=== PATIENT | male | born 1935 | race African-American/Black ===

== ENCOUNTER 2017-06-07 12:25 | Inpatient (IN) | payer MEDICARE ==
[2017-06-07] MEDS: IV NORMAL SALINE 1000ML BAG 1,000 ML IV ×4 (12:35→16:25)
[2017-06-07 13:03] LABS: ADD MAN DIFF? NO
[2017-06-07 13:05] LABS: BASO % 0 % (0-3); EOS % 0 % (0-3); HEMATOCRIT 47.7 % (39.0-53.0); HEMOGLOBIN 15.9 g/dL (13.0-17.5); LYMPH # 1.5 x10^3/uL (1.0-4.8); LYMPH % 15 % (24-48); MEAN CORPUSCULAR HEMOGLOBIN 27 pg (25-35); MEAN CORPUSCULAR HGB CONC 33 g/dL (31-37); MEAN CORPUSCULAR VOLUME 80 fL (79-100); MONO % 10 % (0-9); NEUT # 7.4 x10^3uL (1.8-7.7); NEUT % 74 % (31-73); PLATELET COUNT 152 x10^3/uL (140-400); RED BLOOD COUNT 5.99 x10^6/uL (4.30-5.70); RED CELL DISTRIBUTION WIDTH 17.8 % (11.5-14.5); WHITE BLOOD COUNT 9.9 x10^3/uL (4.0-11.0)
[2017-06-07 13:29] LABS: ANION GAP 15 (6-14); BLOOD UREA NITROGEN 38 mg/dL (8-26); BUN/CREATININE RATIO 11 (6-20); CALCIUM 9.5 mg/dL (8.5-10.1); CARBON DIOXIDE 25 mmol/L (21-32); CHLORIDE 104 mmol/L (98-107); CREATININE 3.6 mg/dL (0.7-1.3); GFR 19.7; GLUCOSE 148 mg/dL (70-99); POTASSIUM 4.7 mmol/L (3.5-5.1); SODIUM 144 mmol/L (136-145)
[2017-06-07 13:35] LABS: ALBUMIN 3.9 g/dL (3.4-5.0); ALBUMIN/GLOBULIN RATIO 0.8 (1.0-1.7); ALK PHOS 82 U/L (46-116); ALT (SGPT) 30 U/L (16-63); AST (SGOT) 17 U/L (15-37); CREATINE KINASE 66 U/L (39-308); TOTAL BILIRUBIN 0.4 mg/dL (0.2-1.0); TOTAL PROTEIN 8.8 g/dL (6.4-8.2)
[2017-06-07 13:45] LABS: LACTIC ACID 3.3 mmol/L (0.4-2.0)
[2017-06-07] MEDS ORDERED: ONDANSETRON PF 4 MG/2 ML VIAL. IV (14:30)
[2017-06-07] MEDS: VANCOMYCIN 2 GM in IV DEXTROSE 5% 500 ML IV (14:49)
[2017-06-07 15:47] LABS: BILIRUBIN,URINE SMALL (NEG); CLARITY,URINE TURBID; COLOR,URINE AMBER; GLUCOSE,URINE NEGATIVE (NEG); NITRITE,URINE NEGATIVE (NEG); PROTEIN,URINE 100 mg/dL (NEG-TRACE)
[2017-06-07 16:08] LABS: AMORPHOUS SEDIMENT,UR PRESENT /HPF; BACTERIA,URINE FEW /HPF (0-FEW); HYALINE CASTS, URINE MODERATE /HPF
[2017-06-07] MEDS: VANCOMYCIN PER PHARMACY MC (19:32)
[2017-06-07 20:29] LABS: LACTIC ACID 1.9 mmol/L (0.4-2.0)
[2017-06-07 21:57] LABS: INFLUENZA A PATIENT NEGATIVE (NEGATIVE); INFLUENZA B PATIENT NEGATIVE (NEGATIVE); OBC FLU VALID
[2017-06-08 05:47] LABS: ANION GAP 11 (6-14); BLOOD UREA NITROGEN 35 mg/dL (8-26); CALCIUM 8.7 mg/dL (8.5-10.1); CARBON DIOXIDE 24 mmol/L (21-32); CHLORIDE 109 mmol/L (98-107); CREATININE 1.7 mg/dL (0.7-1.3); GFR 46.9; GLUCOSE 87 mg/dL (70-99); POTASSIUM 4.6 mmol/L (3.5-5.1); SODIUM 144 mmol/L (136-145)
[2017-06-08] MEDS: IV NORMAL SALINE 1000ML BAG 1,000 ML IV ×2 (12:00→12:30)
[2017-06-08] MEDS: POLYETHYLENE GLYCOL 3350 17 GM PACKET. PO (12:31)
[2017-06-08] MEDS: FAMOTIDINE 20 MG TABLET. PO ×2 (12:38→22:46)
[2017-06-08] MEDS: levETIRAcetam 500 MG TABLET PO ×2 (12:38→22:47)
[2017-06-08] MEDS: ACETAMINOPHEN 325 MG TABLET. PO ×3 (12:38→22:47)
[2017-06-08] MEDS: VANCOMYCIN PER PHARMACY MC (20:05)
[2017-06-08 22:20] LABS: MRSA BY PCR Negative (Negative)
[2017-06-08] MEDS: VANCOMYCIN 1.25 GM in IV 1/2 NORMAL SALINE 250 ML IV (22:46)
[2017-06-08] MEDS: LACTOBACILLUS RHAMNOSUS GG 1 CAPSULE. PO (22:47)
[2017-06-09] MEDS: IV NORMAL SALINE 1000ML BAG 1,000 ML IV ×3 (01:20→16:33)
[2017-06-09 04:28] LABS: ADD MAN DIFF? NO
[2017-06-09 04:32] LABS: BASO % 1 % (0-3); EOS # 0.4 x10^3/uL (0.0-0.7); EOS % 6 % (0-3); HEMOGLOBIN 12.7 g/dL (13.0-17.5); LYMPH # 1.5 x10^3/uL (1.0-4.8); LYMPH % 24 % (24-48); MEAN CORPUSCULAR HEMOGLOBIN 26 pg (25-35); MEAN CORPUSCULAR HGB CONC 34 g/dL (31-37); MEAN CORPUSCULAR VOLUME 79 fL (79-100); MONO # 0.6 x10^3/uL (0.0-1.1); MONO % 10 % (0-9); NEUT # 3.7 x10^3uL (1.8-7.7); NEUT % 59 % (31-73); PLATELET COUNT 96 x10^3/uL (140-400); RED BLOOD COUNT 4.81 x10^6/uL (4.30-5.70); RED CELL DISTRIBUTION WIDTH 17.9 % (11.5-14.5); WHITE BLOOD COUNT 6.3 x10^3/uL (4.0-11.0)
[2017-06-09 04:50] LABS: ANION GAP 9 (6-14); BLOOD UREA NITROGEN 26 mg/dL (8-26); CARBON DIOXIDE 25 mmol/L (21-32); CHLORIDE 107 mmol/L (98-107); CREATININE 1.1 mg/dL (0.7-1.3); GFR 77.5; GLUCOSE 102 mg/dL (70-99); POTASSIUM 4.4 mmol/L (3.5-5.1); SODIUM 141 mmol/L (136-145)
[2017-06-09] MEDS: ACETAMINOPHEN 325 MG TABLET. PO ×3 (06:00→19:30)
[2017-06-09] MEDS: POLYETHYLENE GLYCOL 3350 17 GM PACKET. PO (09:00)
[2017-06-09] MEDS: VANCOMYCIN PER PHARMACY MC (10:15)
[2017-06-09] MEDS: FAMOTIDINE 20 MG TABLET. PO ×2 (11:04→20:38)
[2017-06-09] MEDS: levETIRAcetam 500 MG TABLET PO ×2 (11:04→20:38)
[2017-06-09] MEDS: LACTOBACILLUS RHAMNOSUS GG 1 CAPSULE. PO ×2 (11:04→20:38)
[2017-06-09] MEDS: VANCOMYCIN 1.25 GM in IV 1/2 NORMAL SALINE 250 ML IV (20:39)
[2017-06-10] MEDS: ACETAMINOPHEN 325 MG TABLET. PO ×3 (00:08→14:17)
[2017-06-10 05:14] LABS: ANION GAP 11 (6-14); BLOOD UREA NITROGEN 20 mg/dL (8-26); CALCIUM 8.8 mg/dL (8.5-10.1); CARBON DIOXIDE 23 mmol/L (21-32); CHLORIDE 107 mmol/L (98-107); CREATININE 0.9 mg/dL (0.7-1.3); GFR 97.8; GLUCOSE 95 mg/dL (70-99); POTASSIUM 4.5 mmol/L (3.5-5.1); SODIUM 141 mmol/L (136-145)
[2017-06-10 06:57] LABS: ADD MAN DIFF? NO
[2017-06-10 07:19] LABS: BASO % 1 % (0-3); EOS # 0.2 x10^3/uL (0.0-0.7); EOS % 4 % (0-3); HEMATOCRIT 37.7 % (39.0-53.0); HEMOGLOBIN 12.6 g/dL (13.0-17.5); LYMPH # 1.3 x10^3/uL (1.0-4.8); LYMPH % 22 % (24-48); MEAN CORPUSCULAR HEMOGLOBIN 27 pg (25-35); MEAN CORPUSCULAR HGB CONC 34 g/dL (31-37); MEAN CORPUSCULAR VOLUME 79 fL (79-100); MONO # 0.7 x10^3/uL (0.0-1.1); MONO % 12 % (0-9); NEUT # 3.7 x10^3uL (1.8-7.7); NEUT % 62 % (31-73); PLATELET COUNT 84 x10^3/uL (140-400); RED BLOOD COUNT 4.74 x10^6/uL (4.30-5.70)
[2017-06-10] MEDS: LACTOBACILLUS RHAMNOSUS GG 1 CAPSULE. PO (08:51)
[2017-06-10] MEDS: FAMOTIDINE 20 MG TABLET. PO (08:51)
[2017-06-10] MEDS: levETIRAcetam 500 MG TABLET PO (08:52)
[2017-06-10] MEDS: POLYETHYLENE GLYCOL 3350 17 GM PACKET. PO (08:52)
[2017-06-10] MEDS ORDERED: INFLUENZA VAX SCREEN BY RX. MC (12:35)
[2017-06-10] MEDS: FLU VACC QS2017-18 (36MOS+)/PF 0.5 ML SYRINGE. VAX IM (14:21)
[2017-06-11] MEDS ORDERED: ERGOCALCIFEROL (VITAMIN D2) 50,000 UNIT CAPSULE. PO (09:00)
[2017-07-08] MEDS ORDERED: CYANOCOBALAMIN (VITAMIN B-12) 1,000 MCG/ML VIAL IM (09:00)
== END 2017-06-10 15:13 | DRG 871 ==
LOC: ER 12:25 → 6 SOUTH 14:22
DX: A41.9 Sepsis, unspecified organism (principal); N17.0 Acute kidney failure with tubular necrosis; N39.0 Urinary tract infection, site not specified; G40.909 Epilepsy, unspecified, not intractable, without status epilepticus; K21.9 Gastro-esophageal reflux disease without esophagitis; N18.9 Chronic kidney disease, unspecified; R65.20 Severe sepsis without septic shock; Z82.49 Family history of ischemic heart disease and other diseases of the circulatory system; Z86.73 Personal history of transient ischemic attack (TIA), and cerebral infarction without residual deficits; Z96.641 Presence of right artificial hip joint
CPT/HCPCS: 36415; 51701; 70551; 71045; 80048; 80053; 81001; 82550; 83605; 85025; 87040; 87086; 87641; 87804; 87804-59; 90686; 92507-GN; 92523-GN; 93005; 95816; 96361; 96365; 97161-GP; 97165-GO; 99285; 99285-25; J0690; J3370; J7030

== ENCOUNTER → 2018-03-22 | Outpatient (CLI) | payer MEDICARE ==
[2017-06-10 11:50] VITALS: BP 112/61
[~2018-03-22] MED LIST: ACET325T9 PO; CYAN10002 IM; ERGO500027 PO; FAMO20TA5 PO; LEVE750T41 PO; POLY17PO29 PO
[2018-03-22 16:42] LABS: BASO % 1 % (0-3); EOS # 0.2 x10^3/uL (0.0-0.7); EOS % 3 % (0-3); HEMATOCRIT 41.7 % (39.0-53.0); HEMOGLOBIN 14.2 g/dL (13.0-17.5); LYMPH # 1.8 x10^3/uL (1.0-4.8); LYMPH % 35 % (24-48); MEAN CORPUSCULAR HEMOGLOBIN 28 pg (25-35); MEAN CORPUSCULAR HGB CONC 34 g/dL (31-37); MEAN CORPUSCULAR VOLUME 83 fL (79-100); MONO # 0.7 x10^3/uL (0.0-1.1); MONO % 13 % (0-9); NEUT # 2.6 x10^3uL (1.8-7.7); NEUT % 49 % (31-73); PLATELET COUNT 215 x10^3/uL (140-400); RED BLOOD COUNT 5.04 x10^6/uL (4.30-5.70); RED CELL DISTRIBUTION WIDTH 16.4 % (11.5-14.5); WHITE BLOOD COUNT 5.2 x10^3/uL (4.0-11.0)
[2018-03-22 16:51] LABS: BARBITURATES NEG (NEG); BENZODIAZEPINES NEG (NEG); CANNABINOIDS NEG (NEG); COCAINE NEG (NEG); METHADONE NEG (NEG); OPIATES NEG (NEG); PHENCYCLIDINE NEG (NEG)
[2018-03-22 16:53] LABS: AMPHETAMINE/METHAMPHETAMINE NEG (NEG)
[2018-03-22 17:04] LABS: ALBUMIN 3.5 g/dL (3.4-5.0); ALBUMIN/GLOBULIN RATIO 0.8 (1.0-1.7); CREATININE 1.3 mg/dL (0.7-1.3); GFR 63.8; POTASSIUM 4.2 mmol/L (3.5-5.1); TOTAL BILIRUBIN 0.2 mg/dL (0.2-1.0)
== END | disposition home or self-care (01) ==
LOC: LAB 15:57
PROVIDERS: ATTEND Psychiatry & Neurology Neurology
DX: R56.9 Unspecified convulsions (principal)
CPT/HCPCS: 36415; 80053; 80307; 82607; 84443; 85025

== ENCOUNTER → 2018-08-17 | Outpatient (CLI) | payer MEDICARE ==
[2017-06-10 11:50] VITALS: BP 112/61
[2018-08-17 13:53] LABS: CREATININE 1.2 mg/dL (0.7-1.3)
[2018-08-17 14:10] LABS: FREE T4 0.73 ng/dL (0.76-1.46); THYROID STIM HORMONE (TSH) 5.542 uIU/mL (0.358-3.74)
== END | disposition home or self-care (01) ==
LOC: LAB 13:13
PROVIDERS: ATTEND Psychiatry & Neurology Neurology
DX: R94.6 Abnormal results of thyroid function studies (principal)
CPT/HCPCS: 36415; 82565; 84439; 84443; 84481; 84520

== ENCOUNTER → 2018-09-14 | Outpatient (CLI) | payer MEDICARE ==
[2017-06-10 11:50] VITALS: BP 112/61
--- NOTE | 2018-09-21 13:22 | SLEEP ---
DATE OF STUDY: 09/14/2018 OBJECTIVE: The patient is an 83-year-old female with hypersomnia, rule out sleep apnea. Height 5 feet 10 inches, weight 217 pounds, body mass index 31. [place] sleep score 10. INTERPRETATION: Sleep architecture is characterized by a sleep efficiency of 75% across the 7 hours of recording time. There is absence of slow-wave sleep, but other staged volumes are normal. The sleep onset latency is 11.5 minutes. Respiratory monitoring shows a total of 77 events for an apnea-hypopnea index of 14.6 events per hour of sleep. The minimum oxygen saturation is 73%. The patient is placed on CPAP treatment during the recording. At a setting of 15 cm, apnea-hypopnea index falls to 2.5 events per hour of sleep. The cardiac monitoring that shows no evidence of arrhythmia. Periodic limb movements of sleep occur at the rate of 25 per hour, 2 per hour associated with arousal. Note that the patient still had snoring on 9 cm, which was the reason for higher CPAP titration. IMPRESSION: Abnormal polysomnogram showing obstructive sleep apnea and hypopnea, treatable on 15 cm of CPAP using a Resp[employer]ics DreamWear medium wide full face mask. RECOMMENDATION: 1. The patient should be established on the CPAP setting. 2. The patient should avoid sedatives and alcohol, avoid the supine position, and pursue weight loss. Thank you for allowing us to help with the patient's care. CHRISTIAN BALL MD DR: CHESTER/hawa JOB#: [id number] / [id number] DANIEL Prieto MD, FERILYN MD
== END | disposition home or self-care (01) ==
LOC: SLPLAB 19:12
PROVIDERS: ATTEND Psychiatry & Neurology Neurology
DX: G47.33 Obstructive sleep apnea (adult) (pediatric) (principal)
CPT/HCPCS: 95810

== ENCOUNTER 2019-12-18 14:08 | Inpatient (IN) | payer MEDICARE ==
[~2019-12-18] VITALS: Ht 177.8 cm; Wt 92.5 kg
[2019-12-18] MEDS ORDERED: IV NORMAL SALINE 1000ML BAG 1,000 ML IV ONE ×3 (14:15→17:30)
--- NOTE | 2019-12-18 14:50 | RAD ---
CT HEAD WO CONTRAST Date: 12/18/2019 2:10 PM Clinical Indication: trauma, mechanical fall, pain Comparison: 10/10/2019. Technique: 5 mm axial tomographic images were obtained of the head without contrast. These were viewed on brain and bone windows. One or more of the following dose reduction techniques were utilized: Automated exposure control (AEC), Adjustment of mA and/or kV according to patient size, Use of iterative reconstruction technique such as ASiR, CT scan done according to ALARA and image gently/image wisely Findings: Moderate generalized cerebral and cerebellar volume loss. Extensive nonspecific periventricular hypoattenuation, most commonly seen with chronic small vessel ischemic disease. Calcified atherosclerosis of the bilateral cavernous and paraclinoid internal carotid arteries and intracranial vertebral arteries. Chronic thalamic, pontine, and cerebellar lacunar infarcts. No intra- or extra-axial mass or fluid collection. No acute hemorrhage. The ventricles are normal in size, shape, and morphology. The dominguez-white matter junction is normal. The subarachnoid cisterns are patent. The visualized paranasal sinuses are normal. The visualized portions of the orbits and globes are normal. The mastoid air cells are clear. The cycle counter topogram shows no lytic lesion or fracture. Impression: No acute intracranial process. Moderate cerebral volume loss. Extensive chronic small vessel ischemic disease. Electronically signed by: Tyron Myers MD (12/18/2019 2:47 PM) [id number]
[2019-12-18 16:22] LABS: BILIRUBIN,URINE LARGE (NEG); CLARITY,URINE CLEAR; COLOR,URINE AMBER; NITRITE,URINE NEGATIVE (NEG); PH,URINE 5.5 (<5.0-8.0); PROTEIN,URINE 30 mg/dL (NEG-TRACE)
[2019-12-18 16:33] LABS: AMORPHOUS SEDIMENT,UR PRESENT /HPF; BACTERIA,URINE 0 /HPF (0-FEW); GRANULAR CASTS,URINE FEW /HPF; HYALINE CASTS, URINE OCCASIONAL /HPF; RBC,URINE 0 /HPF (0-2); SQUAMOUS EPITHELIAL CELL,UR OCC /LPF; WBC,URINE RARE /HPF (0-4)
--- NOTE | 2019-12-18 16:40 | PHYS DOC ---
Past Medical History Past Medical History: Anemia, CVA, GERD, Seizure, Other Additional Past Medical Histor: EPILEPSY,DYSPHAGIA,RHABDOMYOLYSIS,NECK FX (FREDDIE ROME DO) Past Surgical History: Other Additional Past Surgical Histo: HIP, KNEE,R HEEL (FREDDIE ROME DO) Smoking Status: Former Smoker Alcohol Use: None Drug Use: None (FREDDIE ROME DO) General Adult EDM: Chief Complaint: MECHANICAL FALL HPI: HPI: Patient is an 84-year-old male who presents from home via EMS after falling at home. He states his feet got tangled up and he fell down. He does not recall hitting his head and he does not think he lost consciousness. He states he is laid on his back now for 2 days until he was found by family and EMS was called. He denies any nausea or vomiting. He states he has not had much to drink or eat in the last 2 days. He denies any fever chills or sweats. He states he has some pain in his back but nowhere else. (FREDDIE ROME DO) Review of Systems: Review of Systems: Constitutional: Denies fever or chills. [] Eyes: Denies change in visual acuity. [] HENT: Denies nasal congestion or sore throat. [] Respiratory: Denies cough or shortness of breath. [] Cardiovascular: Denies chest pain or edema. [] GI: Denies abdominal pain, nausea, vomiting, bloody stools or diarrhea. [] : Denies dysuria. [] Musculoskeletal: Reports back pain [] Integument: Denies rash. [] Neurologic: Denies headache, focal weakness or sensory changes. [] Endocrine: Denies polyuria or polydipsia. [] Lymphatic: Denies swollen glands. [] Psychiatric: Denies depression or anxiety. [] (FREDDIE ROME DO) Heart Score: Risk Factors: Risk Factors: DM, Current or recent (<one month) smoker, HTN, HLP, family history of CAD, obesity. Risk Scores: Score 0 - 3: 2.5% MACE over next 6 weeks - Discharge Home Score 4 - 6: 20.3% MACE over next 6 weeks - Admit for Clinical Observation Score 7 - 10: 72.7% MACE over next 6 weeks - Early Invasive Strategies (FREDDIE ROME DO) Current Medications: Current Medications Medications (Trade) Dose Ordered Sig/Sriram Start Time Stop Time Status Last Admin Dose Admin Sodium Chloride 1,000 ml @ 1,000 mls/hr 1X ONCE 12/18/19 14:15 12/18/19 15:14 DC 12/18/19 15:37 1,000 MLS/HR (FREDDIE ROME DO) Allergies: Allergies: Allergies Coded Allergies Type Severity Reaction Last Updated Verified No Known Drug Allergies 07/30/14 No (FREDDIE ORME DO) Physical Exam: PE: Constitutional: Frail, elderly appears weak but not acutely ill. [] HENT: Normocephalic, atraumatic, bilateral external ears normal, oropharynx moist, no oral exudates, nose normal. [] Eyes: PERRLA, EOMI, conjunctiva normal, no discharge. [] Neck: Normal range of motion, no tenderness, supple, no stridor. [] Cardiovascular:Heart rate regular rhythm, no murmur [] Lungs & Thorax: Bilateral breath sounds clear to auscultation [] Abdomen: Bowel sounds normal, soft, no tenderness, no masses, no pulsatile masses. [] Skin: Warm, dry, no erythema, no rash. [] Back: No tenderness, no CVA tenderness. [] Extremities: No tenderness, no cyanosis, no clubbing, ROM intact, no edema. [] Neurologic: Awake alert oriented x3 [] Psychologic: Depressed affect. [] (FREDDIE ROME DO) Current Patient Data: Labs: Laboratory Tests Test 12/18/19 15:55 Urine Collection Type U cath Urine Color [place]in Urine Clarity Clear Urine pH 5.5 (<5.0-8.0) Urine Specific [place] >=1.030 (1.000-1.030) Urine Protein 30 mg/dL (NEG-TRACE) Urine Glucose (UA) Negative mg/dL (NEG) Urine Ketones (Stick) >=80 mg/dL (NEG) Urine Blood Negative (NEG) Urine Nitrite Negative (NEG) Urine Bilirubin Large (NEG) Urine Urobilinogen Dipstick 1.0 mg/dL (0.2 mg/dL) Urine Leukocyte Esterase Negative (NEG) Urine RBC 0 /HPF (0-2) Urine WBC Rare /HPF (0-4) Urine Squamous Epithelial Cells Occ /LPF Urine Amorphous Sediment Present /HPF Urine Bacteria 0 /HPF (0-FEW) Urine Hyaline Casts Occasional /HPF Urine Granular Casts Few /HPF Urine Mucus Mod /LPF (FREDDIE ROME DO) EKG: EKG: EKG: Sinus tachycardia rate of [address] T changes [] (FREDDIE ROME DO) Radiology/Procedures: Radiology/Procedures: [REASON: trauma, mechanical fall PROCEDURE: CT HEAD WO CONTRAST CT HEAD WO CONTRAST Date: 12/18/2019 2:10 PM Clinical Indication: trauma, mechanical fall, pain Comparison: 10/10/2019. Technique: 5 mm axial tomographic images were obtained of the head without contrast. These were viewed on brain and bone windows. One or more of the following dose reduction techniques were utilized: Automated exposure control (AEC), Adjustment of mA and/or kV according to patient size, Use of iterative reconstruction technique such as ASiR, CT scan done according to ALARA and image gently/image wisely Findings: Moderate generalized cerebral and cerebellar volume loss. Extensive nonspecific periventricular hypoattenuation, most commonly seen with chronic small vessel ischemic disease. Calcified atherosclerosis of the bilateral cavernous and paraclinoid internal carotid arteries and intracranial vertebral arteries. Chronic thalamic, pontine, and cerebellar lacunar infarcts. No intra- or extra-axial mass or fluid collection. No acute hemorrhage. The ventricles are normal in size, shape, and morphology. The dominguez-white matter junction is normal. The subarachnoid cisterns are patent. The visualized paranasal sinuses are normal. The visualized portions of the orbits and globes are normal. The mastoid air cells are clear. The substance abuse services director topogram shows no lytic lesion or fracture. Impression: No acute intracranial process. Moderate cerebral volume loss. Extensive chronic small vessel ischemic disease.] (FREDDIE ROME DO) Course & Med Decision Making: Course & Med Decision Making Pertinent Labs and Imaging studies reviewed. (See chart for details) [Procedure: Right subclavian central venous line attempt The right subclavian area was prepped and draped in a sterile fashion then using that the typical central venous line needle landmarks were identified the needle was inserted underneath the lateral third of the right clavicle however I was unable to cannulate the right subclavian vessel. There was never a point when I withdrew air. Patient tolerated the attempt well.] (FREDDIE ROME DO) Course & Med Decision Making 2110-patient was seen and examined. The patient is good to be admitted for rhabdomyolysis with an elevated CPK and a prolonged time down. I discussed the case with Dr. Dubose who agreed to admit the patient. (TAMMY SANTOS MD) Dragon Disclaimer: Dragon Disclaimer: This electronic medical record was generated, in whole or in part, using a voice recognition dictation system. (FREDDIE ROME DO) Departure Departure Impression: Primary Impression: Rhabdomyolysis Qualified Codes: M62.82 - Rhabdomyolysis Additional Impression: Fall Qualified Codes: W19.XXXA - Unspecified fall, initial encounter Disposition: ADMITTED INPATIENT Condition: STABLE Referrals: DANIEL BRYSON MD (PCP) Justicifation of Admission Dx: Justifications for Admission: Justification of Admission Dx: Yes Acute Renal Failure: 75% Reduction in GFR Altered Mental Status: Altered Mental Status (FREDDIE ROME DO) Justification of Admission Dx: Yes Comments: Rhabdomyolysis (TAMMY SANTOS MD) FREDDIE ROME DO Dec 18, 2019 16:40 TAMMY SANTOS MD Dec 18, 2019 21:13
--- NOTE | 2019-12-18 19:19 | RAD ---
EXAM: CHEST AP ONLY INDICATION: Reason: Central Venous Line placement / Spl. Instructions: / History: . TECHNIQUE: Single view COMPARISON: Chest x-ray of 07/03/2019 and 06/07/2017 FINDINGS: The heart size is normal. Great vessels show mediastinal widening, similar to prior. No hilar adenopathy is apparent. The lungs are clear. There is no pleural effusion or pneumothorax. There are no significant osseous abnormalities. IMPRESSION: 1. No central venous catheter is identified in the included field of view. Correlate clinically. 2. 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 Chest CT is recommended if clinically appropriate for further evaluation and follow-up, which can be done on an elective basis. Electronically signed by: Christina Burnett MD (12/18/2019 7:17 PM) [facility] [place]
[2019-12-18 20:01] LABS: BASE EXCESS COOX -4 mmol/L (-3-3); HCO3 COOX 19 mmol/L (21-28); METHEMOGLOBIN 0.6 % (0.0-1.9); OXYHEMOGLOBIN 95.4 %; PCO2 COOX 31 mmHg (35-46); PO2 COOX 89 mmHg (65-108); SAT O2 COOX 97 % (92-99)
[2019-12-18 20:04] LABS: BASO % 0 % (0-3); EOS % 0 % (0-3); HEMOGLOBIN 15.3 g/dL (13.0-17.5); LYMPH # 0.6 x10^3/uL (1.0-4.8); LYMPH % 7 % (24-48); MEAN CORPUSCULAR HEMOGLOBIN 29 pg (25-35); MEAN CORPUSCULAR HGB CONC 35 g/dL (31-37); MEAN CORPUSCULAR VOLUME 84 fL (79-100); MONO # 1.8 x10^3/uL (0.0-1.1); MONO % 20 % (0-9); NEUT # 6.5 x10^3/uL (1.8-7.7); NEUT % 73 % (31-73); PLATELET COUNT 186 x10^3/uL (140-400); RED BLOOD COUNT 5.25 x10^6/uL (4.30-5.70); RED CELL DISTRIBUTION WIDTH 16.2 % (11.5-14.5); WHITE BLOOD COUNT 8.9 x10^3/uL (4.0-11.0)
[2019-12-18 20:21] LABS: CALCIUM 8.1 mg/dL (8.5-10.1); CREATININE 0.9 mg/dL (0.7-1.3)
[2019-12-18 20:39] LABS: % EOS 1 % (0-5); % LYMPHS 10 % (24-48); % MONOS 20 % (0-10); % SEGS 69 % (35-66); ALBUMIN 2.6 g/dL (3.4-5.0); ALBUMIN/GLOBULIN RATIO 0.7 (1.0-1.7); MAGNESIUM 1.9 mg/dL (1.8-2.4); PLT ESTIMATE ADEQUATE (ADEQUATE); TOTAL BILIRUBIN 0.6 mg/dL (0.2-1.0); TOTAL PROTEIN 6.6 g/dL (6.4-8.2)
[2019-12-18 20:40] LABS: SCHISTOCYTES OCC; TARGET CELLS FEW
[2019-12-18 23:00] VITALS: BP 154/88
[2019-12-18] MEDS ORDERED: ONDANSETRON PF 4 MG/2 ML VIAL. IV PRN (23:45)
[2019-12-18] MEDS ORDERED: ACETAMINOPHEN 325 MG TABLET. PO PRN (23:45)
[2019-12-19] MEDS ORDERED: ASPIRIN 325 MG TABLET PO PRN
[2019-12-19] MEDS: levETIRAcetam 250 MG TABLET PO SCH ×3 (00:04→20:41)
[2019-12-19] MEDS: ENOXAPARIN 40 MG/0.4 ML SYRINGE. SQ SCH ×2 (00:04→20:43)
[2019-12-19] MEDS ORDERED: IV NORMAL SALINE 1000ML BAG 1,000 ML IV ONE (00:30)
[2019-12-19 03:00] VITALS: BP 123/71
[2019-12-19 07:00] VITALS: BP 124/55
--- NOTE | 2019-12-19 07:55 | EKG ---
[facility] [address] [place] [address] Test Date: 2019-12-18 Test Time: 15:22:37 Pat Name: YONATHAN RIVERA Department: Room: Gender: M Body Recall Instructor: : 1935 Requested By: FREDDIE ROME Order Number: [id number] Reading MD: Measurements Intervals [place] Rate: 99 P: 66 OK: 164 QRS: -46 QRSD: 68 T: 51 QT: 334 QTc: 434 Interpretive Statements SINUS RHYTHM ABNORMAL LEFT AXIS DEVIATION LOW LIMB LEAD VOLTAGE QRS(T) CONTOUR ABNORMALITY CONSISTENT WITH INFERIOR INFARCT PROBABLY OLD ABNORMAL ECG RI6.02 No previous ECG available for comparison
[2019-12-19 08:07] LABS: CALCIUM 8.4 mg/dL (8.5-10.1); GFR 85.9; POTASSIUM 3.9 mmol/L (3.5-5.1)
--- NOTE | 2019-12-19 09:28 | NUR ---
SW following. Discussed with RN, pt from home alone, found on floor by neighbor. Last admission, pt discharged with [facility]. ARMANI spoke with Carol at [facility] to determine if pt still on services, pt was discharged from home health in October because per Carol, he wanted to go to the [facility], and was refusing to let home health in the home. PT/OT ordered. ARMANI will continue to follow. Addendum: 12/19/19 at 1417 by NILDA LOMELI ARMANI attempted to meet with pt to discuss discharge planning, however pt was asleep and would not wake. Pt had COVID-19 swab today. ARMANI will attempt again later. RN notified. Pt has been to [facility] in the past.
[2019-12-19] MEDS: IV NORMAL SALINE 1000ML BAG 1,000 ML IV SCH ×3 (09:34→22:20)
--- NOTE | 2019-12-19 09:40 | PDOC1 ---
History and Physical Date of Admission Date of Admission DATE: 12/19/19 TIME: 09:11 Identification/Chief Complaint Chief Complaint Seizure, mechanical fall Problems: (1) Person under investigation for COVID-19 (2) Seizure (3) Rhabdomyolysis (4) Fall Source Source: Chart review, Patient History of Present Illness History of Present Illness Patient is an 84-year-old male with past medical history of seizure disorder, who presents by EMS to the emergency department for a suspected seizure at home and mechanical fall. Patient is somewhat of a poor historian but is able to admit that he woke up a day or two ago on the floor and had soiled himself. He denies any head injury at home. He is unsure if he had a mechanical fall, but feels he may have had a seizure, as he does admit to poor medication compliance. Patient states he lives home alone but was found by his neighbors and taken to the emergency department by EMS for evaluation. Reason for Visit: Seizure, mechanical fall Past Medical History Past Medical History CENTRAL NERVOUS SYSTEM: Seizure, Other GI: GERD Heme/Onc: Anemia NOS Psych: Addictions Cardiovascular: Other Pulmonary: Other CENTRAL NERVOUS SYSTEM: Seizure, Other GI: GERD Heme/Onc: Anemia NOS Psych: Addictions Renal/: Urinary Incontinence Past Surgical History Past Surgical History Total hip replacement, Other Past Surgical History: Pacemaker, Total hip replacement, Other Family History Family History Family History Reviewed Family History: Family History Unknown Family History: Family History Unknown Social History Smoke: No ALCOHOL: none Drugs: None Current Problem List Problem List Problems Medical Problems: (1) Fall Status: Acute (2) Rhabdomyolysis Status: Acute Problems: (1) Rhabdomyolysis (2) Fall (3) Seizure (4) Person under investigation for COVID-19 Current Medications Current Medications Current Medications Sodium Chloride 1,000 ml @ 1,000 mls/hr 1X ONCE IV Last administered on 12/18/19at 15:37; Start 12/18/19 at 14:15; Stop 12/18/19 at 15:14; Status DC Sodium Chloride 1,000 ml @ 1,000 mls/hr 1X ONCE IV Last administered on 12/18/19at 20:06; Start 12/18/19 at 17:30; Stop 12/18/19 at 18:29; Status DC Sodium Chloride 1,000 ml @ 1,000 mls/hr 1X ONCE IV Last administered on 12/18/19at 17:55; Start 12/18/19 at 17:30; Stop 12/18/19 at 18:29; Status DC Ondansetron HCl (Zofran) 4 mg PRN Q4HRS PRN IV NAUSEA/VOMITING 1ST CHOICE; Start 12/18/19 at 23:45 Acetaminophen (Tylenol) 650 mg PRN Q4HRS PRN PO TEMP OVER 100.4F OR MILD PAIN; Start 12/18/19 at 23:45 Enoxaparin Sodium (Lovenox 40mg Syringe) 40 mg QHS SQ Last administered on 12/19/19at 00:04; Start 12/18/19 at 23:45 Levetiracetam (Keppra) 750 mg BID PO Last administered on 12/19/19at 08:30; Start 12/19/19 at 00:00 Aspirin (Vicente Aspirin) 325 mg PRN BID PRN PO MILD PAIN 1-3; Start 12/19/19 at 00:00 Sodium Chloride 1,000 ml @ 75 mls/hr 1X ONCE IV Last administered on 12/19/19at 00:05; Start 12/19/19 at 00:30; Stop 12/19/19 at 13:49 Sodium Chloride 1,000 ml @ 150 mls/hr Q6H40M IV ; Start 12/19/19 at 08:42; Status UNV Active Scripts Active Reported Tylenol (Acetaminophen) 325 Mg Tablet 650 Mg PO Q6HRS Keppra (Levetiracetam) 750 Mg Tablet 750 Mg PO BID Allergies Allergies: Coded Allergies: No Known Drug Allergies (Unverified , 07/30/14) ROS Musculoskeletal: Yes Pain In: (Left hip with ambulation) Neurological: Yes Seizures Physical Exam General: Alert, Oriented X3 HEENT: Atraumatic, PERRLA, Other (No tongue lacerations) Lungs: Clear to auscultation, Normal air movement Heart: S1S2, RRR, no jug vein distention Cardiovascular: S1, S2 Abdomen: Normal bowel sounds, Soft, No tenderness Extremities: No clubbing, No cyanosis, Other (2+ bilateral edema) Skin: No rashes, No breakdown Neuro: Sensation intact Psych/Mental Status: Mood NL Vitals Vitals Vital Signs Date Time Temp Pulse Resp B/P (MAP) Pulse Ox O2 Delivery O2 Flow Rate FiO2 12/19/19 07:29 Room Air 12/19/19 07:00 98.4 64 16 124/55 (78) 97 98.4 Labs Labs Laboratory Tests Test 12/18/19 15:55 12/18/19 19:50 12/18/19 19:59 12/19/19 07:35 Urine Collection Type U cath Urine Color Carolin Urine Clarity Clear Urine pH 5.5 (<5.0-8.0) Urine Specific [place] >=1.030 (1.000-1.030) Urine Protein 30 mg/dL (NEG-TRACE) Urine Glucose (UA) Negative mg/dL (NEG) Urine Ketones (Stick) >=80 mg/dL (NEG) Urine Blood Negative (NEG) Urine Nitrite Negative (NEG) Urine Bilirubin Large (NEG) Urine Urobilinogen Dipstick 1.0 mg/dL (0.2 mg/dL) Urine Leukocyte Esterase Negative (NEG) Urine RBC 0 /HPF (0-2) Urine WBC Rare /HPF (0-4) Urine Squamous Epithelial Cells Occ /LPF Urine Amorphous Sediment Present /HPF Urine Bacteria 0 /HPF (0-FEW) Urine Hyaline Casts Occasional /HPF Urine Granular Casts Few /HPF Urine Mucus Mod /LPF White Blood Count 8.9 x10^3/uL (4.0-11.0) Red Blood Count 5.25 x10^6/uL (4.30-5.70) Hemoglobin 15.3 g/dL (13.0-17.5) Hematocrit 44.0 % (39.0-53.0) Mean Corpuscular Volume 84 fL (79-100) Mean Corpuscular Hemoglobin 29 pg (25-35) Mean Corpuscular Hemoglobin Concent 35 g/dL (31-37) Red Cell Distribution Width 16.2 % (11.5-14.5) Platelet Count 186 x10^3/uL (140-400) Neutrophils (%) (Auto) 73 % (31-73) Lymphocytes (%) (Auto) 7 % (24-48) Monocytes (%) (Auto) 20 % (0-9) Eosinophils (%) (Auto) 0 % (0-3) Basophils (%) (Auto) 0 % (0-3) Neutrophils # (Auto) 6.5 x10^3/uL (1.8-7.7) Lymphocytes # (Auto) 0.6 x10^3/uL (1.0-4.8) Monocytes # (Auto) 1.8 x10^3/uL (0.0-1.1) Eosinophils # (Auto) 0.0 x10^3/uL (0.0-0.7) Basophils # (Auto) 0.0 x10^3/uL (0.0-0.2) Segmented Neutrophils % 69 % (35-66) Lymphocytes % 10 % (24-48) Monocytes % 20 % (0-10) Eosinophils % 1 % (0-5) Platelet Estimate Adequate (ADEQUATE) Large Platelets Occ Target Cells Few Schistocytes Occ Sodium Level 142 mmol/L (136-145) 143 mmol/L (136-145) Potassium Level 4.0 mmol/L (3.5-5.1) 3.9 mmol/L (3.5-5.1) Chloride Level 105 mmol/L (98-107) 107 mmol/L (98-107) Carbon Dioxide Level 22 mmol/L (21-32) 28 mmol/L (21-32) Anion Gap 15 (6-14) 8 (6-14) Blood Urea Nitrogen 23 mg/dL (8-26) 19 mg/dL (8-26) Creatinine 0.9 mg/dL (0.7-1.3) 1.0 mg/dL (0.7-1.3) Estimated GFR (Cockcroft-Gault) 97.0 85.9 BUN/Creatinine Ratio 26 (6-20) Glucose Level 87 mg/dL (70-99) 122 mg/dL (70-99) Lactic Acid Level 1.1 mmol/L (0.4-2.0) Calcium Level 8.1 mg/dL (8.5-10.1) 8.4 mg/dL (8.5-10.1) Magnesium Level 1.9 mg/dL (1.8-2.4) Total Bilirubin 0.6 mg/dL (0.2-1.0) Aspartate Amino Transf (AST/SGOT) 80 U/L (15-37) Alanine Aminotransferase (ALT/SGPT) 28 U/L (16-63) Alkaline Phosphatase 56 U/L (46-116) Creatine Kinase 2486 U/L (39-308) 2425 U/L (39-308) Troponin I Quantitative < 0.017 ng/mL (0.000-0.055) Total Protein 6.6 g/dL (6.4-8.2) Albumin 2.6 g/dL (3.4-5.0) Albumin/Globulin Ratio 0.7 (1.0-1.7) O2 Saturation 97 % (92-99) Arterial Blood pH 7.41 (7.35-7.45) Arterial Blood pCO2 at Patient Temp 31 mmHg (35-46) Arterial Blood pO2 at Patient Temp 89 mmHg (65-108) Arterial Blood HCO3 19 mmol/L (21-28) Arterial Blood Base Excess -4 mmol/L (-3-3) Oxyhemoglobin 95.4 % Methemoglobin 0.6 % (0.0-1.9) Carbon Monoxide, Quantitative 0.5 % (0.0-1.9) FiO2 21 Laboratory Tests Test 12/18/19 15:55 12/18/19 19:50 12/18/19 19:59 12/19/19 07:35 Urine Collection Type U cath Urine Color Carolin Urine Clarity Clear Urine pH 5.5 (<5.0-8.0) Urine Specific [place] >=1.030 (1.000-1.030) Urine Protein 30 mg/dL (NEG-TRACE) Urine Glucose (UA) Negative mg/dL (NEG) Urine Ketones (Stick) >=80 mg/dL (NEG) Urine Blood Negative (NEG) Urine Nitrite Negative (NEG) Urine Bilirubin Large (NEG) Urine Urobilinogen Dipstick 1.0 mg/dL (0.2 mg/dL) Urine Leukocyte Esterase Negative (NEG) Urine RBC 0 /HPF (0-2) Urine WBC Rare /HPF (0-4) Urine Squamous Epithelial Cells Occ /LPF Urine Amorphous Sediment Present /HPF Urine Bacteria 0 /HPF (0-FEW) Urine Hyaline Casts Occasional /HPF Urine Granular Casts Few /HPF Urine Mucus Mod /LPF White Blood Count 8.9 x10^3/uL (4.0-11.0) Red Blood Count 5.25 x10^6/uL (4.30-5.70) Hemoglobin 15.3 g/dL (13.0-17.5) Hematocrit 44.0 % (39.0-53.0) Mean Corpuscular Volume 84 fL (79-100) Mean Corpuscular Hemoglobin 29 pg (25-35) Mean Corpuscular Hemoglobin Concent 35 g/dL (31-37) Red Cell Distribution Width 16.2 % (11.5-14.5) Platelet Count 186 x10^3/uL (140-400) Neutrophils (%) (Auto) 73 % (31-73) Lymphocytes (%) (Auto) 7 % (24-48) Monocytes (%) (Auto) 20 % (0-9) Eosinophils (%) (Auto) 0 % (0-3) Basophils (%) (Auto) 0 % (0-3) Neutrophils # (Auto) 6.5 x10^3/uL (1.8-7.7) Lymphocytes # (Auto) 0.6 x10^3/uL (1.0-4.8) Monocytes # (Auto) 1.8 x10^3/uL (0.0-1.1) Eosinophils # (Auto) 0.0 x10^3/uL (0.0-0.7) Basophils # (Auto) 0.0 x10^3/uL (0.0-0.2) Segmented Neutrophils % 69 % (35-66) Lymphocytes % 10 % (24-48) Monocytes % 20 % (0-10) Eosinophils % 1 % (0-5) Platelet Estimate Adequate (ADEQUATE) Large Platelets Occ Target Cells Few Schistocytes Occ Sodium Level 142 mmol/L (136-145) 143 mmol/L (136-145) Potassium Level 4.0 mmol/L (3.5-5.1) 3.9 mmol/L (3.5-5.1) Chloride Level 105 mmol/L (98-107) 107 mmol/L (98-107) Carbon Dioxide Level 22 mmol/L (21-32) 28 mmol/L (21-32) Anion Gap 15 (6-14) 8 (6-14) Blood Urea Nitrogen 23 mg/dL (8-26) 19 mg/dL (8-26) Creatinine 0.9 mg/dL (0.7-1.3) 1.0 mg/dL (0.7-1.3) Estimated GFR (Cockcroft-Gault) 97.0 85.9 BUN/Creatinine Ratio 26 (6-20) Glucose Level 87 mg/dL (70-99) 122 mg/dL (70-99) Lactic Acid Level 1.1 mmol/L (0.4-2.0) Calcium Level 8.1 mg/dL (8.5-10.1) 8.4 mg/dL (8.5-10.1) Magnesium Level 1.9 mg/dL (1.8-2.4) Total Bilirubin 0.6 mg/dL (0.2-1.0) Aspartate Amino Transf (AST/SGOT) 80 U/L (15-37) Alanine Aminotransferase (ALT/SGPT) 28 U/L (16-63) Alkaline Phosphatase 56 U/L (46-116) Creatine Kinase 2486 U/L (39-308) 2425 U/L (39-308) Troponin I Quantitative < 0.017 ng/mL (0.000-0.055) Total Protein 6.6 g/dL (6.4-8.2) Albumin 2.6 g/dL (3.4-5.0) Albumin/Globulin Ratio 0.7 (1.0-1.7) O2 Saturation 97 % (92-99) Arterial Blood pH 7.41 (7.35-7.45) Arterial Blood pCO2 at Patient Temp 31 mmHg (35-46) Arterial Blood pO2 at Patient Temp 89 mmHg (65-108) Arterial Blood HCO3 19 mmol/L (21-28) Arterial Blood Base Excess -4 mmol/L (-3-3) Oxyhemoglobin 95.4 % Methemoglobin 0.6 % (0.0-1.9) Carbon Monoxide, Quantitative 0.5 % (0.0-1.9) FiO2 [address] HEAD WO CONTRAST Date: 12/18/2019 2:10 PM Clinical Indication: trauma, mechanical fall, pain Comparison: 10/10/2019. Technique: 5 mm axial tomographic images were obtained of the head without contrast. These were viewed on brain and bone windows. One or more of the following dose reduction techniques were utilized: Automated exposure control (AEC), Adjustment of mA and/or kV according to patient size, Use of iterative reconstruction technique such as ASiR, CT scan done according to ALARA and image gently/image wisely Findings: Moderate generalized cerebral and cerebellar volume loss. Extensive nonspecific periventricular hypoattenuation, most commonly seen with chronic small vessel ischemic disease. Calcified atherosclerosis of the bilateral cavernous and paraclinoid internal carotid arteries and intracranial vertebral arteries. Chronic thalamic, pontine, and cerebellar lacunar infarcts. No intra- or extra-axial mass or fluid collection. No acute hemorrhage. The ventricles are normal in size, shape, and morphology. The dominguez-white matter junction is normal. The subarachnoid cisterns are patent. The visualized paranasal sinuses are normal. The visualized portions of the orbits and globes are normal. The mastoid air cells are clear. The covered buckle assembler topogram shows no lytic lesion or fracture. Impression: No acute intracranial process. Moderate cerebral volume loss. Extensive chronic small vessel ischemic disease. VTE Prophylaxis Ordered VTE Prophylaxis Devices: Yes VTE Pharmacological Prophylaxi: Yes Assessment/Plan Assessment/Plan Rhabdomyolysis, possible seizure, possible mechanical fall at home: I will trend patient's CK and give IV fluids; no signs of renal failure at this time. Will perform syncope work-up with orthostatic vitals and echo. I have consulted neurology to evaluate patient's history of seizure disorder. PT/OT for possible inpatient rehab. Nutrition consult. Full code. Justicifation of Admission Dx: Justifications for Admission: Justification of Admission Dx: Yes Acute Renal Failure: 75% Reduction in GFR Altered Mental Status: Altered Mental Status Problem Qualifiers (1) Rhabdomyolysis: Rhabdomyolysis type: non-traumatic Qualified Codes: M62.82 - Rhabdomyolysis (2) Fall: Encounter type: initial encounter Qualified Codes: W19.XXXA - Unspecified fall, initial encounter CURTIS KAT MD Dec 19, 2019 09:40
[2019-12-19 11:00] VITALS: BP 120/58
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
[2019-12-19 15:00] VITALS: BP 110/60
--- NOTE | 2019-12-19 16:43 | NUR ---
Wound care Wound care consult for pressure ulcer to sacrum. Pt has stage II with DTI to sacrum, dressed with Xeroform and foam, change every 2 days. Pt also has DTI to left heel, an intact blister to left lateral knee, and an abrasion to right back, dressed with skin prep and foam, change every 2 days. Pt placed on WC cushion, RN to order P500 bed, pt educated on PU prevention and healing, will need reinforcement of teaching. WC will continue to follow for possible changes.
[2019-12-19 19:00] VITALS: BP 120/60
[2019-12-19 23:00] VITALS: BP 124/72
[2019-12-20 03:00] VITALS: BP 114/68
[2019-12-20] MEDS: IV NORMAL SALINE 1000ML BAG 1,000 ML IV SCH ×4 (04:42→22:40)
[2019-12-20 07:00] VITALS: BP 119/66
[2019-12-20] MEDS: levETIRAcetam 250 MG TABLET PO SCH ×2 (08:52→21:26)
[2019-12-20] MEDS: MULTIVITAMIN with MINERAL TABLET. PO SCH (08:52)
[2019-12-20] MEDS: ASCORBIC ACID 500 MG TABLET PO SCH (08:52)
--- NOTE | 2019-12-20 09:39 | NUR ---
SW following. Discussed with RN, PT/OT recommending SNU. ARMANI met with pt (no isolation precautions at the time), pt agreeable would like referral to [facility], to try going there instead of [place]. Pt having an echo today, COVID-19 pending for placement. ARMANI phoned and faxed referral to [facility], awaiting acceptance decision. Addendum: 12/20/19 at 1506 by NILDA LOMELI Pt accepted at [facility] for SNU, pending insurance auth. RN notified.
--- NOTE | 2019-12-20 09:52 | PDOC ---
PROGRESS NOTES Assessment Problems Medical Problems: (1) Fall Status: Acute (2) Rhabdomyolysis Status: Acute Epilepsy Rhabdomyolysis, he has had this before. No CPK level back today Suspect dementia Alcoholism Positive sleep study for sleep apnea on 09/21/18, doubt he would be a good candidate for CPAP Plan No need to repeat MRI of the brain or electroencephalogram Levetiracetam Abstinence from alcohol Subjective No complaints Objective Vital Signs Date Time Temp Pulse Resp B/P (MAP) Pulse Ox O2 Delivery O2 Flow Rate FiO2 12/20/19 07:26 Room Air 12/20/19 07:00 98.7 83 16 119/66 (83) 98 98.7 Intake and Output 12/20/19 07:00 Intake Total 4230 ml Output Total 400 ml Balance 3830 ml Intake Oral 630 ml IV Total 1800 ml Other 1800 ml Output Urine Total 400 ml # Voids 1 PHYSICAL EXAM Alert. Oriented to place and person, does not know date. PERRL. EOMI. CN: no focal findings. Muscle tone: normal. Muscle strength: 4/5 DTR: 2+ Plantar reflex: flexor Gait: not examined in bed. Sensory exam: no abnormal findings. No cerebellar signs elicited. Review of Relevant I have reviewed the following items adwoa (where applicable) has been applied. Labs Laboratory Tests Test 12/18/19 15:55 12/18/19 19:50 12/18/19 19:59 12/19/19 07:35 Urine Collection Type U cath Urine Color Carolin Urine Clarity Clear Urine pH 5.5 (<5.0-8.0) Urine Specific Barnard >=1.030 (1.000-1.030) Urine Protein 30 mg/dL (NEG-TRACE) Urine Glucose (UA) Negative mg/dL (NEG) Urine Ketones (Stick) >=80 mg/dL (NEG) Urine Blood Negative (NEG) Urine Nitrite Negative (NEG) Urine Bilirubin Large (NEG) Urine Urobilinogen Dipstick 1.0 mg/dL (0.2 mg/dL) Urine Leukocyte Esterase Negative (NEG) Urine RBC 0 /HPF (0-2) Urine WBC Rare /HPF (0-4) Urine Squamous Epithelial Cells Occ /LPF Urine Amorphous Sediment Present /HPF Urine Bacteria 0 /HPF (0-FEW) Urine Hyaline Casts Occasional /HPF Urine Granular Casts Few /HPF Urine Mucus Mod /LPF White Blood Count 8.9 x10^3/uL (4.0-11.0) Red Blood Count 5.25 x10^6/uL (4.30-5.70) Hemoglobin 15.3 g/dL (13.0-17.5) Hematocrit 44.0 % (39.0-53.0) Mean Corpuscular Volume 84 fL (79-100) Mean Corpuscular Hemoglobin 29 pg (25-35) Mean Corpuscular Hemoglobin Concent 35 g/dL (31-37) Red Cell Distribution Width 16.2 % (11.5-14.5) Platelet Count 186 x10^3/uL (140-400) Neutrophils (%) (Auto) 73 % (31-73) Lymphocytes (%) (Auto) 7 % (24-48) Monocytes (%) (Auto) 20 % (0-9) Eosinophils (%) (Auto) 0 % (0-3) Basophils (%) (Auto) 0 % (0-3) Neutrophils # (Auto) 6.5 x10^3/uL (1.8-7.7) Lymphocytes # (Auto) 0.6 x10^3/uL (1.0-4.8) Monocytes # (Auto) 1.8 x10^3/uL (0.0-1.1) Eosinophils # (Auto) 0.0 x10^3/uL (0.0-0.7) Basophils # (Auto) 0.0 x10^3/uL (0.0-0.2) Segmented Neutrophils % 69 % (35-66) Lymphocytes % 10 % (24-48) Monocytes % 20 % (0-10) Eosinophils % 1 % (0-5) Platelet Estimate Adequate (ADEQUATE) Large Platelets Occ Target Cells Few Schistocytes Occ Sodium Level 142 mmol/L (136-145) 143 mmol/L (136-145) Potassium Level 4.0 mmol/L (3.5-5.1) 3.9 mmol/L (3.5-5.1) Chloride Level 105 mmol/L (98-107) 107 mmol/L (98-107) Carbon Dioxide Level 22 mmol/L (21-32) 28 mmol/L (21-32) Anion Gap 15 (6-14) 8 (6-14) Blood Urea Nitrogen 23 mg/dL (8-26) 19 mg/dL (8-26) Creatinine 0.9 mg/dL (0.7-1.3) 1.0 mg/dL (0.7-1.3) Estimated GFR (Cockcroft-Gault) 97.0 85.9 BUN/Creatinine Ratio 26 (6-20) Glucose Level 87 mg/dL (70-99) 122 mg/dL (70-99) Lactic Acid Level 1.1 mmol/L (0.4-2.0) Calcium Level 8.1 mg/dL (8.5-10.1) 8.4 mg/dL (8.5-10.1) Magnesium Level 1.9 mg/dL (1.8-2.4) Total Bilirubin 0.6 mg/dL (0.2-1.0) Aspartate Amino Transf (AST/SGOT) 80 U/L (15-37) Alanine Aminotransferase (ALT/SGPT) 28 U/L (16-63) Alkaline Phosphatase 56 U/L (46-116) Creatine Kinase 2486 U/L (39-308) 2425 U/L (39-308) Troponin I Quantitative < 0.017 ng/mL (0.000-0.055) Total Protein 6.6 g/dL (6.4-8.2) Albumin 2.6 g/dL (3.4-5.0) Albumin/Globulin Ratio 0.7 (1.0-1.7) O2 Saturation 97 % (92-99) Arterial Blood pH 7.41 (7.35-7.45) Arterial Blood pCO2 at Patient Temp 31 mmHg (35-46) Arterial Blood pO2 at Patient Temp 89 mmHg (65-108) Arterial Blood HCO3 19 mmol/L (21-28) Arterial Blood Base Excess -4 mmol/L (-3-3) Oxyhemoglobin 95.4 % Methemoglobin 0.6 % (0.0-1.9) Carbon Monoxide, Quantitative 0.5 % (0.0-1.9) FiO2 21 Microbiology 12/18/19 Blood Culture - Preliminary, Resulted NO GROWTH AFTER 1 DAY Medications Current Medications Sodium Chloride 1,000 ml @ 1,000 mls/hr 1X ONCE IV Last administered on 12/18/19at 15:37; Start 12/18/19 at 14:15; Stop 12/18/19 at 15:14; Status DC Sodium Chloride 1,000 ml @ 1,000 mls/hr 1X ONCE IV Last administered on 12/18/19at 20:06; Start 12/18/19 at 17:30; Stop 12/18/19 at 18:29; Status DC Sodium Chloride 1,000 ml @ 1,000 mls/hr 1X ONCE IV Last administered on 12/18/19at 17:55; Start 12/18/19 at 17:30; Stop 12/18/19 at 18:29; Status DC Ondansetron HCl (Zofran) 4 mg PRN Q4HRS PRN IV NAUSEA/VOMITING 1ST CHOICE; Start 12/18/19 at 23:45 Acetaminophen (Tylenol) 650 mg PRN Q4HRS PRN PO TEMP OVER 100.4F; Start 12/18/19 at 23:45 Enoxaparin Sodium (Lovenox 40mg Syringe) 40 mg QHS SQ Last administered on 12/19/19at 20:43; Start 12/18/19 at 23:45 Levetiracetam (Keppra) 750 mg BID PO Last administered on 12/20/19at 08:52; Start 12/19/19 at 00:00 Aspirin (Vicente Aspirin) 325 mg PRN BID PRN PO MILD PAIN 1-3; Start 12/19/19 at 00:00 Sodium Chloride 1,000 ml @ 75 mls/hr 1X ONCE IV Last administered on 12/19/19at 00:05; Start 12/19/19 at 00:30; Stop 12/19/19 at 13:51; Status DC Sodium Chloride 1,000 ml @ 150 mls/hr Q6H40M IV Last administered on 12/19/19at 22:20; Start 12/19/19 at 08:42 Multivitamins (Thera M Plus) 1 tab DAILY PO Last administered on 12/20/19at 08:52; Start 12/20/19 at 09:00 Ascorbic Acid (Vitamin C) 500 mg DAILY PO Last administered on 12/20/19at 08:52; Start 12/20/19 at 09:00 Active Scripts Active Reported Tylenol (Acetaminophen) 325 Mg Tablet 650 Mg PO Q6HRS Keppra (Levetiracetam) 750 Mg Tablet 750 Mg PO BID Vitals/I & O Vital Sign - Last 24 Hours 12/19/19 12/19/19 12/19/19 12/19/19 11:00 15:00 19:00 19:45 Temp 98.0 98.9 97.6 98.0 98.9 97.6 Pulse 66 78 86 Resp 16 18 20 B/P (MAP) 120/58 (78) 110/60 (77) 120/60 (80) Pulse Ox 98 98 97 O2 Delivery Room Air Room Air Room Air Room Air 12/19/19 12/20/19 12/20/19 12/20/19 23:00 03:00 07:00 07:26 Temp 98.3 98.4 98.7 98.3 98.4 98.7 Pulse 84 84 83 Resp 20 16 B/P (MAP) 124/72 (89) 114/68 (83) 119/66 (83) Pulse Ox 96 97 98 O2 Delivery Room Air Room Air Room Air Room Air Intake and Output 12/19/19 12/19/19 12/20/19 15:00 23:00 07:00 Intake Total 390 ml 3840 ml Output Total 400 ml Balance 390 ml 3440 ml Justicifation of Admission Dx: Justifications for Admission: Justification of Admission Dx: Yes Acute Renal Failure: 75% Reduction in GFR Altered Mental Status: Altered Mental Status CHRISTIAN BALL MD Dec 20, 2019 09:52
--- NOTE | 2019-12-20 10:42 | PDOC ---
Infectious Disease Note Vital Sign Vital Signs Vital Signs Date Time Temp Pulse Resp B/P (MAP) Pulse Ox O2 Delivery O2 Flow Rate FiO2 12/20/19 07:26 Room Air 12/20/19 07:00 98.7 83 16 119/66 (83) 98 98.7 Labs Micro Microbiology 12/18/19 Blood Culture - Final, Complete Objective Assessment GNR bacteremia 12/17 - POA Epilepsy Multiple wounds Rhabdo Dementia Plan Plan of Care Dose Cefepime F/u labs and cults D/w nursing Thank you # [id number] NANDO VILLARREAL MD Dec 20, 2019 10:42
[2019-12-20 11:00] VITALS: BP 121/68
[2019-12-20] MEDS: CEFEPIME HCL IV Push 1 GM VIAL. IVP SCH ×2 (11:18→21:26)
--- NOTE | 2019-12-20 12:41 | CONS ---
DATE OF CONSULTATION: PATIENT'S ROOM: 404. REQUESTING PHYSICIAN: Dr. Jordan. REASON FOR CONSULTATION: Positive blood cultures, Gram-negative rods, 05/06. HISTORY OF PRESENT ILLNESS: The patient is an 84-year-old gentleman who presented to [facility] by EMS after falling at home. According to the ER note, he got tangled up and fell down and did not recall hitting his head, but states that he was lying there for approximately 2 days and he was brought in on 12/18/2019. He has been afebrile since arrival, white blood cell count was 8.9. He did have a creatine kinase of 2486, although his creatinine has remained normal. Urinalysis was not consistent with a urinary tract infection. Chest x-ray had persistent widened mediastinum appears to be chronic. CT scan of the head showed no acute intracranial process. Blood cultures were obtained. He has not received any antimicrobials. A Amrk was placed. Blood culture turned positive today for 05/06 for Gram-negative rods, hence I have been consulted. Currently, the patient is sitting in the chair, states he feels well. He denies any fevers or sweats. He says he has been a little cold at times, but attributes that to the temperature in the room. He has no headaches, sore throat, cough. No chest pain. Denies any constipation, diarrhea and again he has a Mark in place, but he is somewhat of a questionable historian, although very pleasant. PAST MEDICAL HISTORY: Positive for TIAs, history of head injuries, history of obstructive sleep apnea, seizures, rhabdomyolysis, gastroesophageal reflux disease, anemia, alcohol addiction, urinary incontinence; Proteus urinary tract infection, resistant to Cipro, nitrofurantoin, tetracycline and intermediate to levofloxacin. PAST SURGICAL HISTORY: Positive for left total hip replacement and cervical fracture. REVIEW OF SYSTEMS: Otherwise negative. ALLERGIES: No known drug allergies. SOCIAL HISTORY: He has a history of alcohol abuse. No street drugs or tobacco. He is retired. FAMILY HISTORY: Noncontributory. CURRENT MEDICATIONS: Include vitamin C, aspirin, Lovenox, Keppra, Zofran. PHYSICAL EXAMINATION: VITAL SIGNS: He is afebrile, temperature 97, pulse 83, respirations 16, blood pressure 119/66, satting 98% on room air. CONSTITUTIONAL: He is sitting upright in the chair. He is in no acute distress. He is pleasant. HEENT: He has got normal conjunctivae. Oral cavity, pharynx is clear. He has poor dentition. NECK: Supple, no JVD. He has got well-healed scar in the back. LUNGS: Decreased in bases. HEART: S1, S2. ABDOMEN: Soft. No guarding, no rebound. GENITOURINARY: Mark is in place. EXTREMITIES: Without clubbing, cyanosis. He has some trace edema. He has got some superficial wounds on the sacral area, also has a blister of his left knee and deep tissue injury to his left heel, but no gross signs of any infection. NEUROLOGIC: He answers questions, but is confused, moves all extremities. PSYCHIATRIC: Affect is very pleasant. LABORATORY DATA: White count 8.9, hemoglobin 15.3, platelets of 186, neutrophils 73, segs were 69, lymphs were 10 , monos were 20. Creatinine of 1, glucose of 122. Creatinine kinase repeat yesterday was 2425. Urinalysis is not consistent with urinary tract infection. Blood cultures are positive for Gram-negative rods as mentioned above. IMPRESSION: 1. Gram-negative bacteremia 12/12/2019, present on admission. 2. Epilepsy. 3. Multiple wounds. 4. Rhabdomyolysis 5. Dementia. RECOMMENDATIONS: We will dose cefepime 1 g q.12h, given history of previous Proteus and more potential resistance with exposure to health care system. Follow up labs in the morning as well as cultures. This was discussed with nursing. Thank you for allowing me to participate in the patient's care. If you have any questions, please do not hesitate to contact me. NANDO VILLARREAL MD DR: ALLEN/hawa JOB#: [id number] / [id number]
--- NOTE | 2019-12-20 13:50 | CARD ---
MR#: [id number] Date of Study: 12/20/2019 Ordering Physician: CURTIS KAT, Referring Physician: CURTIS KAT, Tech: Mary Atkinson RDCS APPROVED REPORT EXAM: Two-dimensional and M-mode echocardiogram with Doppler and color Doppler. Other Information Quality : Good INDICATION Peripheral Edema 2D DIMENSIONS RVDd2.4 (2.9-3.5cm)Left Atrium(2D)2.3 (1.6-4.0cm) IVSd0.9 (0.7-1.1cm)Aortic Root(2D)3.6 (2.0-3.7cm) LVDd4.3 (3.9-5.9cm)LVOT Diameter2.1 (1.8-2.4cm) PWd1.0 (0.7-1.1cm)LVDs2.9 (2.5-4.0cm) FS (%) 33.3 %SV52.6 ml Aortic Valve AoV Peak Octavio.123.6cm/sAoV VTI19.9cm AO Peak GR.6.1mmHgLVOT VTI 19.91cm AO Mean GR.3mmHgAVA (VTI)3.30cm2 Mitral Valve MV E Vbwdhgpv52.0cm/sMV DECEL [id number] MV A Scobwllc632.1cm/sE/A Ratio0.9 TDI Lateral E' P. V6.95cm/sMedial E' P. V5.66cm/s E/Lateral E'13.1E/Medial E'16.1 Tricuspid Valve TR P. Hsgxbpgj578mt/sRAP BIWUKEPK5lfRm TR Peak Gr.61uiVnZWCP97pnVc Pulmonary Vein S1 Ptyxmplc23.7cm/sS2 Kvowiokq34.25cm/s D2 Cysjqdvd02.2cm/s LEFT VENTRICLE The left ventricle is normal size. There is normal left ventricular wall thickness. The left ventricu lar systolic function is normal and the ejection fraction is within normal range. The Ejection Fracti on is 55-60%. There is normal LV segmental wall motion. Transmitral Doppler flow pattern is Grade I-a bnormal relaxation pattern. RIGHT VENTRICLE The right ventricle is normal size. The right ventricular systolic function is normal. ATRIA The left atrium size is normal. The right atrium size is normal. The interatrial septum is intact wit h no evidence for an atrial septal defect or patent foramen ovale as noted on 2-D or Doppler imaging. AORTIC VALVE The aortic valve is calcified but opens well. Doppler and Color Flow revealed no significant aortic r egurgitation. There is no significant aortic valvular stenosis. MITRAL VALVE The mitral valve is calcified but opens well. There is no evidence of mitral valve prolapse. There is no mitral valve stenosis. Doppler and Color Flow revealed no mitral valve regurgitation noted. TRICUSPID VALVE The tricuspid valve is normal in structure and function. Doppler and Color Flow revealed trace tricus pid regurgitation. The PA pressure was estimated at 20 mmHg. There is no tricuspid valve stenosis. PULMONIC VALVE The pulmonic valve is not well visualized. Doppler and Color Flow revealed no pulmonic valvular regur gitation. There is no pulmonic valvular stenosis. GREAT VESSELS The aortic root is normal in size. The ascending aorta is not well seen. The IVC is normal in size an d collapses >50% with inspiration. PERICARDIAL EFFUSION There is no evidence of significant pericardial effusion. Critical Notification Critical Value: No <Conclusion> The left ventricle is normal size. The left ventricular systolic function is normal and the ejection fraction is within normal range. The Ejection Fraction is 55-60%. Doppler and Color Flow revealed no significant aortic regurgitation. There is no significant aortic valvular stenosis. Doppler and Color Flow revealed no mitral valve regurgitation noted. Doppler and Color Flow revealed trace tricuspid regurgitation. The PA pressure was estimated at 20 mmHg. Signed by : Jefferson Garcia MD Electronically Approved : 12/20/2019 13:49:38
[2019-12-20 15:00] VITALS: BP 109/58
--- NOTE | 2019-12-20 18:55 | PDOC ---
PROGRESS NOTES Date of Service: DATE: 12/20/19 TIME: 18:54 History of Present Illness History of Present Illness Patient seen and evaluated. He has no concerns today he is still interested in inpatient rehab. Vitals Vitals Vital Signs Date Time Temp Pulse Resp B/P (MAP) Pulse Ox O2 Delivery O2 Flow Rate FiO2 12/20/19 15:00 98.8 89 16 109/58 (75) 98 Room Air 98.8 Physical Exam General: Alert, Oriented X3 Lungs: Clear Abdomen: Normal bowel sounds, Soft, No tenderness Extremities: No clubbing, No cyanosis, Other (2+ bilateral edema) Skin: No rashes, No breakdown Review of Systems Review of Systems Weakness. All other review of systems negative. Assessment and Plan Assessmemt and Plan Problems Medical Problems: (1) Fall Status: Acute (2) Rhabdomyolysis Status: Acute Comment Review of Relevant I have reviewed the following items adwoa (where applicable) has been applied. Labs Laboratory Tests Test 12/18/19 19:50 12/18/19 19:59 12/19/19 07:35 12/19/19 09:40 White Blood Count 8.9 x10^3/uL (4.0-11.0) Red Blood Count 5.25 x10^6/uL (4.30-5.70) Hemoglobin 15.3 g/dL (13.0-17.5) Hematocrit 44.0 % (39.0-53.0) Mean Corpuscular Volume 84 fL (79-100) Mean Corpuscular Hemoglobin 29 pg (25-35) Mean Corpuscular Hemoglobin Concent 35 g/dL (31-37) Red Cell Distribution Width 16.2 % (11.5-14.5) Platelet Count 186 x10^3/uL (140-400) Neutrophils (%) (Auto) 73 % (31-73) Lymphocytes (%) (Auto) 7 % (24-48) Monocytes (%) (Auto) 20 % (0-9) Eosinophils (%) (Auto) 0 % (0-3) Basophils (%) (Auto) 0 % (0-3) Neutrophils # (Auto) 6.5 x10^3/uL (1.8-7.7) Lymphocytes # (Auto) 0.6 x10^3/uL (1.0-4.8) Monocytes # (Auto) 1.8 x10^3/uL (0.0-1.1) Eosinophils # (Auto) 0.0 x10^3/uL (0.0-0.7) Basophils # (Auto) 0.0 x10^3/uL (0.0-0.2) Segmented Neutrophils % 69 % (35-66) Lymphocytes % 10 % (24-48) Monocytes % 20 % (0-10) Eosinophils % 1 % (0-5) Platelet Estimate Adequate (ADEQUATE) Large Platelets Occ Target Cells Few Schistocytes Occ Sodium Level 142 mmol/L (136-145) 143 mmol/L (136-145) Potassium Level 4.0 mmol/L (3.5-5.1) 3.9 mmol/L (3.5-5.1) Chloride Level 105 mmol/L (98-107) 107 mmol/L (98-107) Carbon Dioxide Level 22 mmol/L (21-32) 28 mmol/L (21-32) Anion Gap 15 (6-14) 8 (6-14) Blood Urea Nitrogen 23 mg/dL (8-26) 19 mg/dL (8-26) Creatinine 0.9 mg/dL (0.7-1.3) 1.0 mg/dL (0.7-1.3) Estimated GFR (Cockcroft-Gault) 97.0 85.9 BUN/Creatinine Ratio 26 (6-20) Glucose Level 87 mg/dL (70-99) 122 mg/dL (70-99) Lactic Acid Level 1.1 mmol/L (0.4-2.0) Calcium Level 8.1 mg/dL (8.5-10.1) 8.4 mg/dL (8.5-10.1) Magnesium Level 1.9 mg/dL (1.8-2.4) Total Bilirubin 0.6 mg/dL (0.2-1.0) Aspartate Amino Transf (AST/SGOT) 80 U/L (15-37) Alanine Aminotransferase (ALT/SGPT) 28 U/L (16-63) Alkaline Phosphatase 56 U/L (46-116) Creatine Kinase 2486 U/L (39-308) 2425 U/L (39-308) Troponin I Quantitative < 0.017 ng/mL (0.000-0.055) Total Protein 6.6 g/dL (6.4-8.2) Albumin 2.6 g/dL (3.4-5.0) Albumin/Globulin Ratio 0.7 (1.0-1.7) O2 Saturation 97 % (92-99) Arterial Blood pH 7.41 (7.35-7.45) Arterial Blood pCO2 at Patient Temp 31 mmHg (35-46) Arterial Blood pO2 at Patient Temp 89 mmHg (65-108) Arterial Blood HCO3 19 mmol/L (21-28) Arterial Blood Base Excess -4 mmol/L (-3-3) Oxyhemoglobin 95.4 % Methemoglobin 0.6 % (0.0-1.9) Carbon Monoxide, Quantitative 0.5 % (0.0-1.9) FiO2 21 Coronavirus (PCR) Not detected (Not Detected) Microbiology 12/18/19 Blood Culture - Final, Complete Medications Current Medications Sodium Chloride 1,000 ml @ 1,000 mls/hr 1X ONCE IV Last administered on 12/18/19at 15:37; Start 12/18/19 at 14:15; Stop 12/18/19 at 15:14; Status DC Sodium Chloride 1,000 ml @ 1,000 mls/hr 1X ONCE IV Last administered on 12/18/19at 20:06; Start 12/18/19 at 17:30; Stop 12/18/19 at 18:29; Status DC Sodium Chloride 1,000 ml @ 1,000 mls/hr 1X ONCE IV Last administered on 12/18/19at 17:55; Start 12/18/19 at 17:30; Stop 12/18/19 at 18:29; Status DC Ondansetron HCl (Zofran) 4 mg PRN Q4HRS PRN IV NAUSEA/VOMITING 1ST CHOICE; Start 12/18/19 at 23:45 Acetaminophen (Tylenol) 650 mg PRN Q4HRS PRN PO TEMP OVER 100.4F; Start 12/18/19 at 23:45 Enoxaparin Sodium (Lovenox 40mg Syringe) 40 mg QHS SQ Last administered on 12/19/19at 20:43; Start 12/18/19 at 23:45 Levetiracetam (Keppra) 750 mg BID PO Last administered on 12/20/19at 08:52; Start 12/19/19 at 00:00 Aspirin (Vicente Aspirin) 325 mg PRN BID PRN PO MILD PAIN 1-3; Start 12/19/19 at 00:00 Sodium Chloride 1,000 ml @ 75 mls/hr 1X ONCE IV Last administered on 12/19/19at 00:05; Start 12/19/19 at 00:30; Stop 12/19/19 at 13:51; Status DC Sodium Chloride 1,000 ml @ 150 mls/hr Q6H40M IV Last administered on 12/20/19at 16:13; Start 12/19/19 at 08:42 Multivitamins (Thera M Plus) 1 tab DAILY PO Last administered on 12/20/19at 08:52; Start 12/20/19 at 09:00 Ascorbic Acid (Vitamin C) 500 mg DAILY PO Last administered on 12/20/19at 08:52; Start 12/20/19 at 09:00 Cefepime HCl (Maxipime) 1 gm Q12HR IVP Last administered on 12/20/19at 11:18; Start 12/20/19 at 10:30 Active Scripts Active Reported Tylenol (Acetaminophen) 325 Mg Tablet 650 Mg PO Q6HRS Keppra (Levetiracetam) 750 Mg Tablet 750 Mg PO BID Vitals/I & O Vital Sign - Last 24 Hours 12/19/19 12/19/19 12/19/19 12/20/19 19:00 19:45 23:00 03:00 Temp 97.6 98.3 98.4 97.6 98.3 98.4 Pulse 86 84 84 Resp B/P (MAP) 120/60 (80) 124/72 (89) 114/68 (83) Pulse Ox 97 96 97 O2 Delivery Room Air Room Air Room Air Room Air 12/20/19 12/20/19 12/20/19 12/20/19 07:00 07:26 11:00 15:00 Temp 98.7 98.8 98.8 98.7 98.8 98.8 Pulse 83 84 89 Resp 16 B/P (MAP) 119/66 (83) 121/68 (85) 109/58 (75) Pulse Ox 98 96 98 O2 Delivery Room Air Room Air Room Air Room Air Intake and Output 12/19/19 12/19/19 12/20/19 15:00 23:00 07:00 Intake Total 390 ml 3840 ml Output Total 400 ml Balance 390 ml 3440 ml Justicifation of Admission Dx: Justifications for Admission: Justification of Admission Dx: Yes Acute Renal Failure: 75% Reduction in GFR Altered Mental Status: Altered Mental Status CURTIS KAT MD Dec 20, 2019 18:54
[2019-12-20 19:00] VITALS: BP 124/63
[2019-12-20] MEDS: ENOXAPARIN 40 MG/0.4 ML SYRINGE. SQ SCH (21:33)
[2019-12-20 23:00] VITALS: BP 124/63
[2019-12-21 03:00] VITALS: BP 121/62
[2019-12-21 05:59] LABS: BASO % 0 % (0-3); EOS # 0.2 x10^3/uL (0.0-0.7); EOS % 3 % (0-3); HEMATOCRIT 37.7 % (39.0-53.0); LYMPH # 1.1 x10^3/uL (1.0-4.8); LYMPH % 16 % (24-48); MEAN CORPUSCULAR HEMOGLOBIN 30 pg (25-35); MEAN CORPUSCULAR HGB CONC 34 g/dL (31-37); MEAN CORPUSCULAR VOLUME 86 fL (79-100); MONO # 0.8 x10^3/uL (0.0-1.1); MONO % 11 % (0-9); NEUT # 4.8 x10^3/uL (1.8-7.7); NEUT % 70 % (31-73); PLATELET COUNT 172 x10^3/uL (140-400); RED BLOOD COUNT 4.41 x10^6/uL (4.30-5.70); RED CELL DISTRIBUTION WIDTH 16.1 % (11.5-14.5); WHITE BLOOD COUNT 6.9 x10^3/uL (4.0-11.0)
[2019-12-21 06:11] LABS: ALBUMIN/GLOBULIN RATIO 0.5 (1.0-1.7); CALCIUM 7.5 mg/dL (8.5-10.1); CREATININE 0.8 mg/dL (0.7-1.3); GFR 111.2; POTASSIUM 3.8 mmol/L (3.5-5.1); TOTAL BILIRUBIN 0.4 mg/dL (0.2-1.0); TOTAL PROTEIN 5.8 g/dL (6.4-8.2)
[2019-12-21] MEDS: IV NORMAL SALINE 1000ML BAG 1,000 ML IV SCH ×2 (06:27→15:42)
[2019-12-21 07:00] VITALS: BP 128/65
--- NOTE | 2019-12-21 09:37 | NUR ---
SW following. Plan for pt to discharge to [facility] today (COVID result negative). SW awaiting discharge paperwork. Pt notified, choice of vendor form completed. RN notified.
[2019-12-21] MEDS: CEFEPIME HCL IV Push 1 GM VIAL. IVP SCH ×2 (10:07→21:26)
[2019-12-21] MEDS: ASCORBIC ACID 500 MG TABLET PO SCH (10:07)
[2019-12-21] MEDS: MULTIVITAMIN with MINERAL TABLET. PO SCH (10:08)
[2019-12-21] MEDS: levETIRAcetam 250 MG TABLET PO SCH ×2 (10:08→21:25)
--- NOTE | 2019-12-21 10:41 | PDOC ---
PROGRESS NOTES Date of Service: DATE: 12/21/19 TIME: 10:37 History of Present Illness History of Present Illness Patient seen and evaluated. States he is feeling okay. Ready to pursue in patient rehab. Vitals Vitals Vital Signs Date Time Temp Pulse Resp B/P (MAP) Pulse Ox O2 Delivery O2 Flow Rate FiO2 12/21/19 07:00 98.0 86 18 128/65 (86) 97 Room Air 98.0 Physical Exam General: Alert, Oriented X3 Lungs: Clear Abdomen: Normal bowel sounds, Soft, No tenderness Extremities: No clubbing, No cyanosis, Other (2+ bilateral edema) Skin: No rashes, No breakdown Labs LABS Laboratory Tests Test 12/21/19 04:20 White Blood Count 6.9 x10^3/uL (4.0-11.0) Red Blood Count 4.41 x10^6/uL (4.30-5.70) Hemoglobin 13.0 g/dL (13.0-17.5) Hematocrit 37.7 % (39.0-53.0) Mean Corpuscular Volume 86 fL (79-100) Mean Corpuscular Hemoglobin 30 pg (25-35) Mean Corpuscular Hemoglobin Concent 34 g/dL (31-37) Red Cell Distribution Width 16.1 % (11.5-14.5) Platelet Count 172 x10^3/uL (140-400) Neutrophils (%) (Auto) 70 % (31-73) Lymphocytes (%) (Auto) 16 % (24-48) Monocytes (%) (Auto) 11 % (0-9) Eosinophils (%) (Auto) 3 % (0-3) Basophils (%) (Auto) 0 % (0-3) Neutrophils # (Auto) 4.8 x10^3/uL (1.8-7.7) Lymphocytes # (Auto) 1.1 x10^3/uL (1.0-4.8) Monocytes # (Auto) 0.8 x10^3/uL (0.0-1.1) Eosinophils # (Auto) 0.2 x10^3/uL (0.0-0.7) Basophils # (Auto) 0.0 x10^3/uL (0.0-0.2) Sodium Level 142 mmol/L (136-145) Potassium Level 3.8 mmol/L (3.5-5.1) Chloride Level 108 mmol/L (98-107) Carbon Dioxide Level 25 mmol/L (21-32) Anion Gap 9 (6-14) Blood Urea Nitrogen 16 mg/dL (8-26) Creatinine 0.8 mg/dL (0.7-1.3) Estimated GFR (Cockcroft-Gault) 111.2 BUN/Creatinine Ratio 20 (6-20) Glucose Level 91 mg/dL (70-99) Calcium Level 7.5 mg/dL (8.5-10.1) Total Bilirubin 0.4 mg/dL (0.2-1.0) Aspartate Amino Transf (AST/SGOT) 35 U/L (15-37) Alanine Aminotransferase (ALT/SGPT) 30 U/L (16-63) Alkaline Phosphatase 59 U/L (46-116) Creatine Kinase 430 U/L (39-308) Total Protein 5.8 g/dL (6.4-8.2) Albumin 2.0 g/dL (3.4-5.0) Albumin/Globulin Ratio 0.5 (1.0-1.7) Review of Systems Review of Systems Weakness. Denies fevers, denies chills, denies chest pain, denies shortness of breath. Assessment and Plan Assessmemt and Plan Problems Medical Problems: (1) Fall Status: Acute (2) Rhabdomyolysis Status: Acute, improving (3) Bacteremia Status: Acute (4) Severe Malnutrition Status: Acute on chronic Comment Review of Relevant I have reviewed the following items adwoa (where applicable) has been applied. Labs Laboratory Tests Test 12/21/19 04:20 White Blood Count 6.9 x10^3/uL (4.0-11.0) Red Blood Count 4.41 x10^6/uL (4.30-5.70) Hemoglobin 13.0 g/dL (13.0-17.5) Hematocrit 37.7 % (39.0-53.0) Mean Corpuscular Volume 86 fL (79-100) Mean Corpuscular Hemoglobin 30 pg (25-35) Mean Corpuscular Hemoglobin Concent 34 g/dL (31-37) Red Cell Distribution Width 16.1 % (11.5-14.5) Platelet Count 172 x10^3/uL (140-400) Neutrophils (%) (Auto) 70 % (31-73) Lymphocytes (%) (Auto) 16 % (24-48) Monocytes (%) (Auto) 11 % (0-9) Eosinophils (%) (Auto) 3 % (0-3) Basophils (%) (Auto) 0 % (0-3) Neutrophils # (Auto) 4.8 x10^3/uL (1.8-7.7) Lymphocytes # (Auto) 1.1 x10^3/uL (1.0-4.8) Monocytes # (Auto) 0.8 x10^3/uL (0.0-1.1) Eosinophils # (Auto) 0.2 x10^3/uL (0.0-0.7) Basophils # (Auto) 0.0 x10^3/uL (0.0-0.2) Sodium Level 142 mmol/L (136-145) Potassium Level 3.8 mmol/L (3.5-5.1) Chloride Level 108 mmol/L (98-107) Carbon Dioxide Level 25 mmol/L (21-32) Anion Gap 9 (6-14) Blood Urea Nitrogen 16 mg/dL (8-26) Creatinine 0.8 mg/dL (0.7-1.3) Estimated GFR (Cockcroft-Gault) 111.2 BUN/Creatinine Ratio 20 (6-20) Glucose Level 91 mg/dL (70-99) Calcium Level 7.5 mg/dL (8.5-10.1) Total Bilirubin 0.4 mg/dL (0.2-1.0) Aspartate Amino Transf (AST/SGOT) 35 U/L (15-37) Alanine Aminotransferase (ALT/SGPT) 30 U/L (16-63) Alkaline Phosphatase 59 U/L (46-116) Creatine Kinase 430 U/L (39-308) Total Protein 5.8 g/dL (6.4-8.2) Albumin 2.0 g/dL (3.4-5.0) Albumin/Globulin Ratio 0.5 (1.0-1.7) Laboratory Tests Test 12/21/19 04:20 White Blood Count 6.9 x10^3/uL (4.0-11.0) Red Blood Count 4.41 x10^6/uL (4.30-5.70) Hemoglobin 13.0 g/dL (13.0-17.5) Hematocrit 37.7 % (39.0-53.0) Mean Corpuscular Volume 86 fL (79-100) Mean Corpuscular Hemoglobin 30 pg (25-35) Mean Corpuscular Hemoglobin Concent 34 g/dL (31-37) Red Cell Distribution Width 16.1 % (11.5-14.5) Platelet Count 172 x10^3/uL (140-400) Neutrophils (%) (Auto) 70 % (31-73) Lymphocytes (%) (Auto) 16 % (24-48) Monocytes (%) (Auto) 11 % (0-9) Eosinophils (%) (Auto) 3 % (0-3) Basophils (%) (Auto) 0 % (0-3) Neutrophils # (Auto) 4.8 x10^3/uL (1.8-7.7) Lymphocytes # (Auto) 1.1 x10^3/uL (1.0-4.8) Monocytes # (Auto) 0.8 x10^3/uL (0.0-1.1) Eosinophils # (Auto) 0.2 x10^3/uL (0.0-0.7) Basophils # (Auto) 0.0 x10^3/uL (0.0-0.2) Sodium Level 142 mmol/L (136-145) Potassium Level 3.8 mmol/L (3.5-5.1) Chloride Level 108 mmol/L (98-107) Carbon Dioxide Level 25 mmol/L (21-32) Anion Gap 9 (6-14) Blood Urea Nitrogen 16 mg/dL (8-26) Creatinine 0.8 mg/dL (0.7-1.3) Estimated GFR (Cockcroft-Gault) 111.2 BUN/Creatinine Ratio 20 (6-20) Glucose Level 91 mg/dL (70-99) Calcium Level 7.5 mg/dL (8.5-10.1) Total Bilirubin 0.4 mg/dL (0.2-1.0) Aspartate Amino Transf (AST/SGOT) 35 U/L (15-37) Alanine Aminotransferase (ALT/SGPT) 30 U/L (16-63) Alkaline Phosphatase 59 U/L (46-116) Creatine Kinase 430 U/L (39-308) Total Protein 5.8 g/dL (6.4-8.2) Albumin 2.0 g/dL (3.4-5.0) Albumin/Globulin Ratio 0.5 (1.0-1.7) Microbiology 12/18/19 Blood Culture - Final, Complete Medications Current Medications Sodium Chloride 1,000 ml @ 1,000 mls/hr 1X ONCE IV Last administered on 12/18/19at 15:37; Start 12/18/19 at 14:15; Stop 12/18/19 at 15:14; Status DC Sodium Chloride 1,000 ml @ 1,000 mls/hr 1X ONCE IV Last administered on 12/18/19at 20:06; Start 12/18/19 at 17:30; Stop 12/18/19 at 18:29; Status DC Sodium Chloride 1,000 ml @ 1,000 mls/hr 1X ONCE IV Last administered on 12/18/19at 17:55; Start 12/18/19 at 17:30; Stop 12/18/19 at 18:29; Status DC Ondansetron HCl (Zofran) 4 mg PRN Q4HRS PRN IV NAUSEA/VOMITING 1ST CHOICE; Start 12/18/19 at 23:45 Acetaminophen (Tylenol) 650 mg PRN Q4HRS PRN PO TEMP OVER 100.4F; Start 12/18/19 at 23:45 Enoxaparin Sodium (Lovenox 40mg Syringe) 40 mg QHS SQ Last administered on 12/20/19at 21:33; Start 12/18/19 at 23:45 Levetiracetam (Keppra) 750 mg BID PO Last administered on 12/21/19at 10:08; Start 12/19/19 at 00:00 Aspirin (Vicente Aspirin) 325 mg PRN BID PRN PO MILD PAIN 1-3; Start 12/19/19 at 00:00 Sodium Chloride 1,000 ml @ 75 mls/hr 1X ONCE IV Last administered on 12/19/19at 00:05; Start 12/19/19 at 00:30; Stop 12/19/19 at 13:51; Status DC Sodium Chloride 1,000 ml @ 150 mls/hr Q6H40M IV Last administered on 12/21/19at 06:27; Start 12/19/19 at 08:42 Multivitamins (Thera M Plus) 1 tab DAILY PO Last administered on 12/21/19at 10:08; Start 12/20/19 at 09:00 Ascorbic Acid (Vitamin C) 500 mg DAILY PO Last administered on 12/21/19at 10:07; Start 12/20/19 at 09:00 Cefepime HCl (Maxipime) 1 gm Q12HR IVP Last administered on 12/21/19at 10:07; Start 12/20/19 at 10:30 Lactobacillus Rhamnosus (Culturelle) 1 cap BID PO ; Start 12/21/19 at 21:00 Active Scripts Active Reported Tylenol (Acetaminophen) 325 Mg Tablet 650 Mg PO Q6HRS Keppra (Levetiracetam) 750 Mg Tablet 750 Mg PO BID Vitals/I & O Vital Sign - Last 24 Hours 12/20/19 12/20/19 12/20/19 12/20/19 11:00 15:00 19:00 19:40 Temp 98.8 98.8 98.6 98.8 98.8 98.6 Pulse 84 89 92 Resp 18 16 16 B/P (MAP) 121/68 (85) 109/58 (75) 124/63 (83) Pulse Ox 96 98 97 O2 Delivery Room Air Room Air Room Air Room Air 12/20/19 12/21/19 12/21/19 23:00 03:00 07:00 Temp 98.6 99.3 98.0 98.6 99.3 98.0 Pulse 92 90 86 Resp 16 16 18 B/P (MAP) 124/63 (83) 121/62 (81) 128/65 (86) Pulse Ox 97 98 97 O2 Delivery Room Air Room Air Room Air Intake and Output 12/20/19 12/20/19 12/21/19 15:00 23:00 07:00 Intake Total 120 ml 3750 ml Output Total 850 ml Balance -730 ml 3750 ml Justicifation of Admission Dx: Justifications for Admission: Justification of Admission Dx: Yes Acute Renal Failure: 75% Reduction in GFR Altered Mental Status: Altered Mental Status CURTIS KAT MD Dec 21, 2019 10:40
[2019-12-21 11:00] VITALS: BP 130/66
--- NOTE | 2019-12-21 11:16 | PDOC ---
Infectious Disease Note Subjective Subjective Some back discomfort No F/C/S/N/V/D/SOA/rash Vital Sign Vital Signs Vital Signs Date Time Temp Pulse Resp B/P (MAP) Pulse Ox O2 Delivery O2 Flow Rate FiO2 12/21/19 11:00 98.9 92 18 130/66 (87) 96 Room Air 98.9 Physical Exam PHYSICAL EXAM CONSTITUTIONAL: He is sitting upright in the chair. He is in no acute distress. He is pleasant. HEENT: He has got normal conjunctivae. Oral cavity, pharynx is clear. He has poor dentition. NECK: Supple, no JVD. He has got well-healed scar in the back. LUNGS: Decreased in bases. HEART: S1, S2. ABDOMEN: Soft. No guarding, no rebound. GENITOURINARY: Mark is in place. EXTREMITIES: Without clubbing, cyanosis. He has some trace edema. He has got some superficial wounds on the sacral area, also has a blister of his left knee and deep tissue injury to his left heel, but no gross signs of any infection. NEUROLOGIC: He answers questions, but is confused, moves all extremities. PSYCHIATRIC: Affect is very pleasant. Labs Lab Laboratory Tests Test 12/21/19 04:20 White Blood Count 6.9 x10^3/uL (4.0-11.0) Red Blood Count 4.41 x10^6/uL (4.30-5.70) Hemoglobin 13.0 g/dL (13.0-17.5) Hematocrit 37.7 % (39.0-53.0) Mean Corpuscular Volume 86 fL (79-100) Mean Corpuscular Hemoglobin 30 pg (25-35) Mean Corpuscular Hemoglobin Concent 34 g/dL (31-37) Red Cell Distribution Width 16.1 % (11.5-14.5) Platelet Count 172 x10^3/uL (140-400) Neutrophils (%) (Auto) 70 % (31-73) Lymphocytes (%) (Auto) 16 % (24-48) Monocytes (%) (Auto) 11 % (0-9) Eosinophils (%) (Auto) 3 % (0-3) Basophils (%) (Auto) 0 % (0-3) Neutrophils # (Auto) 4.8 x10^3/uL (1.8-7.7) Lymphocytes # (Auto) 1.1 x10^3/uL (1.0-4.8) Monocytes # (Auto) 0.8 x10^3/uL (0.0-1.1) Eosinophils # (Auto) 0.2 x10^3/uL (0.0-0.7) Basophils # (Auto) 0.0 x10^3/uL (0.0-0.2) Sodium Level 142 mmol/L (136-145) Potassium Level 3.8 mmol/L (3.5-5.1) Chloride Level 108 mmol/L (98-107) Carbon Dioxide Level 25 mmol/L (21-32) Anion Gap 9 (6-14) Blood Urea Nitrogen 16 mg/dL (8-26) Creatinine 0.8 mg/dL (0.7-1.3) Estimated GFR (Cockcroft-Gault) 111.2 BUN/Creatinine Ratio 20 (6-20) Glucose Level 91 mg/dL (70-99) Calcium Level 7.5 mg/dL (8.5-10.1) Total Bilirubin 0.4 mg/dL (0.2-1.0) Aspartate Amino Transf (AST/SGOT) 35 U/L (15-37) Alanine Aminotransferase (ALT/SGPT) 30 U/L (16-63) Alkaline Phosphatase 59 U/L (46-116) Creatine Kinase 430 U/L (39-308) Total Protein 5.8 g/dL (6.4-8.2) Albumin 2.0 g/dL (3.4-5.0) Albumin/Globulin Ratio 0.5 (1.0-1.7) Micro Microbiology 12/18/19 Blood Culture - Final, Complete Objective Assessment Proteus bacteremia 12/17 - POA - per micro Epilepsy Multiple wounds Rhabdo - better Dementia Plan Plan of Care Cont Cefepime and f/u sensitivities F/u labs and cults D/w nursing NANDO VILLARREAL MD Dec 21, 2019 11:16
--- NOTE | 2019-12-21 13:37 | PDOC ---
PROGRESS NOTES Assessment Problems Medical Problems: (1) Fall Status: Acute (2) Rhabdomyolysis Status: Acute Epilepsy Rhabdomyolysis, he has had this before. CPK 450 today Suspect dementia Alcoholism Positive sleep study for sleep apnea on 09/21/18, doubt he would be a good candidate for CPAP Bacteremia, Proteus Plan No need to repeat MRI of the brain or electroencephalogram Levetiracetam Abstinence from alcohol Discharging to [facility] today Subjective No complaints Objective Vital Signs Date Time Temp Pulse Resp B/P (MAP) Pulse Ox O2 Delivery O2 Flow Rate FiO2 12/21/19 11:00 98.9 92 18 130/66 (87) 96 Room Air 98.9 Intake and Output 12/21/19 07:00 Intake Total 3870 ml Output Total 850 ml Balance 3020 ml Intake Oral 120 ml IV Total 1800 ml Other 1950 ml Output Urine Total 850 ml # Voids 1 PHYSICAL EXAM Alert. Oriented to place and person, does not know date. PERRL. EOMI. CN: no focal findings. Muscle tone: normal. Muscle strength: 4/5 DTR: 2+ Plantar reflex: flexor Gait: not examined in bed. Sensory exam: no abnormal findings. No cerebellar signs elicited. Review of Relevant I have reviewed the following items adwoa (where applicable) has been applied. Labs Laboratory Tests Test 12/21/19 04:20 White Blood Count 6.9 x10^3/uL (4.0-11.0) Red Blood Count 4.41 x10^6/uL (4.30-5.70) Hemoglobin 13.0 g/dL (13.0-17.5) Hematocrit 37.7 % (39.0-53.0) Mean Corpuscular Volume 86 fL (79-100) Mean Corpuscular Hemoglobin 30 pg (25-35) Mean Corpuscular Hemoglobin Concent 34 g/dL (31-37) Red Cell Distribution Width 16.1 % (11.5-14.5) Platelet Count 172 x10^3/uL (140-400) Neutrophils (%) (Auto) 70 % (31-73) Lymphocytes (%) (Auto) 16 % (24-48) Monocytes (%) (Auto) 11 % (0-9) Eosinophils (%) (Auto) 3 % (0-3) Basophils (%) (Auto) 0 % (0-3) Neutrophils # (Auto) 4.8 x10^3/uL (1.8-7.7) Lymphocytes # (Auto) 1.1 x10^3/uL (1.0-4.8) Monocytes # (Auto) 0.8 x10^3/uL (0.0-1.1) Eosinophils # (Auto) 0.2 x10^3/uL (0.0-0.7) Basophils # (Auto) 0.0 x10^3/uL (0.0-0.2) Sodium Level 142 mmol/L (136-145) Potassium Level 3.8 mmol/L (3.5-5.1) Chloride Level 108 mmol/L (98-107) Carbon Dioxide Level 25 mmol/L (21-32) Anion Gap 9 (6-14) Blood Urea Nitrogen 16 mg/dL (8-26) Creatinine 0.8 mg/dL (0.7-1.3) Estimated GFR (Cockcroft-Gault) 111.2 BUN/Creatinine Ratio 20 (6-20) Glucose Level 91 mg/dL (70-99) Calcium Level 7.5 mg/dL (8.5-10.1) Total Bilirubin 0.4 mg/dL (0.2-1.0) Aspartate Amino Transf (AST/SGOT) 35 U/L (15-37) Alanine Aminotransferase (ALT/SGPT) 30 U/L (16-63) Alkaline Phosphatase 59 U/L (46-116) Creatine Kinase 430 U/L (39-308) Total Protein 5.8 g/dL (6.4-8.2) Albumin 2.0 g/dL (3.4-5.0) Albumin/Globulin Ratio 0.5 (1.0-1.7) Laboratory Tests Test 12/21/19 04:20 White Blood Count 6.9 x10^3/uL (4.0-11.0) Red Blood Count 4.41 x10^6/uL (4.30-5.70) Hemoglobin 13.0 g/dL (13.0-17.5) Hematocrit 37.7 % (39.0-53.0) Mean Corpuscular Volume 86 fL (79-100) Mean Corpuscular Hemoglobin 30 pg (25-35) Mean Corpuscular Hemoglobin Concent 34 g/dL (31-37) Red Cell Distribution Width 16.1 % (11.5-14.5) Platelet Count 172 x10^3/uL (140-400) Neutrophils (%) (Auto) 70 % (31-73) Lymphocytes (%) (Auto) 16 % (24-48) Monocytes (%) (Auto) 11 % (0-9) Eosinophils (%) (Auto) 3 % (0-3) Basophils (%) (Auto) 0 % (0-3) Neutrophils # (Auto) 4.8 x10^3/uL (1.8-7.7) Lymphocytes # (Auto) 1.1 x10^3/uL (1.0-4.8) Monocytes # (Auto) 0.8 x10^3/uL (0.0-1.1) Eosinophils # (Auto) 0.2 x10^3/uL (0.0-0.7) Basophils # (Auto) 0.0 x10^3/uL (0.0-0.2) Sodium Level 142 mmol/L (136-145) Potassium Level 3.8 mmol/L (3.5-5.1) Chloride Level 108 mmol/L (98-107) Carbon Dioxide Level 25 mmol/L (21-32) Anion Gap 9 (6-14) Blood Urea Nitrogen 16 mg/dL (8-26) Creatinine 0.8 mg/dL (0.7-1.3) Estimated GFR (Cockcroft-Gault) 111.2 BUN/Creatinine Ratio 20 (6-20) Glucose Level 91 mg/dL (70-99) Calcium Level 7.5 mg/dL (8.5-10.1) Total Bilirubin 0.4 mg/dL (0.2-1.0) Aspartate Amino Transf (AST/SGOT) 35 U/L (15-37) Alanine Aminotransferase (ALT/SGPT) 30 U/L (16-63) Alkaline Phosphatase 59 U/L (46-116) Creatine Kinase 430 U/L (39-308) Total Protein 5.8 g/dL (6.4-8.2) Albumin 2.0 g/dL (3.4-5.0) Albumin/Globulin Ratio 0.5 (1.0-1.7) Microbiology 12/18/19 Blood Culture - Final, Complete Medications Current Medications Sodium Chloride 1,000 ml @ 1,000 mls/hr 1X ONCE IV Last administered on 12/18/19at 15:37; Start 12/18/19 at 14:15; Stop 12/18/19 at 15:14; Status DC Sodium Chloride 1,000 ml @ 1,000 mls/hr 1X ONCE IV Last administered on 12/18/19at 20:06; Start 12/18/19 at 17:30; Stop 12/18/19 at 18:29; Status DC Sodium Chloride 1,000 ml @ 1,000 mls/hr 1X ONCE IV Last administered on 12/18/19at 17:55; Start 12/18/19 at 17:30; Stop 12/18/19 at 18:29; Status DC Ondansetron HCl (Zofran) 4 mg PRN Q4HRS PRN IV NAUSEA/VOMITING 1ST CHOICE; Start 12/18/19 at 23:45 Acetaminophen (Tylenol) 650 mg PRN Q4HRS PRN PO TEMP OVER 100.4F; Start 12/18/19 at 23:45 Enoxaparin Sodium (Lovenox 40mg Syringe) 40 mg QHS SQ Last administered on 12/20/19at 21:33; Start 12/18/19 at 23:45 Levetiracetam (Keppra) 750 mg BID PO Last administered on 12/21/19at 10:08; Start 12/19/19 at 00:00 Aspirin (Vicente Aspirin) 325 mg PRN BID PRN PO MILD PAIN 1-3; Start 12/19/19 at 00:00 Sodium Chloride 1,000 ml @ 75 mls/hr 1X ONCE IV Last administered on 12/19/19at 00:05; Start 12/19/19 at 00:30; Stop 12/19/19 at 13:51; Status DC Sodium Chloride 1,000 ml @ 150 mls/hr Q6H40M IV Last administered on 12/21/19at 06:27; Start 12/19/19 at 08:42 Multivitamins (Thera M Plus) 1 tab DAILY PO Last administered on 12/21/19 10:08; Start 12/20/19 at 09:00 Ascorbic Acid (Vitamin C) 500 mg DAILY PO Last administered on 12/21/19at 10:07; Start 12/20/19 at 09:00 Cefepime HCl (Maxipime) 1 gm Q12HR IVP Last administered on 12/21/19at 10:07; Start 12/20/19 at 10:30 Lactobacillus Rhamnosus (Culturelle) 1 cap BID PO ; Start 12/21/19 at 21:00 Active Scripts Active Reported Tylenol (Acetaminophen) 325 Mg Tablet 650 Mg PO Q6HRS Keppra (Levetiracetam) 750 Mg Tablet 750 Mg PO BID Vitals/I & O Vital Sign - Last 24 Hours 12/20/19 12/20/19 12/20/19 12/20/19 15:00 19:00 19:40 23:00 Temp 98.8 98.6 98.6 98.8 98.6 98.6 Pulse 89 92 92 Resp 16 16 16 B/P (MAP) 109/58 (75) 124/63 (83) 124/63 (83) Pulse Ox 98 97 97 O2 Delivery Room Air Room Air Room Air Room Air 12/21/19 12/21/19 12/21/19 03:00 07:00 11:00 Temp 99.3 98.0 98.9 99.3 98.0 98.9 Pulse 90 86 92 Resp 16 18 18 B/P (MAP) 121/62 (81) 128/65 (86) 130/66 (87) Pulse Ox 98 97 96 O2 Delivery Room Air Room Air Room Air Intake and Output 12/20/19 12/20/19 12/21/19 15:00 23:00 07:00 Intake Total 120 ml 3750 ml Output Total 850 ml Balance -730 ml 3750 ml Justicifation of Admission Dx: Justifications for Admission: Justification of Admission Dx: Yes Acute Renal Failure: 75% Reduction in GFR Altered Mental Status: Altered Mental Status CHRISTIAN BALL MD Dec 21, 2019 13:37
[2019-12-21 15:00] VITALS: BP 121/61
[2019-12-21 19:44] VITALS: BP 128/68
[2019-12-21] MEDS: LACTOBACILLUS RHAMNOSUS GG 1 CAPSULE. PO SCH (21:25)
[2019-12-21] MEDS: ENOXAPARIN 40 MG/0.4 ML SYRINGE. SQ SCH (21:26)
[2019-12-21 23:26] VITALS: BP 134/72
[2019-12-22] MEDS: IV NORMAL SALINE 1000ML BAG 1,000 ML IV SCH ×4 (03:08→17:00)
[2019-12-22 03:18] VITALS: BP 126/67
[2019-12-22 07:00] VITALS: BP 118/67
[2019-12-22] MEDS: LACTOBACILLUS RHAMNOSUS GG 1 CAPSULE. PO SCH ×2 (07:56→20:54)
[2019-12-22] MEDS: levETIRAcetam 250 MG TABLET PO SCH ×2 (07:56→20:54)
[2019-12-22] MEDS: CEFEPIME HCL IV Push 1 GM VIAL. IVP SCH (07:56)
[2019-12-22] MEDS: ASCORBIC ACID 500 MG TABLET PO SCH (07:56)
[2019-12-22] MEDS: MULTIVITAMIN with MINERAL TABLET. PO SCH (07:56)
--- NOTE | 2019-12-22 08:58 | PDOC ---
PROGRESS NOTES Assessment Problems Medical Problems: (1) Fall Status: Acute (2) Rhabdomyolysis Status: Acute Epilepsy Rhabdomyolysis, he has had this before. Suspect dementia Alcoholism Positive sleep study for sleep apnea on 09/21/18, doubt he would be a good candidate for CPAP Bacteremia, Proteus Plan No need to repeat MRI of the brain or electroencephalogram Levetiracetam Abstinence from alcohol Discharging to [facility] Follow-up with neurology as needed Objective Vital Signs Date Time Temp Pulse Resp B/P (MAP) Pulse Ox O2 Delivery O2 Flow Rate FiO2 12/22/19 07:00 98.2 78 20 118/67 (84) Room Air 98.2 12/22/19 03:18 96 Intake and Output 12/22/19 07:00 Intake Total 500 ml Output Total 2100 ml Balance -1600 ml Intake Oral 500 ml Output Urine Total 2100 ml PHYSICAL EXAM Alert. Oriented to place and person, does not know date. PERRL. EOMI. CN: no focal findings. Muscle tone: normal. Muscle strength: 4/5 DTR: 2+ Plantar reflex: flexor Gait: not examined in bed. Sensory exam: no abnormal findings. No cerebellar signs elicited. Review of Relevant I have reviewed the following items adwoa (where applicable) has been applied. Labs Laboratory Tests Test 12/21/19 04:20 White Blood Count 6.9 x10^3/uL (4.0-11.0) Red Blood Count 4.41 x10^6/uL (4.30-5.70) Hemoglobin 13.0 g/dL (13.0-17.5) Hematocrit 37.7 % (39.0-53.0) Mean Corpuscular Volume 86 fL (79-100) Mean Corpuscular Hemoglobin 30 pg (25-35) Mean Corpuscular Hemoglobin Concent 34 g/dL (31-37) Red Cell Distribution Width 16.1 % (11.5-14.5) Platelet Count 172 x10^3/uL (140-400) Neutrophils (%) (Auto) 70 % (31-73) Lymphocytes (%) (Auto) 16 % (24-48) Monocytes (%) (Auto) 11 % (0-9) Eosinophils (%) (Auto) 3 % (0-3) Basophils (%) (Auto) 0 % (0-3) Neutrophils # (Auto) 4.8 x10^3/uL (1.8-7.7) Lymphocytes # (Auto) 1.1 x10^3/uL (1.0-4.8) Monocytes # (Auto) 0.8 x10^3/uL (0.0-1.1) Eosinophils # (Auto) 0.2 x10^3/uL (0.0-0.7) Basophils # (Auto) 0.0 x10^3/uL (0.0-0.2) Sodium Level 142 mmol/L (136-145) Potassium Level 3.8 mmol/L (3.5-5.1) Chloride Level 108 mmol/L (98-107) Carbon Dioxide Level 25 mmol/L (21-32) Anion Gap 9 (6-14) Blood Urea Nitrogen 16 mg/dL (8-26) Creatinine 0.8 mg/dL (0.7-1.3) Estimated GFR (Cockcroft-Gault) 111.2 BUN/Creatinine Ratio 20 (6-20) Glucose Level 91 mg/dL (70-99) Calcium Level 7.5 mg/dL (8.5-10.1) Total Bilirubin 0.4 mg/dL (0.2-1.0) Aspartate Amino Transf (AST/SGOT) 35 U/L (15-37) Alanine Aminotransferase (ALT/SGPT) 30 U/L (16-63) Alkaline Phosphatase 59 U/L (46-116) Creatine Kinase 430 U/L (39-308) Total Protein 5.8 g/dL (6.4-8.2) Albumin 2.0 g/dL (3.4-5.0) Albumin/Globulin Ratio 0.5 (1.0-1.7) Microbiology 12/18/19 Blood Culture - Final, Complete 12/18/19 Antimicrobic Susceptibility - Final, Complete Medications Current Medications Sodium Chloride 1,000 ml @ 1,000 mls/hr 1X ONCE IV Last administered on 12/18/19at 15:37; Start 12/18/19 at 14:15; Stop 12/18/19 at 15:14; Status DC Sodium Chloride 1,000 ml @ 1,000 mls/hr 1X ONCE IV Last administered on 12/18/19at 20:06; Start 12/18/19 at 17:30; Stop 12/18/19 at 18:29; Status DC Sodium Chloride 1,000 ml @ 1,000 mls/hr 1X ONCE IV Last administered on 12/18/19at 17:55; Start 12/18/19 at 17:30; Stop 12/18/19 at 18:29; Status DC Ondansetron HCl (Zofran) 4 mg PRN Q4HRS PRN IV NAUSEA/VOMITING 1ST CHOICE; Start 12/18/19 at 23:45 Acetaminophen (Tylenol) 650 mg PRN Q4HRS PRN PO TEMP OVER 100.4F Last administered on 12/22/19at 03:08; Start 12/18/19 at 23:45 Enoxaparin Sodium (Lovenox 40mg Syringe) 40 mg QHS SQ Last administered on 12/21/19at 21:26; Start 12/18/19 at 23:45 Levetiracetam (Keppra) 750 mg BID PO Last administered on 12/22/19at 07:56; Start 12/19/19 at 00:00 Aspirin (Vicente Aspirin) 325 mg PRN BID PRN PO MILD PAIN 1-3; Start 12/19/19 at 00:00 Sodium Chloride 1,000 ml @ 75 mls/hr 1X ONCE IV Last administered on 12/19/19at 00:05; Start 12/19/19 at 00:30; Stop 12/19/19 at 13:51; Status DC Sodium Chloride 1,000 ml @ 150 mls/hr Q6H40M IV Last administered on 12/22/19at 07:55; Start 12/19/19 at 08:42 Multivitamins (Thera M Plus) 1 tab DAILY PO Last administered on 12/22/19at 07:56; Start 12/20/19 at 09:00 Ascorbic Acid (Vitamin C) 500 mg DAILY PO Last administered on 12/22/19at 07:56; Start 12/20/19 at 09:00 Cefepime HCl (Maxipime) 1 gm Q12HR IVP Last administered on 12/22/19at 07:56; Start 12/20/19 at 10:30 Lactobacillus Rhamnosus (Culturelle) 1 cap BID PO Last administered on 12/22/19at 07:56; Start 12/21/19 at 21:00 Active Scripts Active Reported Tylenol (Acetaminophen) 325 Mg Tablet 650 Mg PO Q6HRS Keppra (Levetiracetam) 750 Mg Tablet 750 Mg PO BID Vitals/I & O Vital Sign - Last 24 Hours 12/21/19 12/21/19 12/21/19 12/21/19 11:00 15:00 19:44 20:00 Temp 98.9 98.7 99.8 98.9 98.7 99.8 Pulse 92 85 100 Resp 18 18 18 B/P (MAP) 130/66 (87) 121/61 (81) 128/68 (88) Pulse Ox 96 100 96 O2 Delivery Room Air Room Air Room Air Room Air 12/21/19 12/22/19 12/22/19 23:26 03:18 07:00 Temp 100.2 100.9 98.2 100.2 100.9 98.2 Pulse 98 109 78 Resp B/P (MAP) 134/72 (92) 126/67 (86) 118/67 (84) Pulse Ox 98 96 O2 Delivery Room Air Room Air Room Air Intake and Output 12/21/19 12/21/19 12/22/19 15:00 23:00 07:00 Intake Total 500 ml Output Total 2100 ml Balance 500 ml -2100 ml Justicifation of Admission Dx: Justifications for Admission: Justification of Admission Dx: Yes Acute Renal Failure: 75% Reduction in GFR Altered Mental Status: Altered Mental Status CHRISTIAN BALL MD Dec 22, 2019 08:58
--- NOTE | 2019-12-22 09:29 | NUR ---
SW following. Discussed with RN, pt accepted at [facility], awaiting ID to allow discharge. Sensitivities pending. SW will continue to follow.
--- NOTE | 2019-12-22 10:58 | PDOC ---
Infectious Disease Note Subjective Subjective Some back discomfort No F/C/S/N/V/D/SOA/rash ROS ROS o/w neg Vital Sign Vital Signs Vital Signs Date Time Temp Pulse Resp B/P (MAP) Pulse Ox O2 Delivery O2 Flow Rate FiO2 12/22/19 08:00 Room Air 12/22/19 07:00 98.2 78 20 118/67 (84) 98.2 12/22/19 03:18 96 Physical Exam PHYSICAL EXAM CONSTITUTIONAL: He is sitting upright in the chair. He is in no acute distress. He is pleasant. HEENT: He has got normal conjunctivae. Oral cavity, pharynx is clear. He has poor dentition. NECK: Supple, no JVD. He has got well-healed scar in the back. LUNGS: Decreased in bases. HEART: S1, S2. ABDOMEN: Soft. No guarding, no rebound. GENITOURINARY: Mark is in place. EXTREMITIES: Without clubbing, cyanosis. He has some increase discomfort and edema in RUE. He has some superficial wounds on the sacral area, also has a blister of his left knee and deep tissue injury to his left heel, but no gross signs of any infection. NEUROLOGIC: He answers questions, but is confused, moves all extremities. PSYCHIATRIC: Affect is very pleasant. Labs Micro BLOOD CULTURE LC Final Final GRAM NEGATIVE RODS FINAL ID= [PROTEUS VULGARIS GROUP] PROTEUS VULGARIS GROUP ANTIMICROBIAL SUSCEPTIBILITY Final Comment NEG INNA 56 PROTEUS VULGARIS GROUP ANTIBIOTIC RESULT INTERPRETATION AMPICILLIN/SULBACTAM <=4/2 S AMIKACIN <=16 S AMPICILLIN >16 R AMOXICILLIN/K CLAVULANATE <=8/4 S AZTREONAM <=4 S CEFTRIAXONE <=1 S CEFTAZIDIME 4 S CEFOTAXIME <=2 S CEFOXITIN <=8 S CIPROFLOXACIN <=0.25 S CEFEPIME <=2 S CEFUROXIME >16 R ERTAPENEM <=0.5 S GENTAMICIN <=2 S LEVOFLOXACIN <=0.5 S MEROPENEM <=1 S PIPERACILLIN/TAZOBACTAM <=8 S TRIMETHOPRIM/SULFAMETHOXAZOLE <=0.5/9.5 S TETRACYCLINE >8 R TOBRAMYCIN <=2 S Microbiology 12/18/19 Blood Culture - Final, Complete Objective Assessment Fever RUE swelling Proteus bacteremia 12/17 - POA - per micro Epilepsy Multiple wounds Rhabdo - better Dementia Plan Plan of Care Discont Cefepime and start Rocephin U/S RUE F/u labs in am and cults D/w nursing NANDO VILLARREAL MD Dec 22, 2019 10:58
[2019-12-22 11:00] VITALS: BP 116/55
[2019-12-22 11:04] LABS: BASO % 1 % (0-3); EOS # 0.3 x10^3/uL (0.0-0.7); EOS % 4 % (0-3); HEMATOCRIT 39.1 % (39.0-53.0); HEMOGLOBIN 13.5 g/dL (13.0-17.5); LYMPH % 17 % (24-48); MEAN CORPUSCULAR HEMOGLOBIN 29 pg (25-35); MEAN CORPUSCULAR HGB CONC 34 g/dL (31-37); MEAN CORPUSCULAR VOLUME 85 fL (79-100); MONO # 0.7 x10^3/uL (0.0-1.1); MONO % 11 % (0-9); NEUT # 4.3 x10^3/uL (1.8-7.7); NEUT % 68 % (31-73); PLATELET COUNT 212 x10^3/uL (140-400); RED BLOOD COUNT 4.61 x10^6/uL (4.30-5.70); RED CELL DISTRIBUTION WIDTH 15.8 % (11.5-14.5); WHITE BLOOD COUNT 6.3 x10^3/uL (4.0-11.0)
[2019-12-22 11:05] LABS: CREATININE 1.1 mg/dL (0.7-1.3); POTASSIUM 3.4 mmol/L (3.5-5.1)
--- NOTE | 2019-12-22 11:25 | PDOC ---
PROGRESS NOTES Date of Service: DATE: 12/22/19 TIME: 11:19 Chief Complaint Chief Complaint fall History of Present Illness History of Present Illness Patient seen and evaluated. No complaints today. Inpatient rehab remains the plan, pending blood culture sensitivities Vitals Vitals Vital Signs Date Time Temp Pulse Resp B/P (MAP) Pulse Ox O2 Delivery O2 Flow Rate FiO2 12/22/19 08:00 Room Air 12/22/19 07:00 98.2 78 20 118/67 (84) 98.2 12/22/19 03:18 96 Physical Exam Physical Exam CONSTITUTIONAL: He is sitting upright in the chair. He is in no acute distress. He is pleasant. HEENT: He has got normal conjunctivae. Oral cavity, pharynx is clear. He has poor dentition. NECK: Supple, no JVD. He has got well-healed scar in the back. LUNGS: Decreased in bases. HEART: S1, S2. ABDOMEN: Soft. No guarding, no rebound. GENITOURINARY: Mark is in place. EXTREMITIES: Without clubbing, cyanosis. He has some trace edema. He has got some superficial wounds on the sacral area, also has a blister of his left knee and deep tissue injury to his left heel, but no gross signs of any infection. NEUROLOGIC: He answers questions, but is confused, moves all extremities. PSYCHIATRIC: Affect is very pleasant. General: Alert, Oriented X3 Heart: Regular rate, Normal S1, Normal S2 Lungs: Clear Abdomen: Normal bowel sounds, Soft, No tenderness Extremities: No clubbing, No cyanosis, Other (2+ bilateral edema) Skin: No rashes, No breakdown Labs LABS Laboratory Tests Test 12/22/19 10:28 White Blood Count 6.3 x10^3/uL (4.0-11.0) Red Blood Count 4.61 x10^6/uL (4.30-5.70) Hemoglobin 13.5 g/dL (13.0-17.5) Hematocrit 39.1 % (39.0-53.0) Mean Corpuscular Volume 85 fL (79-100) Mean Corpuscular Hemoglobin 29 pg (25-35) Mean Corpuscular Hemoglobin Concent 34 g/dL (31-37) Red Cell Distribution Width 15.8 % (11.5-14.5) Platelet Count 212 x10^3/uL (140-400) Neutrophils (%) (Auto) 68 % (31-73) Lymphocytes (%) (Auto) 17 % (24-48) Monocytes (%) (Auto) 11 % (0-9) Eosinophils (%) (Auto) 4 % (0-3) Basophils (%) (Auto) 1 % (0-3) Neutrophils # (Auto) 4.3 x10^3/uL (1.8-7.7) Lymphocytes # (Auto) 1.0 x10^3/uL (1.0-4.8) Monocytes # (Auto) 0.7 x10^3/uL (0.0-1.1) Eosinophils # (Auto) 0.3 x10^3/uL (0.0-0.7) Basophils # (Auto) 0.0 x10^3/uL (0.0-0.2) Sodium Level 141 mmol/L (136-145) Potassium Level 3.4 mmol/L (3.5-5.1) Chloride Level 104 mmol/L (98-107) Carbon Dioxide Level 32 mmol/L (21-32) Anion Gap 5 (6-14) Blood Urea Nitrogen 15 mg/dL (8-26) Creatinine 1.1 mg/dL (0.7-1.3) Estimated GFR (Cockcroft-Gault) 77.0 Glucose Level 101 mg/dL (70-99) Calcium Level 8.0 mg/dL (8.5-10.1) Review of Systems Review of Systems Weakness. Denies chest pain, denies shortness of breath, denies fever. Assessment and Plan Assessmemt and Plan Problems Medical Problems: (1) Fall Status: Acute (2) Rhabdomyolysis Status: Acute (3) Seizure Status: Acute (4) Bacteremia Status: Acute (5) Severe Malnutrition Status: Acute Comment Review of Relevant I have reviewed the following items adwoa (where applicable) has been applied. Labs Laboratory Tests Test 12/21/19 04:20 12/22/19 10:28 White Blood Count 6.9 x10^3/uL (4.0-11.0) 6.3 x10^3/uL (4.0-11.0) Red Blood Count 4.41 x10^6/uL (4.30-5.70) 4.61 x10^6/uL (4.30-5.70) Hemoglobin 13.0 g/dL (13.0-17.5) 13.5 g/dL (13.0-17.5) Hematocrit 37.7 % (39.0-53.0) 39.1 % (39.0-53.0) Mean Corpuscular Volume 86 fL (79-100) 85 fL (79-100) Mean Corpuscular Hemoglobin 30 pg (25-35) 29 pg (25-35) Mean Corpuscular Hemoglobin Concent 34 g/dL (31-37) 34 g/dL (31-37) Red Cell Distribution Width 16.1 % (11.5-14.5) 15.8 % (11.5-14.5) Platelet Count 172 x10^3/uL (140-400) 212 x10^3/uL (140-400) Neutrophils (%) (Auto) 70 % (31-73) 68 % (31-73) Lymphocytes (%) (Auto) 16 % (24-48) 17 % (24-48) Monocytes (%) (Auto) 11 % (0-9) 11 % (0-9) Eosinophils (%) (Auto) 3 % (0-3) 4 % (0-3) Basophils (%) (Auto) 0 % (0-3) 1 % (0-3) Neutrophils # (Auto) 4.8 x10^3/uL (1.8-7.7) 4.3 x10^3/uL (1.8-7.7) Lymphocytes # (Auto) 1.1 x10^3/uL (1.0-4.8) 1.0 x10^3/uL (1.0-4.8) Monocytes # (Auto) 0.8 x10^3/uL (0.0-1.1) 0.7 x10^3/uL (0.0-1.1) Eosinophils # (Auto) 0.2 x10^3/uL (0.0-0.7) 0.3 x10^3/uL (0.0-0.7) Basophils # (Auto) 0.0 x10^3/uL (0.0-0.2) 0.0 x10^3/uL (0.0-0.2) Sodium Level 142 mmol/L (136-145) 141 mmol/L (136-145) Potassium Level 3.8 mmol/L (3.5-5.1) 3.4 mmol/L (3.5-5.1) Chloride Level 108 mmol/L (98-107) 104 mmol/L (98-107) Carbon Dioxide Level 25 mmol/L (21-32) 32 mmol/L (21-32) Anion Gap 9 (6-14) 5 (6-14) Blood Urea Nitrogen 16 mg/dL (8-26) 15 mg/dL (8-26) Creatinine 0.8 mg/dL (0.7-1.3) 1.1 mg/dL (0.7-1.3) Estimated GFR (Cockcroft-Gault) 111.2 77.0 BUN/Creatinine Ratio 20 (6-20) Glucose Level 91 mg/dL (70-99) 101 mg/dL (70-99) Calcium Level 7.5 mg/dL (8.5-10.1) 8.0 mg/dL (8.5-10.1) Total Bilirubin 0.4 mg/dL (0.2-1.0) Aspartate Amino Transf (AST/SGOT) 35 U/L (15-37) Alanine Aminotransferase (ALT/SGPT) 30 U/L (16-63) Alkaline Phosphatase 59 U/L (46-116) Creatine Kinase 430 U/L (39-308) Total Protein 5.8 g/dL (6.4-8.2) Albumin 2.0 g/dL (3.4-5.0) Albumin/Globulin Ratio 0.5 (1.0-1.7) Laboratory Tests Test 12/22/19 10:28 White Blood Count 6.3 x10^3/uL (4.0-11.0) Red Blood Count 4.61 x10^6/uL (4.30-5.70) Hemoglobin 13.5 g/dL (13.0-17.5) Hematocrit 39.1 % (39.0-53.0) Mean Corpuscular Volume 85 fL (79-100) Mean Corpuscular Hemoglobin 29 pg (25-35) Mean Corpuscular Hemoglobin Concent 34 g/dL (31-37) Red Cell Distribution Width 15.8 % (11.5-14.5) Platelet Count 212 x10^3/uL (140-400) Neutrophils (%) (Auto) 68 % (31-73) Lymphocytes (%) (Auto) 17 % (24-48) Monocytes (%) (Auto) 11 % (0-9) Eosinophils (%) (Auto) 4 % (0-3) Basophils (%) (Auto) 1 % (0-3) Neutrophils # (Auto) 4.3 x10^3/uL (1.8-7.7) Lymphocytes # (Auto) 1.0 x10^3/uL (1.0-4.8) Monocytes # (Auto) 0.7 x10^3/uL (0.0-1.1) Eosinophils # (Auto) 0.3 x10^3/uL (0.0-0.7) Basophils # (Auto) 0.0 x10^3/uL (0.0-0.2) Sodium Level 141 mmol/L (136-145) Potassium Level 3.4 mmol/L (3.5-5.1) Chloride Level 104 mmol/L (98-107) Carbon Dioxide Level 32 mmol/L (21-32) Anion Gap 5 (6-14) Blood Urea Nitrogen 15 mg/dL (8-26) Creatinine 1.1 mg/dL (0.7-1.3) Estimated GFR (Cockcroft-Gault) 77.0 Glucose Level 101 mg/dL (70-99) Calcium Level 8.0 mg/dL (8.5-10.1) Microbiology 12/18/19 Blood Culture - Final, Complete 12/18/19 Antimicrobic Susceptibility - Final, Complete Medications Current Medications Sodium Chloride 1,000 ml @ 1,000 mls/hr 1X ONCE IV Last administered on 12/18/19at 15:37; Start 12/18/19 at 14:15; Stop 12/18/19 at 15:14; Status DC Sodium Chloride 1,000 ml @ 1,000 mls/hr 1X ONCE IV Last administered on 12/18/19at 20:06; Start 12/18/19 at 17:30; Stop 12/18/19 at 18:29; Status DC Sodium Chloride 1,000 ml @ 1,000 mls/hr 1X ONCE IV Last administered on 12/18/19at 17:55; Start 12/18/19 at 17:30; Stop 12/18/19 at 18:29; Status DC Ondansetron HCl (Zofran) 4 mg PRN Q4HRS PRN IV NAUSEA/VOMITING 1ST CHOICE; Start 12/18/19 at 23:45 Acetaminophen (Tylenol) 650 mg PRN Q4HRS PRN PO TEMP OVER 100.4F Last administered on 12/22/19at 03:08; Start 12/18/19 at 23:45 Enoxaparin Sodium (Lovenox 40mg Syringe) 40 mg QHS SQ Last administered on 12/21/19 21:26; Start 12/18/19 at 23:45 Levetiracetam (Keppra) 750 mg BID PO Last administered on 12/22/19 07:56; Start 12/19/19 at 00:00 Aspirin (Vicente Aspirin) 325 mg PRN BID PRN PO MILD PAIN 1-3; Start 12/19/19 at 00:00 Sodium Chloride 1,000 ml @ 75 mls/hr 1X ONCE IV Last administered on 12/19/19at 00:05; Start 12/19/19 at 00:30; Stop 12/19/19 at 13:51; Status DC Sodium Chloride 1,000 ml @ 150 mls/hr Q6H40M IV Last administered on 12/22/19at 07:55; Start 12/19/19 at 08:42 Multivitamins (Thera M Plus) 1 tab DAILY PO Last administered on 12/22/19 07:56; Start 12/20/19 at 09:00 Ascorbic Acid (Vitamin C) 500 mg DAILY PO Last administered on 12/22/19at 07:56; Start 12/20/19 at 09:00 Cefepime HCl (Maxipime) 1 gm Q12HR IVP Last administered on 12/22/19 07:56; Start 12/20/19 at 10:30 Lactobacillus Rhamnosus (Culturelle) 1 cap BID PO Last administered on 12/22/19 07:56; Start 12/21/19 at 21:00 Active Scripts Active Reported Tylenol (Acetaminophen) 325 Mg Tablet 650 Mg PO Q6HRS Keppra (Levetiracetam) 750 Mg Tablet 750 Mg PO BID Vitals/I & O Vital Sign - Last 24 Hours 12/21/19 12/21/19 12/21/19 12/21/19 15:00 19:44 20:00 23:26 Temp 98.7 99.8 100.2 98.7 99.8 100.2 Pulse 85 100 98 Resp 18 18 20 B/P (MAP) 121/61 (81) 128/68 (88) 134/72 (92) Pulse Ox 100 96 98 O2 Delivery Room Air Room Air Room Air Room Air 12/22/19 12/22/19 12/22/19 03:18 07:00 08:00 Temp 100.9 98.2 100.9 98.2 Pulse 109 78 Resp 18 20 B/P (MAP) 126/67 (86) 118/67 (84) Pulse Ox 96 O2 Delivery Room Air Room Air Room Air Intake and Output 12/21/19 12/21/19 12/22/19 15:00 23:00 07:00 Intake Total 500 ml Output Total 2100 ml Balance 500 ml -2100 ml Justicifation of Admission Dx: Justifications for Admission: Justification of Admission Dx: Yes Acute Renal Failure: 75% Reduction in GFR Altered Mental Status: Altered Mental Status CURTIS KAT MD Dec 22, 2019 11:25
[2019-12-22] MEDS: cefTRIAXone IV Push 2 GM VIAL. IVP SCH (14:13)
--- NOTE | 2019-12-22 14:58 | RAD ---
Examination: Right upper extremity venous duplex HISTORY: History of right upper extremity swelling, fever COMPARISON: None available TECHNIQUE: Grayscale, color Doppler 2-D, spectral waveforms of the right upper extremity venous system were performed FINDINGS: The visualized internal jugular vein, subclavian vein, cephalic vein, axillary vein, brachial vein, radial, ulnar veins are patent. Echogenicity identified in the small segment of the basilic vein likely superficial vein thrombosis. IMPRESSION: 1. No evidence of deep venous thrombosis. 2. Superficial vein thrombosis identified in the right basilic vein at the level of the midhumerus. Electronically signed by: Tong Elizondo MD (12/22/2019 2:55 PM) [id number]
[2019-12-22 15:00] VITALS: BP 120/67
[2019-12-22 19:30] VITALS: BP 131/69
[2019-12-22] MEDS: ENOXAPARIN 40 MG/0.4 ML SYRINGE. SQ SCH (20:54)
[2019-12-22 23:00] VITALS: BP 101/41
[2019-12-23] MEDS: IV NORMAL SALINE 1000ML BAG 1,000 ML IV SCH ×4 (01:46→20:02)
[2019-12-23 03:00] VITALS: BP 99/46
[2019-12-23 04:42] LABS: BASO % 1 % (0-3); EOS # 0.3 x10^3/uL (0.0-0.7); EOS % 5 % (0-3); HEMATOCRIT 34.6 % (39.0-53.0); HEMOGLOBIN 11.9 g/dL (13.0-17.5); LYMPH # 1.1 x10^3/uL (1.0-4.8); LYMPH % 19 % (24-48); MEAN CORPUSCULAR HEMOGLOBIN 29 pg (25-35); MEAN CORPUSCULAR HGB CONC 35 g/dL (31-37); MEAN CORPUSCULAR VOLUME 85 fL (79-100); MONO # 0.8 x10^3/uL (0.0-1.1); MONO % 15 % (0-9); NEUT # 3.6 x10^3/uL (1.8-7.7); NEUT % 61 % (31-73); PLATELET COUNT 203 x10^3/uL (140-400); RED BLOOD COUNT 4.05 x10^6/uL (4.30-5.70); RED CELL DISTRIBUTION WIDTH 16.3 % (11.5-14.5); WHITE BLOOD COUNT 5.8 x10^3/uL (4.0-11.0)
[2019-12-23 04:59] LABS: CALCIUM 7.6 mg/dL (8.5-10.1); CREATININE 0.9 mg/dL (0.7-1.3); POTASSIUM 3.9 mmol/L (3.5-5.1)
[2019-12-23 07:00] VITALS: BP 119/61
[2019-12-23] MEDS: LACTOBACILLUS RHAMNOSUS GG 1 CAPSULE. PO SCH ×2 (08:32→21:07)
[2019-12-23] MEDS: MULTIVITAMIN with MINERAL TABLET. PO SCH (08:32)
[2019-12-23] MEDS: ASCORBIC ACID 500 MG TABLET PO SCH (08:32)
[2019-12-23] MEDS: levETIRAcetam 250 MG TABLET PO SCH ×2 (08:33→21:07)
--- NOTE | 2019-12-23 08:41 | PDOC ---
Infectious Disease Note Subjective Subjective Some back discomfort -better. Had a good night No F/C/S/N/V/D/SOA/rash Vital Sign Vital Signs Vital Signs Date Time Temp Pulse Resp B/P (MAP) Pulse Ox O2 Delivery O2 Flow Rate FiO2 12/23/19 03:00 99.3 86 20 99/46 (63) 95 Room Air 99.3 Physical Exam PHYSICAL EXAM CONSTITUTIONAL: He is in bed He is in no acute distress. He is pleasant. HEENT: He has got normal conjunctivae. Oral cavity, pharynx is clear. He has poor dentition. NECK: Supple, no JVD. He has got well-healed scar in the back. LUNGS: Decreased in bases. HEART: S1, S2. ABDOMEN: Soft. No guarding, no rebound. GENITOURINARY: Mark is in place. EXTREMITIES: Without clubbing, cyanosis. He has some increase discomfort and edema in RUE - slight better. He has some superficial wounds on the sacral area, also has a blister of his left knee and deep tissue injury to his left heel, but no gross signs of any infection. NEUROLOGIC: He answers questions, but is confused, moves all extremities. PSYCHIATRIC: Affect is very pleasant. Labs Lab Laboratory Tests Test 12/22/19 10:28 12/23/19 03:35 White Blood Count 6.3 x10^3/uL (4.0-11.0) 5.8 x10^3/uL (4.0-11.0) Red Blood Count 4.61 x10^6/uL (4.30-5.70) 4.05 x10^6/uL (4.30-5.70) Hemoglobin 13.5 g/dL (13.0-17.5) 11.9 g/dL (13.0-17.5) Hematocrit 39.1 % (39.0-53.0) 34.6 % (39.0-53.0) Mean Corpuscular Volume 85 fL (79-100) 85 fL (79-100) Mean Corpuscular Hemoglobin 29 pg (25-35) 29 pg (25-35) Mean Corpuscular Hemoglobin Concent 34 g/dL (31-37) 35 g/dL (31-37) Red Cell Distribution Width 15.8 % (11.5-14.5) 16.3 % (11.5-14.5) Platelet Count 212 x10^3/uL (140-400) 203 x10^3/uL (140-400) Neutrophils (%) (Auto) 68 % (31-73) 61 % (31-73) Lymphocytes (%) (Auto) 17 % (24-48) 19 % (24-48) Monocytes (%) (Auto) 11 % (0-9) 15 % (0-9) Eosinophils (%) (Auto) 4 % (0-3) 5 % (0-3) Basophils (%) (Auto) 1 % (0-3) 1 % (0-3) Neutrophils # (Auto) 4.3 x10^3/uL (1.8-7.7) 3.6 x10^3/uL (1.8-7.7) Lymphocytes # (Auto) 1.0 x10^3/uL (1.0-4.8) 1.1 x10^3/uL (1.0-4.8) Monocytes # (Auto) 0.7 x10^3/uL (0.0-1.1) 0.8 x10^3/uL (0.0-1.1) Eosinophils # (Auto) 0.3 x10^3/uL (0.0-0.7) 0.3 x10^3/uL (0.0-0.7) Basophils # (Auto) 0.0 x10^3/uL (0.0-0.2) 0.0 x10^3/uL (0.0-0.2) Sodium Level 141 mmol/L (136-145) 141 mmol/L (136-145) Potassium Level 3.4 mmol/L (3.5-5.1) 3.9 mmol/L (3.5-5.1) Chloride Level 104 mmol/L (98-107) 106 mmol/L (98-107) Carbon Dioxide Level 32 mmol/L (21-32) 28 mmol/L (21-32) Anion Gap 5 (6-14) 7 (6-14) Blood Urea Nitrogen 15 mg/dL (8-26) 15 mg/dL (8-26) Creatinine 1.1 mg/dL (0.7-1.3) 0.9 mg/dL (0.7-1.3) Estimated GFR (Cockcroft-Gault) 77.0 97.0 Glucose Level 101 mg/dL (70-99) 105 mg/dL (70-99) Calcium Level 8.0 mg/dL (8.5-10.1) 7.6 mg/dL (8.5-10.1) Micro IMPRESSION: 1. No evidence of deep venous thrombosis. 2. Superficial vein thrombosis identified in the right basilic vein at the level of the midhumerus. BLOOD CULTURE LC Final Final GRAM NEGATIVE RODS FINAL ID= [PROTEUS VULGARIS GROUP] PROTEUS VULGARIS GROUP ANTIMICROBIAL SUSCEPTIBILITY Final Comment NEG INNA 56 PROTEUS VULGARIS GROUP ANTIBIOTIC RESULT INTERPRETATION AMPICILLIN/SULBACTAM <=4/2 S AMIKACIN <=16 S AMPICILLIN >16 R AMOXICILLIN/K CLAVULANATE <=8/4 S AZTREONAM <=4 S CEFTRIAXONE <=1 S CEFTAZIDIME 4 S CEFOTAXIME <=2 S CEFOXITIN <=8 S CIPROFLOXACIN <=0.25 S CEFEPIME <=2 S CEFUROXIME >16 R ERTAPENEM <=0.5 S GENTAMICIN <=2 S LEVOFLOXACIN <=0.5 S MEROPENEM <=1 S PIPERACILLIN/TAZOBACTAM <=8 S TRIMETHOPRIM/SULFAMETHOXAZOLE <=0.5/9.5 S TETRACYCLINE >8 R TOBRAMYCIN <=2 S Microbiology 12/18/19 Blood Culture - Final, Complete Objective Assessment Fever - thrombus RUE swelling - supperficial thrombus Proteus bacteremia 12/17 - POA - per micro Epilepsy Multiple wounds Rhabdo - better Dementia Plan Plan of Care Discont Cefepime and started Rocephin 12/21 treat thru 12/26 D/w nursing NANDO VILLARREAL MD Dec 23, 2019 08:41
[2019-12-23 11:00] VITALS: BP 116/58
[2019-12-23] MEDS: cefTRIAXone IV Push 2 GM VIAL. IVP SCH (12:52)
[2019-12-23 15:00] VITALS: BP 116/54
--- NOTE | 2019-12-23 16:02 | PDOC ---
GENERAL General: Patient examined chart reviewed today is hospital day 6 for this patient with found down at home for an unknown period of time he believes he may have had a seizure. He has slowly clinically improved. We appreciate subspecialty support. Is been found to have a Proteus mirabilis bacteremia. He did have an episode of abrupt significant vomiting yesterday he is not sure what precipitated that. He is a low-grade temp today we will check a bedside chest x-ray. Patient will need a very robust discharge plan to avoid readmission. I will review the therapy notes but it sounds like he may need a rehab stay to optimize his functional status. He has several significant decubitus ulcers from clinical report that will need care and attention. Patient tells me he lives alone and has Meals on Wheels delivered. He does report that he feels safe at home. Problems: (1) Bacterial infection due to Proteus mirabilis (2) Decubitus skin ulcer (3) Rhabdomyolysis (4) Fall VITAL SIGNS Vital Signs/I&O: Vital Signs Date Time Temp Pulse Resp B/P (MAP) Pulse Ox O2 Delivery O2 Flow Rate FiO2 12/23/19 15:00 98.0 78 16 116/54 (74) 99 Room Air 98.0 I & O 12/22/19 12/22/19 12/23/19 15:00 23:00 07:00 Intake Total 50 ml Output Total 1805 ml 650 ml Balance -1755 ml -650 ml In general the patient is pleasant appropriately interactive at baseline orientation in no acute distress HEENT exam is unremarkable for acute abnormality. Poor dentition Chest bilateral equal air entry though diminished throughout Heart S1-S2 normal regular rate and rhythm no murmurs or gallops are noted Abdomen soft nontender nondistended no masses organomegaly noted Extremity exam is notable for chronic venous stasis dermatitis, lymphedema, his buttock wounds are covered. ALLERGIES Allergies: Allergies Coded Allergies Type Severity Reaction Last Updated Verified No Known Drug Allergies 07/30/14 No MEDS Medications: Current Medications Medications (Trade) Dose Ordered Sig/Sriram Start Time Stop Time Status Last Admin Dose Admin Acetaminophen (Tylenol) 650 mg PRN Q4HRS PRN 12/18/19 23:45 12/22/19 03:08 Ascorbic Acid (Vitamin C) 500 mg DAILY 12/20/19 09:00 12/23/19 08:32 Aspirin (Vicente Aspirin) 325 mg PRN BID PRN 12/19/19 00:00 Cefepime HCl (Maxipime) 1 gm Q12HR 12/20/19 10:30 12/22/19 12:03 DC 12/22/19 07:56 Ceftriaxone Sodium (Rocephin) 2 gm Q24H 12/22/19 13:00 12/23/19 12:52 Enoxaparin Sodium (Lovenox 40mg Syringe) 40 mg QHS 12/18/19 23:45 12/22/19 20:54 Lactobacillus Rhamnosus (Culturelle) 1 cap BID 12/21/19 21:00 12/23/19 08:32 Levetiracetam (Keppra) 750 mg BID 12/19/19 00:00 12/23/19 08:33 Multivitamins (Thera M Plus) 1 tab DAILY 12/20/19 09:00 12/23/19 08:32 Ondansetron HCl (Zofran) 4 mg PRN Q4HRS PRN 12/18/19 23:45 12/22/19 14:25 Sodium Chloride 1,000 ml @ 150 mls/hr Q6H40M 12/19/19 08:42 12/23/19 12:53 LAB Lab: Laboratory Tests Test 12/23/19 03:35 White Blood Count 5.8 x10^3/uL (4.0-11.0) Red Blood Count 4.05 x10^6/uL (4.30-5.70) L Hemoglobin 11.9 g/dL (13.0-17.5) L Hematocrit 34.6 % (39.0-53.0) L Mean Corpuscular Volume 85 fL (79-100) Mean Corpuscular Hemoglobin 29 pg (25-35) Mean Corpuscular Hemoglobin Concent 35 g/dL (31-37) Red Cell Distribution Width 16.3 % (11.5-14.5) H Platelet Count 203 x10^3/uL (140-400) Neutrophils (%) (Auto) 61 % (31-73) Lymphocytes (%) (Auto) 19 % (24-48) L Monocytes (%) (Auto) 15 % (0-9) H Eosinophils (%) (Auto) 5 % (0-3) H Basophils (%) (Auto) 1 % (0-3) Neutrophils # (Auto) 3.6 x10^3/uL (1.8-7.7) Lymphocytes # (Auto) 1.1 x10^3/uL (1.0-4.8) Monocytes # (Auto) 0.8 x10^3/uL (0.0-1.1) Eosinophils # (Auto) 0.3 x10^3/uL (0.0-0.7) Basophils # (Auto) 0.0 x10^3/uL (0.0-0.2) Sodium Level 141 mmol/L (136-145) Potassium Level 3.9 mmol/L (3.5-5.1) Chloride Level 106 mmol/L (98-107) Carbon Dioxide Level 28 mmol/L (21-32) Anion Gap 7 (6-14) Blood Urea Nitrogen 15 mg/dL (8-26) Creatinine 0.9 mg/dL (0.7-1.3) Estimated GFR (Cockcroft-Gault) 97.0 Glucose Level 105 mg/dL (70-99) H Calcium Level 7.6 mg/dL (8.5-10.1) L Laboratory Tests 12/23/19 03:35 Laboratory Tests 12/23/19 03:35 ASSESSMENT & PLAN A&P Plan as noted above This note was created using [employer] and may have omissions and/or errors due to the nature of real-time voice strap maker. Justicifation of Admission Dx: Justifications for Admission: Justification of Admission Dx: Yes Acute Renal Failure: 75% Reduction in GFR Altered Mental Status: Altered Mental Status Problem Qualifiers (1) Rhabdomyolysis: Rhabdomyolysis type: non-traumatic Qualified Codes: M62.82 - Rhabdomyolysis (2) Fall: Encounter type: initial encounter Qualified Codes: W19.XXXA - Unspecified fall, initial encounter ARAVIND LUCIO MD Dec 23, 2019 16:02
--- NOTE | 2019-12-23 17:14 | RAD ---
EXAM: Chest, single view. HISTORY: Aspiration. COMPARISON: 12/18/2019 FINDINGS: A frontal view of the chest is obtained. There is left lower lobe opacity likely due to atelectasis. There is no consolidation, pleural effusion or pneumothorax. There is a stable cardiac silhouette and prominent possibly ectatic or tortuous aortic arch. IMPRESSION: Suspected left lower lobe atelectasis. Electronically signed by: Martha Quintanilla MD (12/23/2019 5:11 PM) [facility]
[2019-12-23 19:00] VITALS: BP 134/69
[2019-12-23] MEDS: ENOXAPARIN 40 MG/0.4 ML SYRINGE. SQ SCH (21:10)
[2019-12-23 23:00] VITALS: BP 139/69
[2019-12-24 03:00] VITALS: BP 145/78
[2019-12-24] MEDS: IV NORMAL SALINE 1000ML BAG 1,000 ML IV SCH (06:12)
[2019-12-24 07:00] VITALS: BP 133/68
--- NOTE | 2019-12-24 08:23 | PDOC ---
Infectious Disease Note Subjective Subjective Some constipation. Arm better. Had a good night No F/C/S/N/V/D/SOA/rash Vital Sign Vital Signs Vital Signs Date Time Temp Pulse Resp B/P (MAP) Pulse Ox O2 Delivery O2 Flow Rate FiO2 12/24/19 03:00 100.0 80 18 145/78 (100) 95 Room Air 100.0 Physical Exam PHYSICAL EXAM CONSTITUTIONAL: He is in bed He is in no acute distress. He is pleasant. in bed and ate HEENT: He has got normal conjunctivae. Oral cavity, pharynx is clear. He has poor dentition. NECK: Supple, no JVD. He has got well-healed scar in the back. LUNGS: Decreased in bases. HEART: S1, S2. ABDOMEN: Soft. No guarding, no rebound. GENITOURINARY: Mark is in place. EXTREMITIES: Without clubbing, cyanosis. He has some increase discomfort and edema in RUE - slight better. He has some superficial wounds on the sacral area, also has a blister of his left knee and deep tissue injury to his left heel, but no gross signs of any infection. NEUROLOGIC: He answers questions, but is confused, moves all extremities. PSYCHIATRIC: Affect is very pleasant. Labs Micro IMPRESSION: 1. No evidence of deep venous thrombosis. 2. Superficial vein thrombosis identified in the right basilic vein at the level of the midhumerus. BLOOD CULTURE LC Final Final GRAM NEGATIVE RODS FINAL ID= [PROTEUS VULGARIS GROUP] PROTEUS VULGARIS GROUP ANTIMICROBIAL SUSCEPTIBILITY Final Comment NEG INNA 56 PROTEUS VULGARIS GROUP ANTIBIOTIC RESULT INTERPRETATION AMPICILLIN/SULBACTAM <=4/2 S AMIKACIN <=16 S AMPICILLIN >16 R AMOXICILLIN/K CLAVULANATE <=8/4 S AZTREONAM <=4 S CEFTRIAXONE <=1 S CEFTAZIDIME 4 S CEFOTAXIME <=2 S CEFOXITIN <=8 S CIPROFLOXACIN <=0.25 S CEFEPIME <=2 S CEFUROXIME >16 R ERTAPENEM <=0.5 S GENTAMICIN <=2 S LEVOFLOXACIN <=0.5 S MEROPENEM <=1 S PIPERACILLIN/TAZOBACTAM <=8 S TRIMETHOPRIM/SULFAMETHOXAZOLE <=0.5/9.5 S TETRACYCLINE >8 R TOBRAMYCIN <=2 S Microbiology 12/18/19 Blood Culture - Final, Complete Objective Assessment Fever - thrombus RUE swelling - supperficial thrombus Proteus bacteremia 12/17 - POA - per micro Epilepsy Multiple wounds Rhabdo - better Dementia Plan Plan of Care Discont Cefepime and started Rocephin 12/21 treat thru 12/26 Repeat Blood cults D/w nursing NANDO VILLARREAL MD Dec 24, 2019 08:23
[2019-12-24 08:35] LABS: BASO % 1 % (0-3); EOS # 0.3 x10^3/uL (0.0-0.7); EOS % 5 % (0-3); HEMOGLOBIN 13.1 g/dL (13.0-17.5); LYMPH # 1.1 x10^3/uL (1.0-4.8); LYMPH % 18 % (24-48); MEAN CORPUSCULAR HEMOGLOBIN 29 pg (25-35); MEAN CORPUSCULAR HGB CONC 34 g/dL (31-37); MEAN CORPUSCULAR VOLUME 85 fL (79-100); MONO # 0.8 x10^3/uL (0.0-1.1); MONO % 13 % (0-9); NEUT % 64 % (31-73); PLATELET COUNT 236 x10^3/uL (140-400); RED BLOOD COUNT 4.49 x10^6/uL (4.30-5.70); WHITE BLOOD COUNT 6.2 x10^3/uL (4.0-11.0)
[2019-12-24] MEDS: LACTOBACILLUS RHAMNOSUS GG 1 CAPSULE. PO SCH ×2 (08:38→21:15)
[2019-12-24] MEDS: MULTIVITAMIN with MINERAL TABLET. PO SCH (08:38)
[2019-12-24] MEDS: ASCORBIC ACID 500 MG TABLET PO SCH (08:38)
[2019-12-24] MEDS: levETIRAcetam 250 MG TABLET PO SCH ×2 (08:38→21:15)
[2019-12-24 09:01] LABS: ALBUMIN 2.1 g/dL (3.4-5.0); ALBUMIN/GLOBULIN RATIO 0.5 (1.0-1.7); CALCIUM 7.9 mg/dL (8.5-10.1); GFR 85.9; POTASSIUM 4.5 mmol/L (3.5-5.1); TOTAL BILIRUBIN 0.3 mg/dL (0.2-1.0); TOTAL PROTEIN 6.3 g/dL (6.4-8.2)
--- NOTE | 2019-12-24 10:20 | PDOC ---
GENERAL General: Patient examined chart reviewed he is resting comfortably this morning and is without new complaint. He did have a T-max of 100 overnight. He is agreeable to a rehab stay as suggested by physical therapy. We will discontinue intravenous fluids today and have him up and moving about plan on fdc tomorrow depending on his progress. We appreciate subspecialty support. Problems: (1) Rhabdomyolysis (2) Decubitus skin ulcer (3) Severe malnutrition (4) Bacterial infection due to Proteus mirabilis VITAL SIGNS Vital Signs/I&O: Vital Signs Date Time Temp Pulse Resp B/P (MAP) Pulse Ox O2 Delivery O2 Flow Rate FiO2 12/24/19 07:00 97.9 81 18 133/68 (89) 99 Room Air 97.9 I & O 12/23/19 12/23/19 12/24/19 15:00 23:00 07:00 Intake Total 400 ml 120 ml 3600 ml Output Total 2250 ml 2000 ml Balance 400 ml -2130 ml 1600 ml In general the patient is pleasant at baseline orientation in no acute distress HEENT exam is unremarkable for acute abnormality Chest is clear to auscultation Heart S1-S2 normal regular rate and rhythm no murmurs or gallops are noted Abdomen soft nontender nondistended no masses organomegaly noted Extremity exam is unremarkable for acute abnormality ALLERGIES Allergies: Allergies Coded Allergies Type Severity Reaction Last Updated Verified No Known Drug Allergies 07/30/14 No MEDS Medications: Current Medications Medications (Trade) Dose Ordered Sig/Sriram Start Time Stop Time Status Last Admin Dose Admin Acetaminophen (Tylenol) 650 mg PRN Q4HRS PRN 12/18/19 23:45 12/22/19 03:08 Ascorbic Acid (Vitamin C) 500 mg DAILY 12/20/19 09:00 12/24/19 08:38 Aspirin (Vicente Aspirin) 325 mg PRN BID PRN 12/19/19 00:00 Cefepime HCl (Maxipime) 1 gm Q12HR 12/20/19 10:30 12/22/19 12:03 DC 12/22/19 07:56 Ceftriaxone Sodium (Rocephin) 2 gm Q24H 12/22/19 13:00 12/23/19 12:52 Enoxaparin Sodium (Lovenox 40mg Syringe) 40 mg QHS 12/18/19 23:45 12/23/19 21:10 Lactobacillus Rhamnosus (Culturelle) 1 cap BID 12/21/19 21:00 12/24/19 08:38 Levetiracetam (Keppra) 750 mg BID 12/19/19 00:00 12/24/19 08:38 Multivitamins (Thera M Plus) 1 tab DAILY 12/20/19 09:00 12/24/19 08:38 Ondansetron HCl (Zofran) 4 mg PRN Q4HRS PRN 12/18/19 23:45 12/22/19 14:25 Sodium Chloride 1,000 ml @ 150 mls/hr Q6H40M 12/19/19 08:42 12/24/19 09:36 DC 12/24/19 06:12 LAB Lab: Laboratory Tests Test 12/24/19 08:20 White Blood Count 6.2 x10^3/uL (4.0-11.0) Red Blood Count 4.49 x10^6/uL (4.30-5.70) Hemoglobin 13.1 g/dL (13.0-17.5) Hematocrit 38.0 % (39.0-53.0) L Mean Corpuscular Volume 85 fL (79-100) Mean Corpuscular Hemoglobin 29 pg (25-35) Mean Corpuscular Hemoglobin Concent 34 g/dL (31-37) Red Cell Distribution Width 16.0 % (11.5-14.5) H Platelet Count 236 x10^3/uL (140-400) Neutrophils (%) (Auto) 64 % (31-73) Lymphocytes (%) (Auto) 18 % (24-48) L Monocytes (%) (Auto) 13 % (0-9) H Eosinophils (%) (Auto) 5 % (0-3) H Basophils (%) (Auto) 1 % (0-3) Neutrophils # (Auto) 4.0 x10^3/uL (1.8-7.7) Lymphocytes # (Auto) 1.1 x10^3/uL (1.0-4.8) Monocytes # (Auto) 0.8 x10^3/uL (0.0-1.1) Eosinophils # (Auto) 0.3 x10^3/uL (0.0-0.7) Basophils # (Auto) 0.0 x10^3/uL (0.0-0.2) Sodium Level 140 mmol/L (136-145) Potassium Level 4.5 mmol/L (3.5-5.1) Chloride Level 103 mmol/L (98-107) Carbon Dioxide Level 34 mmol/L (21-32) H Anion Gap 3 (6-14) L Blood Urea Nitrogen 13 mg/dL (8-26) Creatinine 1.0 mg/dL (0.7-1.3) Estimated GFR (Cockcroft-Gault) 85.9 BUN/Creatinine Ratio 13 (6-20) Glucose Level 106 mg/dL (70-99) H Calcium Level 7.9 mg/dL (8.5-10.1) L Total Bilirubin 0.3 mg/dL (0.2-1.0) Aspartate Amino Transferase (AST) 93 U/L (15-37) H Alanine Aminotransferase (ALT) 112 U/L (16-63) H Alkaline Phosphatase 53 U/L (46-116) Creatine Kinase 92 U/L (39-308) Total Protein 6.3 g/dL (6.4-8.2) L Albumin 2.1 g/dL (3.4-5.0) L Albumin/Globulin Ratio 0.5 (1.0-1.7) L Laboratory Tests 12/24/19 08:20 Laboratory Tests 12/24/19 08:20 ASSESSMENT & PLAN A&P Plan as noted above This note was created using [employer] and may have omissions and/or errors due to the nature of real-time voice applications packager. Justicifation of Admission Dx: Justifications for Admission: Justification of Admission Dx: Yes Acute Renal Failure: 75% Reduction in GFR Altered Mental Status: Altered Mental Status Problem Qualifiers (1) Rhabdomyolysis: Rhabdomyolysis type: non-traumatic Qualified Codes: M62.82 - Rhabdomyolysis ARAVIND LUCIO MD Dec 24, 2019 10:20
[2019-12-24 11:00] VITALS: BP 120/66
[2019-12-24] MEDS: cefTRIAXone IV Push 2 GM VIAL. IVP SCH (13:46)
[2019-12-24 15:00] VITALS: BP 118/60
[2019-12-24 19:00] VITALS: BP 122/62
[2019-12-24] MEDS: ENOXAPARIN 40 MG/0.4 ML SYRINGE. SQ SCH (21:00)
[2019-12-24 23:00] VITALS: BP 136/75
[2019-12-25 03:00] VITALS: BP 137/74
[2019-12-25 07:00] VITALS: BP 136/71
[2019-12-25] MEDS: ASCORBIC ACID 500 MG TABLET PO SCH (08:29)
[2019-12-25] MEDS: LACTOBACILLUS RHAMNOSUS GG 1 CAPSULE. PO SCH ×2 (08:29→21:39)
[2019-12-25] MEDS: MULTIVITAMIN with MINERAL TABLET. PO SCH (08:29)
[2019-12-25] MEDS: levETIRAcetam 250 MG TABLET PO SCH ×2 (08:30→21:37)
--- NOTE | 2019-12-25 09:20 | PDOC ---
Infectious Disease Note Subjective Subjective says feeling better ROS ROS no n/v/d/ cont fever Vital Sign Vital Signs Vital Signs Date Time Temp Pulse Resp B/P (MAP) Pulse Ox O2 Delivery O2 Flow Rate FiO2 12/25/19 07:00 99.9 82 18 136/71 (92) 96 Room Air 99.9 Physical Exam PHYSICAL EXAM CONSTITUTIONAL: He is in bed He is in no acute distress. He is pleasant. in bed and ate HEENT: He has got normal conjunctivae. Oral cavity, pharynx is clear. He has poor dentition. NECK: Supple, no JVD. He has got well-healed scar in the back. LUNGS: Decreased in bases. HEART: S1, S2. ABDOMEN: Soft. No guarding, no rebound. GENITOURINARY: Mark is in place. EXTREMITIES: Without clubbing, cyanosis. He has some increase discomfort and edema in RUE - slight better. He has some superficial wounds on the sacral area, also has a blister of his left knee and deep tissue injury to his left heel, but no gross signs of any infection. NEUROLOGIC: He answers questions, but is confused, moves all extremities. PSYCHIATRIC: Affect is very pleasant. Labs Micro BLOOD CULTURE LC Final Final GRAM NEGATIVE RODS FINAL ID= [PROTEUS VULGARIS GROUP] PROTEUS VULGARIS GROUP ANTIMICROBIAL SUSCEPTIBILITY Final Comment NEG INNA 56 PROTEUS VULGARIS GROUP ANTIBIOTIC RESULT INTERPRETATION AMPICILLIN/SULBACTAM <=4/2 S AMIKACIN <=16 S AMPICILLIN >16 R AMOXICILLIN/K CLAVULANATE <=8/4 S AZTREONAM <=4 S CEFTRIAXONE <=1 S CEFTAZIDIME 4 S CEFOTAXIME <=2 S CEFOXITIN <=8 S CIPROFLOXACIN <=0.25 S CEFEPIME <=2 S CEFUROXIME >16 R ERTAPENEM <=0.5 S GENTAMICIN <=2 S LEVOFLOXACIN <=0.5 S MEROPENEM <=1 S PIPERACILLIN/TAZOBACTAM <=8 S TRIMETHOPRIM/SULFAMETHOXAZOLE <=0.5/9.5 S TETRACYCLINE >8 R TOBRAMYCIN <=2 S Unless otherwise specified, Testing Performed by: [address] [address] For Inquires, the Physician may contact the Microbiology department at [phone] Objective Assessment Fever - thrombus RUE swelling - supperficial thrombus Proteus bacteremia 12/17 - POA - per micro Epilepsy Multiple wounds Rhabdo - better Dementia Plan Plan of Care Repeat Blood cults neg change antibiotics to zosyn D/w nursing ANDREIA METZGER MD Dec 25, 2019 09:19
--- NOTE | 2019-12-25 09:39 | NUR ---
SW following. Discussed with RN, pt having fevers, IV abx changed to IV zosyn. Plan is [facility] for SNU. SW will continue to follow.
--- NOTE | 2019-12-25 10:44 | PDOC ---
PROGRESS NOTES Assessment Problems Medical Problems: (1) Fall Status: Acute (2) Rhabdomyolysis Status: Acute (3) Seizure Status: Acute Epilepsy Rhabdomyolysis, he has had this before. Suspect dementia Alcoholism Positive sleep study for sleep apnea on 09/21/18, doubt he would be a good candidate for CPAP Bacteremia, Proteus Fever possibly due to right upper extremity supperficial thrombus Plan Levetiracetam Abstinence from alcohol Discharging to [facility] Follow-up with neurology as needed Subjective No complaints Objective Vital Signs Date Time Temp Pulse Resp B/P (MAP) Pulse Ox O2 Delivery O2 Flow Rate FiO2 12/25/19 07:00 99.9 82 18 136/71 (92) 96 Room Air 99.9 Intake and Output 12/25/19 07:00 Intake Total 540 ml Output Total 7150 ml Balance -6610 ml Intake Oral 540 ml Output Urine Total 7150 ml PHYSICAL EXAM Alert. Oriented to place and person, does not know date. PERRL. EOMI. CN: no focal findings. Muscle tone: normal. Muscle strength: 4/5 DTR: 2+ Plantar reflex: flexor Gait: not examined in bed. Sensory exam: no abnormal findings. No cerebellar signs elicited. Review of Relevant I have reviewed the following items adwoa (where applicable) has been applied. Labs Laboratory Tests Test 12/24/19 08:20 White Blood Count 6.2 x10^3/uL (4.0-11.0) Red Blood Count 4.49 x10^6/uL (4.30-5.70) Hemoglobin 13.1 g/dL (13.0-17.5) Hematocrit 38.0 % (39.0-53.0) Mean Corpuscular Volume 85 fL (79-100) Mean Corpuscular Hemoglobin 29 pg (25-35) Mean Corpuscular Hemoglobin Concent 34 g/dL (31-37) Red Cell Distribution Width 16.0 % (11.5-14.5) Platelet Count 236 x10^3/uL (140-400) Neutrophils (%) (Auto) 64 % (31-73) Lymphocytes (%) (Auto) 18 % (24-48) Monocytes (%) (Auto) 13 % (0-9) Eosinophils (%) (Auto) 5 % (0-3) Basophils (%) (Auto) 1 % (0-3) Neutrophils # (Auto) 4.0 x10^3/uL (1.8-7.7) Lymphocytes # (Auto) 1.1 x10^3/uL (1.0-4.8) Monocytes # (Auto) 0.8 x10^3/uL (0.0-1.1) Eosinophils # (Auto) 0.3 x10^3/uL (0.0-0.7) Basophils # (Auto) 0.0 x10^3/uL (0.0-0.2) Sodium Level 140 mmol/L (136-145) Potassium Level 4.5 mmol/L (3.5-5.1) Chloride Level 103 mmol/L (98-107) Carbon Dioxide Level 34 mmol/L (21-32) Anion Gap 3 (6-14) Blood Urea Nitrogen 13 mg/dL (8-26) Creatinine 1.0 mg/dL (0.7-1.3) Estimated GFR (Cockcroft-Gault) 85.9 BUN/Creatinine Ratio 13 (6-20) Glucose Level 106 mg/dL (70-99) Calcium Level 7.9 mg/dL (8.5-10.1) Total Bilirubin 0.3 mg/dL (0.2-1.0) Aspartate Amino Transf (AST/SGOT) 93 U/L (15-37) Alanine Aminotransferase (ALT/SGPT) 112 U/L (16-63) Alkaline Phosphatase 53 U/L (46-116) Creatine Kinase 92 U/L (39-308) Total Protein 6.3 g/dL (6.4-8.2) Albumin 2.1 g/dL (3.4-5.0) Albumin/Globulin Ratio 0.5 (1.0-1.7) Microbiology 12/24/19 Blood Culture - Preliminary, Resulted NO GROWTH AFTER 1 DAY Medications Current Medications Sodium Chloride 1,000 ml @ 1,000 mls/hr 1X ONCE IV Last administered on 12/18/19at 15:37; Start 12/18/19 at 14:15; Stop 12/18/19 at 15:14; Status DC Sodium Chloride 1,000 ml @ 1,000 mls/hr 1X ONCE IV Last administered on 12/18/19at 20:06; Start 12/18/19 at 17:30; Stop 12/18/19 at 18:29; Status DC Sodium Chloride 1,000 ml @ 1,000 mls/hr 1X ONCE IV Last administered on 12/18/19at 17:55; Start 12/18/19 at 17:30; Stop 12/18/19 at 18:29; Status DC Ondansetron HCl (Zofran) 4 mg PRN Q4HRS PRN IV NAUSEA/VOMITING 1ST CHOICE Last administered on 12/22/19at 14:25; Start 12/18/19 at 23:45 Acetaminophen (Tylenol) 650 mg PRN Q4HRS PRN PO TEMP OVER 100.4F Last administered on 12/22/19at 03:08; Start 12/18/19 at 23:45 Enoxaparin Sodium (Lovenox 40mg Syringe) 40 mg QHS SQ Last administered on 12/24/19at 21:00; Start 12/18/19 at 23:45 Levetiracetam (Keppra) 750 mg BID PO Last administered on 12/25/19at 08:30; Start 12/19/19 at 00:00 Aspirin (Vicente Aspirin) 325 mg PRN BID PRN PO MILD PAIN 1-3; Start 12/19/19 at 00:00 Sodium Chloride 1,000 ml @ 75 mls/hr 1X ONCE IV Last administered on 12/19/19at 00:05; Start 12/19/19 at 00:30; Stop 12/19/19 at 13:51; Status DC Sodium Chloride 1,000 ml @ 150 mls/hr Q6H40M IV Last administered on 12/24/19at 06:12; Start 12/19/19 at 08:42; Stop 12/24/19 at 09:36; Status DC Multivitamins (Thera M Plus) 1 tab DAILY PO Last administered on 12/25/19at 08:29; Start 12/20/19 at 09:00 Ascorbic Acid (Vitamin C) 500 mg DAILY PO Last administered on 12/25/19at 08:29; Start 12/20/19 at 09:00 Cefepime HCl (Maxipime) 1 gm Q12HR IVP Last administered on 12/22/19at 07:56; Start 12/20/19 at 10:30; Stop 12/22/19 at 12:03; Status DC Lactobacillus Rhamnosus (Culturelle) 1 cap BID PO Last administered on 12/25/19at 08:29; Start 12/21/19 at 21:00 Ceftriaxone Sodium (Rocephin) 2 gm Q24H IVP Last administered on 12/24/19at 13:46; Start 12/22/19 at 13:00; Stop 12/25/19 at 09:20; Status DC Piperacillin Sod/ Tazobactam Sod 3.375 gm/Sodium Chloride 50 ml @ 100 mls/hr Q6HRS IV ; Start 12/25/19 at 12:00 Active Scripts Active Reported Tylenol (Acetaminophen) 325 Mg Tablet 650 Mg PO Q6HRS Keppra (Levetiracetam) 750 Mg Tablet 750 Mg PO BID Vitals/I & O Vital Sign - Last 24 Hours 12/24/19 12/24/19 12/24/19 12/24/19 11:00 15:00 19:00 19:40 Temp 98.9 98.9 98.9 98.9 98.9 98.9 Pulse 78 74 83 Resp 18 18 18 B/P (MAP) 120/66 (84) 118/60 (79) 122/62 (82) Pulse Ox 98 98 96 O2 Delivery Room Air Room Air Room Air Room Air 12/24/19 12/25/19 12/25/19 23:00 03:00 07:00 Temp 99.7 100.2 99.9 99.7 100.2 99.9 Pulse 81 79 82 Resp 18 18 18 B/P (MAP) 136/75 (95) 137/74 (95) 136/71 (92) Pulse Ox 96 94 96 O2 Delivery Room Air Room Air Room Air Intake and Output 12/24/19 12/24/19 12/25/19 15:00 23:00 07:00 Intake Total 300 ml 240 ml Output Total 6200 ml 950 ml Balance 300 ml -5960 ml -950 ml Justicifation of Admission Dx: Justifications for Admission: Justification of Admission Dx: Yes Acute Renal Failure: 75% Reduction in GFR Altered Mental Status: Altered Mental Status CHRISTIAN BALL MD Dec 25, 2019 10:44
[2019-12-25 11:00] VITALS: BP 142/70
[2019-12-25] MEDS: PIPERACILLIN/TAZOBACTAM 3.375 GM in IV NORMAL SALINE 50ML 50 ML IV SCH ×2 (12:15→17:41)
[2019-12-25 15:00] VITALS: BP 138/74
[2019-12-25 19:00] VITALS: BP 131/59
[2019-12-25] MEDS: ENOXAPARIN 40 MG/0.4 ML SYRINGE. SQ SCH (21:38)
[2019-12-25 22:44] VITALS: BP 128/54
[2019-12-26] MEDS: PIPERACILLIN/TAZOBACTAM 3.375 GM in IV NORMAL SALINE 50ML 50 ML IV SCH ×3 (00:04→12:13)
[2019-12-26 03:00] VITALS: BP 109/48
[2019-12-26 07:00] VITALS: BP 140/76
[2019-12-26] MEDS: MULTIVITAMIN with MINERAL TABLET. PO SCH (07:56)
[2019-12-26] MEDS: LACTOBACILLUS RHAMNOSUS GG 1 CAPSULE. PO SCH (07:56)
[2019-12-26] MEDS: ASCORBIC ACID 500 MG TABLET PO SCH (07:57)
[2019-12-26] MEDS: levETIRAcetam 250 MG TABLET PO SCH (07:57)
--- NOTE | 2019-12-26 09:00 | PDOC ---
Infectious Disease Note Subjective Subjective says feeling better ROS ROS no n/v/d/ Vital Sign Vital Signs Vital Signs Date Time Temp Pulse Resp B/P (MAP) Pulse Ox O2 Delivery O2 Flow Rate FiO2 12/26/19 07:00 97.9 83 18 140/76 (97) 97 Room Air 97.9 Physical Exam PHYSICAL EXAM CONSTITUTIONAL: He is in bed He is in no acute distress. He is pleasant. in bed and ate HEENT: He has got normal conjunctivae. Oral cavity, pharynx is clear. He has poor dentition. NECK: Supple, no JVD. He has got well-healed scar in the back. LUNGS: Decreased in bases. HEART: S1, S2. ABDOMEN: Soft. No guarding, no rebound. GENITOURINARY: Mark is in place. EXTREMITIES: Without clubbing, cyanosis. He has some increase discomfort and edema in RUE - slight better. He has some superficial wounds on the sacral area, also has a blister of his left knee and deep tissue injury to his left heel, but no gross signs of any infection. NEUROLOGIC: He answers questions, but is confused, moves all extremities. PSYCHIATRIC: Affect is very pleasant. Labs Micro BLOOD CULTURE LC Final Final GRAM NEGATIVE RODS FINAL ID= [PROTEUS VULGARIS GROUP] PROTEUS VULGARIS GROUP ANTIMICROBIAL SUSCEPTIBILITY Final Comment NEG INNA 56 PROTEUS VULGARIS GROUP ANTIBIOTIC RESULT INTERPRETATION AMPICILLIN/SULBACTAM <=4/2 S AMIKACIN <=16 S AMPICILLIN >16 R AMOXICILLIN/K CLAVULANATE <=8/4 S AZTREONAM <=4 S CEFTRIAXONE <=1 S CEFTAZIDIME 4 S CEFOTAXIME <=2 S CEFOXITIN <=8 S CIPROFLOXACIN <=0.25 S CEFEPIME <=2 S CEFUROXIME >16 R ERTAPENEM <=0.5 S GENTAMICIN <=2 S LEVOFLOXACIN <=0.5 S MEROPENEM <=1 S PIPERACILLIN/TAZOBACTAM <=8 S TRIMETHOPRIM/SULFAMETHOXAZOLE <=0.5/9.5 S TETRACYCLINE >8 R TOBRAMYCIN <=2 S Unless otherwise specified, Testing Performed by: [address] [address] For Inquires, the Physician may contact the Microbiology department at [phone] Objective Assessment Fever - thrombus RUE swelling - supperficial thrombus Proteus bacteremia 12/17 - POA - per micro Epilepsy Multiple wounds Rhabdo - better Dementia Plan Plan of Care Repeat Blood cults neg zosyn,, change to po augmentin for d/c D/w nursing ANDREIA METZGER MD Dec 26, 2019 09:00
--- NOTE | 2019-12-26 10:02 | NUR ---
SW following. Discussed with RN, pt did not have any fevers overnight. IV abx being switched to oral abx. Plan for discharge to [facility] today. SW awaiting discharge orders. Addendum: 12/26/19 at 1400 by NILDA LOMELI Pt discharging to [facility] today with [facility] transportation at 1430. RN notified. No further SW needs.
[2019-12-26 10:32] VITALS: BP 121/75
--- NOTE | 2019-12-26 11:00 | PDOC ---
PROGRESS NOTES Assessment Problems Medical Problems: (1) Fall Status: Acute (2) Rhabdomyolysis Status: Acute (3) Seizure Status: Acute Epilepsy Rhabdomyolysis, he has had this before, Resolved, CPK 92 on 12/23. Suspect dementia Alcoholism Positive sleep study for sleep apnea on 09/21/18, doubt he would be a good candidate for CPAP Bacteremia, Proteus Fever possibly due to right upper extremity supperficial thrombus, afebrile times 24 hours Plan Levetiracetam Abstinence from alcohol Discharging to [facility] Follow-up with neurology as needed Subjective No complaints Objective Vital Signs Date Time Temp Pulse Resp B/P (MAP) Pulse Ox O2 Delivery O2 Flow Rate FiO2 12/26/19 10:32 97.8 84 18 121/75 (90) 97 Room Air 97.8 Intake and Output 12/26/19 07:00 Intake Total 600 ml Output Total 3851 ml Balance -3251 ml Intake Oral 600 ml Output Urine Total 3850 ml Stool Total 1 ml PHYSICAL EXAM Alert. Oriented to place and person, does not know date. PERRL. EOMI. CN: no focal findings. Muscle tone: normal. Muscle strength: 4/5 DTR: 2+ Plantar reflex: flexor Gait: not examined in bed. Sensory exam: no abnormal findings. No cerebellar signs elicited. Review of Relevant I have reviewed the following items adwoa (where applicable) has been applied. Labs Microbiology 12/24/19 Blood Culture - Preliminary, Resulted NO GROWTH AFTER 2 DAYS Medications Current Medications Sodium Chloride 1,000 ml @ 1,000 mls/hr 1X ONCE IV Last administered on 12/18/19at 15:37; Start 12/18/19 at 14:15; Stop 12/18/19 at 15:14; Status DC Sodium Chloride 1,000 ml @ 1,000 mls/hr 1X ONCE IV Last administered on 12/17at 20:06; Start 12/18/19 at 17:30; Stop 12/18/19 at 18:29; Status DC Sodium Chloride 1,000 ml @ 1,000 mls/hr 1X ONCE IV Last administered on 12/18/19at 17:55; Start 12/18/19 at 17:30; Stop 12/18/19 at 18:29; Status DC Ondansetron HCl (Zofran) 4 mg PRN Q4HRS PRN IV NAUSEA/VOMITING 1ST CHOICE Last administered on 12/22/19at 14:25; Start 12/18/19 at 23:45 Acetaminophen (Tylenol) 650 mg PRN Q4HRS PRN PO TEMP OVER 100.4F Last administered on 12/22/19at 03:08; Start 12/18/19 at 23:45 Enoxaparin Sodium (Lovenox 40mg Syringe) 40 mg QHS SQ Last administered on 12/25/19at 21:38; Start 12/18/19 at 23:45 Levetiracetam (Keppra) 750 mg BID PO Last administered on 12/26/19 07:57; Start 12/19/19 at 00:00 Aspirin (Vicente Aspirin) 325 mg PRN BID PRN PO MILD PAIN 1-3; Start 12/19/19 at 00:00 Sodium Chloride 1,000 ml @ 75 mls/hr 1X ONCE IV Last administered on 12/19/19at 00:05; Start 12/19/19 at 00:30; Stop 12/19/19 at 13:51; Status DC Sodium Chloride 1,000 ml @ 150 mls/hr Q6H40M IV Last administered on 12/24/19at 06:12; Start 12/19/19 at 08:42; Stop 12/24/19 at 09:36; Status DC Multivitamins (Thera M Plus) 1 tab DAILY PO Last administered on 12/26/19at 07:56; Start 12/20/19 at 09:00 Ascorbic Acid (Vitamin C) 500 mg DAILY PO Last administered on 12/26/19 07:57; Start 12/20/19 at 09:00 Cefepime HCl (Maxipime) 1 gm Q12HR IVP Last administered on 12/22/19at 07:56; Start 12/20/19 at 10:30; Stop 12/22/19 at 12:03; Status DC Lactobacillus Rhamnosus (Culturelle) 1 cap BID PO Last administered on 12/26/19at 07:56; Start 12/21/19 at 21:00 Ceftriaxone Sodium (Rocephin) 2 gm Q24H IVP Last administered on 12/24/19at 13:46; Start 12/22/19 at 13:00; Stop 12/25/19 at 09:20; Status DC Piperacillin Sod/ Tazobactam Sod 3.375 gm/Sodium Chloride 50 ml @ 100 mls/hr Q6HRS IV Last administered on 12/26/19at 06:30; Start 12/25/19 at 12:00 Active Scripts Active Reported Tylenol (Acetaminophen) 325 Mg Tablet 650 Mg PO Q6HRS Keppra (Levetiracetam) 750 Mg Tablet 750 Mg PO BID Vitals/I & O Vital Sign - Last 24 Hours 12/25/19 12/25/19 12/25/19 12/25/19 11:00 15:00 19:00 20:00 Temp 99.2 89.9 99.8 99.2 89.9 99.8 Pulse 80 86 88 Resp 16 16 16 B/P (MAP) 142/70 (94) 138/74 (95) 131/59 (83) Pulse Ox 96 94 97 O2 Delivery Room Air Room Air Room Air Room Air 12/25/19 12/26/19 12/26/19 12/26/19 22:44 03:00 07:00 08:00 Temp 98.9 98.7 97.9 98.9 98.7 97.9 Pulse 87 81 83 Resp 16 16 18 B/P (MAP) 128/54 (78) 109/48 (68) 140/76 (97) Pulse Ox 98 93 97 O2 Delivery Room Air Room Air Room Air Room Air 12/26/19 10:32 Temp 97.8 97.8 Pulse 84 Resp 18 B/P (MAP) 121/75 (90) Pulse Ox 97 O2 Delivery Room Air Intake and Output 12/25/19 12/25/19 12/26/19 15:00 23:00 07:00 Intake Total 600 ml Output Total 2001 ml 900 ml 950 ml Balance -1401 ml -900 ml -950 ml Justicifation of Admission Dx: Justifications for Admission: Justification of Admission Dx: Yes Acute Renal Failure: 75% Reduction in GFR Altered Mental Status: Altered Mental Status CHRISTIAN BALL MD Dec 26, 2019 11:00
--- NOTE | 2019-12-26 11:39 | SNU/HH DC ---
DISCHARGE ORDERS DISCHARGE INFORMATION: FINAL DIAGNOSIS Problems Medical Problems: (1) Fall Status: Acute (2) Rhabdomyolysis Status: Acute (3) Seizure Status: Acute CONDITION ON DISCHARGE: Stable CODE STATUS: Code Status: Full GROUP HOME: SNF STAY <30 DAYS: Yes HOSPICE: HOSPICE: No HOSPICE EVAL & TREAT: No LTAC: ADMIT TO LTAC: No POST DISCHARGE ORDERS: ACTIVITY ORDERS: Activity as tolerated WEIGHT BEARING STATUS: Other, see below DIET AFTER DISCHARGE: Cardiac WOUND/INCISION CARE: No wound care needed CHECKS AFTER DISCHARGE: CHECKS AFTER DISCHARGE: Check blood press - daily TREATMENT/EQUIPMENT ORDERS: ADAPTIVE EQUIPMENT NEEDED: None Physical Therapy For: Evalulation/Treatment Occupational Therapy For: Evaluation/Treatment Speech Language Pathology For: Evaluation/Treatment DISCHARGE MEDICATIONS: Home Meds Reported Medications Acetaminophen (TYLENOL) 325 Mg Tablet, 650 MG PO Q6HRS, TAB 2 Levetiracetam (KEPPRA) 750 Mg Tablet, 750 MG PO BID, TAB 06/07/17 TREVOR ISABEL III DO Dec 26, 2019 11:39
--- NOTE | 2019-12-26 12:17 | DS ---
DATE OF DISCHARGE: 12/26/2019 ADMISSION DIAGNOSIS: Fall with rhabdomyolysis and dehydration. DISCHARGE DIAGNOSES: Resolving dehydration, resolving rhabdomyolysis. HOSPITAL COURSE: The patient is a pleasant 84-year-old male who presented with a fall and weakness, was noted to have elevated CPK levels consistent with rhabdomyolysis. We admitted the patient. We tracked his rhabdo. We gave him fluids and overall he is doing better. I saw and examined him today. He is at his baseline. We will plan to discharge to shelter. DISPOSITION: pen[facility]entiary. ACTIVITY: As tolerated. DIET: Low sodium. MEDICATIONS: Please see the MRAD. TOTAL TIME: 36 minutes. TREVOR ISABEL DO DR: MARCOS/hawa JOB#: [id number] / [id number]
== END 2019-12-26 14:40 | DRG 557 ==
LOC: ER 14:08 → 4 NORTH 21:06
PROVIDERS: ADMIT Internal Medicine; ATTEND Internal Medicine
PROC: 05HY33Z Insertion of Infusion Device into Upper Vein, Percutaneous Approach (ICD-10-PCS; principal; 2019-12-18)
DX: M62.82 Rhabdomyolysis (principal); E43 Unspecified severe protein-calorie malnutrition; R78.81 Bacteremia; Z16.23 Resistance to quinolones and fluoroquinolones; I82.611 Acute embolism and thrombosis of superficial veins of right upper extremity; G40.909 Epilepsy, unspecified, not intractable, without status epilepticus; B96.4 Proteus (mirabilis) (morganii) as the cause of diseases classified elsewhere; B96.89 Other specified bacterial agents as the cause of diseases classified elsewhere; E86.0 Dehydration; F03.90 Unspecified dementia, unspecified severity, without behavioral disturbance, psychotic disturbance, mood disturbance, and anxiety; L89.90 Pressure ulcer of unspecified site, unspecified stage; Z96.642 Presence of left artificial hip joint; G47.33 Obstructive sleep apnea (adult) (pediatric); K21.9 Gastro-esophageal reflux disease without esophagitis; W18.39XA Other fall on same level, initial encounter; K59.00 Constipation, unspecified; Y92.009 Unspecified place in unspecified non-institutional (private) residence as the place of occurrence of the external cause; Z20.828 Contact with and (suspected) exposure to other viral communicable diseases; Z86.73 Personal history of transient ischemic attack (TIA), and cerebral infarction without residual deficits; Z87.891 Personal history of nicotine dependence; Y93.89 Activity, other specified; Y99.8 Other external cause status; Z68.29 Body mass index [BMI] 29.0-29.9, adult; Z91.14 Patient's other noncompliance with medication regimen
CPT/HCPCS: 36415; 36556; 36600; 70450; 71045; 80048; 80053; 81001; 82550; 82805; 83605; 83735; 84484; 85007; 85025; 87040; 87205; 93005; 93306; 93971; J0692; J0696; J1650; J2405; J2543; J7030; 97110-GP; 97116-GP; 97530-GO; 97535-GO; 99285-25; G0378; U0003-CS

== ENCOUNTER 2020-01-12 14:02 | Inpatient (IN) | payer MEDICARE ==
[~2020-01-12] VITALS: Ht 175.3 cm; Wt 97.7 kg
[2020-01-12 15:00] VITALS: BP_SYST 113; BP_SYST 156; BP_DIAS 61; BP_DIAS 73
[2020-01-12] MEDS ORDERED: DOCUSATE SODIUM 100 MG CAPSULE. PO PRN (16:45)
[2020-01-12] MEDS ORDERED: ONDANSETRON PF 4 MG/2 ML VIAL. IV PRN (16:45)
[2020-01-12] MEDS ORDERED: ALBUTEROL SULFATE 2.5 MG/3 ML NEBU. NEB PRN (16:45)
[2020-01-12] MEDS ORDERED: ZOLPIDEM 5 MG TABLET. PO PRN (16:45)
[2020-01-12] MEDS ORDERED: guaiFENesin ORAL 200 MG/10 ML LIQUID. PO PRN (16:45)
[2020-01-12] MEDS ORDERED: ACETAMINOPHEN 325 MG TABLET. PO PRN (16:45)
[2020-01-12] MEDS ORDERED: VANCOMYCIN 2 GM in IV NORMAL SALINE 500ML BAG 500 ML IV ONE (17:00)
--- NOTE | 2020-01-12 17:00 | PDOC1 ---
History and Physical Date of Admission Date of Admission 01/12/2020 Identification/Chief Complaint Chief Complaint Pressure wound to the sacral region left lateral knee and left heel Source Source: Chart review, Patient History of Present Illness History of Present Illness Patient is an 84-year-old gentleman with past medical history of epilepsy and obstructive sleep apnea GERD and anemia history of alcoholism seems to have also dementia reported who comes from [facility] for referral to Dr. Crawley. Apparently the patient had an attempt bedside debridement of his sacral pressure wound by wound care nevertheless the depth was concerning to the provider and the amount of nonviable tissue reason why we were asked to admit directly for surgical debridement patient also has a stage II pressure wound to the left lateral knee which is healed has also a deep tissue injury to the left heel and the recommendations were to change every 3 days or as needed for dressing got loose or saturated recommendation was for heel medics boot for effective offloading and foot rest for wheelchair to void patient self-propelling, at the time of my evaluation the patient is in no acute distress. Patient does give me a history of falling at home after having a seizure. Patient was found by his neighbor and apparently he had developed the pressure wound as a consequence of this fall since he lay on the floor approximately 2 days. He was discharged to [facility] for rehabilitation from where he is being referred again for further evaluation and treatment. At the time my evaluation the patient is in no acute distress is a poor historian definitely has a cognitive impairment. He does respond to questions appropriately though he does not have acute pain. Patient is quite hungry at the time of my evaluation no concerns were voiced during my history Past Medical History Cardiovascular: Other Pulmonary: Other CENTRAL NERVOUS SYSTEM: Seizure, Other GI: GERD Heme/Onc: Anemia NOS Psych: Addictions Renal/: Urinary Incontinence Past Surgical History Past Surgical History: Total hip replacement, Other Family History Family History: Family History Unknown Social History Smoke: No ALCOHOL: none Drugs: None Current Medications Current Medications Current Medications Medications (Trade) Dose Ordered Sig/Sriram Start Time Stop Time Status Last Admin Dose Admin Acetaminophen (Tylenol) 650 mg PRN Q4HRS PRN 01/12/20 16:45 UNV Albuterol Sulfate (Ventolin Neb Soln) 2.5 mg PRN Q4HRS PRN 01/12/20 16:45 UNV Docusate Sodium (Colace) 100 mg PRN BID PRN 9/11/20 16:45 UNV Enoxaparin Sodium (Lovenox 40mg Syringe) 40 mg Q24H 01/12/20 16:45 UNV Guaifenesin (Robitussin) 200 mg PRN Q4HRS PRN 01/12/20 16:45 UNV Ondansetron HCl (Zofran) 4 mg PRN Q4HRS PRN 01/12/20 16:45 UNV Piperacillin Sod/ Tazobactam Sod 3.375 gm/Sodium Chloride 50 ml @ 100 mls/hr Q6HRS 01/12/20 18:00 UNV Vancomycin HCl (Vanco Per Pharmacy) 1 each PRN DAILY PRN 01/12/20 16:45 UNV Zolpidem Tartrate (Ambien) 5 mg PRN QHS PRN 01/12/20 16:45 UNV Allergies Allergies Allergies Coded Allergies Type Severity Reaction Last Updated Verified No Known Drug Allergies 07/30/14 No ROS Review of System CONSTITUTIONAL: No fever or chills EYES: No recent changes SKIN: No rash or itching CARDIOVASCULAR: No chest pain, syncope, palpitations, or edema RESPIRATORY: No SOB or cough GASTROINTESTINAL: No nausea, vomiting or abdominal pain NEUROLOGICAL: No headaches or weakness ENDOCRINE: No cold or heat intolerance GENITOURINARY: No urgency or frequency of urination MUSCULOSKELETAL: No back pain or joint pain LYMPHATICS: No enlarged lymph nodes PSYCHIATRIC: No anxiety or depression Physical Exam Physical Exam GEN.: No apparent distress. Alert and oriented in person HEENT: Head is normocephalic, atraumatic NECK: Supple. LUNGS: Clear to auscultation. HEART: RRR, S1, S2 present. Peripheral pulses intact ABDOMEN: Soft, nontender. Positive bowel sounds. EXTREMITIES: Without any cyanosis. NEUROLOGIC: Normal speech, normal tone PSYCHIATRIC: Normal affect, normal mood. SKIN: Decubitus ulcers as described in the HPI Vitals Vitals Vital Signs Date Time Temp Pulse Resp B/P (MAP) Pulse Ox O2 Delivery O2 Flow Rate FiO2 01/12/20 15:00 98.3 84 16 113/61 (78) 98 Room Air 98.3 VTE Prophylaxis Ordered VTE Prophylaxis Devices: No VTE Pharmacological Prophylaxi: Yes Assessment/Plan Assessment/Plan Unstageable sacral decubitus ulcer Left heel ulcer seems to be stage II Stage II left lateral knee wound history of seizure disorder History of GERD History of alcohol abuse History of left total hip replacement History of pacemaker Plan: Resume home medications once available for review Cardiac diet Seizure precautions Consult surgery We will start broad-spectrum antibiotics We will order initial labs that will include ESR and CRP We will order x-ray for his left heel We will defer ordering imaging studies to her surgical technology instructor regarding his sacral wound. Pain management DVT prophylaxis with Lovenox Further recommendations based on the clinical course Justifications for Admission Other Justification KIERSTEN PONCE MD Jan 12, 2020 17:00
[2020-01-12] MEDS ORDERED: ASCO500T4 PO (18:02)
[2020-01-12] MEDS ORDERED: MULT-154 PO (18:02)
[2020-01-12] MEDS ORDERED: TAMS0.4C97 PO (18:02)
[2020-01-12] MEDS: PIPERACILLIN/TAZOBACTAM 3.375 GM in IV NORMAL SALINE 50ML 50 ML IV SCH (18:44)
[2020-01-12 19:00] VITALS: BP 117/64
[2020-01-12] MEDS: VANCOMYCIN PER PHARMACY MC PRN (20:41)
--- NOTE | 2020-01-12 20:45 | NUR ---
Pharmacy Vancomycin Dosing Note S: Consulted to monitor and dose vancomycin started 01/12/20. O: YONATHAN RIVERA is a 84 year old M with DECUB ULCERS. Other Antibiotics: ZOSYN Creatinine Clearance: 56 mL/min Tmax (past 24 hours): 98.3 Vancomycin Dosing: Dosing Weight: Adjusted Target Trough: 10-20 A: Based on: VANCO dosing guidelines P: 1. Begin Vancomycin 2000mg LOAD dose, then 1250 mg IV q24h 2. Follow up Trough level on 01/14/20 at 1930 3. Pharmacy will continue to monitor, follow and adjust therapy as needed. MELVINA HILL RPH, 01/12/20 [id number]
[2020-01-12 21:26] LABS: ALBUMIN 2.4 g/dL (3.4-5.0); ALBUMIN/GLOBULIN RATIO 0.6 (1.0-1.7); C-REACTIVE PROTEIN 39.1 mg/L (0-3.3); CALCIUM 8.3 mg/dL (8.5-10.1); GFR 85.9; POTASSIUM 4.5 mmol/L (3.5-5.1); TOTAL BILIRUBIN 0.2 mg/dL (0.2-1.0); TOTAL PROTEIN 6.6 g/dL (6.4-8.2)
[2020-01-12 21:28] LABS: PROTHROMBIN TIME PATIENT 13.3 SEC (11.7-14.0)
[2020-01-12 21:32] LABS: BASO % 1 % (0-3); EOS # 0.3 x10^3/uL (0.0-0.7); EOS % 5 % (0-3); HEMATOCRIT 34.6 % (39.0-53.0); HEMOGLOBIN 12.1 g/dL (13.0-17.5); LYMPH # 1.4 x10^3/uL (1.0-4.8); LYMPH % 26 % (24-48); MEAN CORPUSCULAR HEMOGLOBIN 29 pg (25-35); MEAN CORPUSCULAR HGB CONC 35 g/dL (31-37); MEAN CORPUSCULAR VOLUME 83 fL (79-100); MONO # 0.9 x10^3/uL (0.0-1.1); MONO % 16 % (0-9); NEUT % 53 % (31-73); PLATELET COUNT 218 x10^3/uL (140-400); RED BLOOD COUNT 4.15 x10^6/uL (4.30-5.70); WHITE BLOOD COUNT 5.6 x10^3/uL (4.0-11.0)
[2020-01-12] MEDS: ENOXAPARIN 40 MG/0.4 ML SYRINGE. SQ SCH (21:47)
--- NOTE | 2020-01-12 22:04 | RAD ---
Examination: FOOT BILAT 3V History: osteomyelitis Comparison/Correlation: None Findings: 3 views of right foot and 3 views of the left foot were obtained. Osteopenia noted. Degenerative narrowing of interphalangeal joints corresponding patient's age noted. Arthrodesis of the talocalcaneal articulation is noted. There is a radiopaque pin associated with the talocalcaneal articulation. Additional pain involving the calcaneus noted. Sclerotic density involving the distal left tibial diametaphyseal region which probably represents osteochondroma or old infarct noted. Small left calcaneal spur is present. No acute fracture or bone destruction. Impression: No acute processes. Consider further evaluation if osteomyelitis is a persistent concern. Electronically signed by: Sigifredo Yu MD (01/12/2020 10:01 PM) [facility]
[2020-01-12 23:00] VITALS: BP 99/54
[2020-01-13] MEDS: PIPERACILLIN/TAZOBACTAM 3.375 GM in IV NORMAL SALINE 50ML 50 ML IV SCH ×4 (01:17→18:05)
[2020-01-13 03:00] VITALS: BP 106/46
[2020-01-13 07:00] VITALS: BP 108/59
[2020-01-13] MEDS: VANCOMYCIN PER PHARMACY MC PRN (10:59)
[2020-01-13 11:00] VITALS: BP 110/62
[2020-01-13] MEDS ORDERED: ACETAMINOPHEN 325 MG TABLET. PO PRN (12:00)
[2020-01-13] MEDS: ASCORBIC ACID 500 MG TABLET PO SCH (12:37)
[2020-01-13] MEDS: MULTIVITAMIN with MINERAL TABLET. PO SCH (12:37)
[2020-01-13] MEDS: levETIRAcetam 250 MG TABLET PO SCH ×2 (12:37→21:32)
[2020-01-13] MEDS: TAMSULOSIN 0.4 MG CAP.ER.24H. PO SCH (12:37)
[2020-01-13 15:00] VITALS: BP 106/72
--- NOTE | 2020-01-13 15:08 | PDOC2 ---
CONSULT Date of Consult Date of Consult DATE: 01/13/20 TIME: 15:04 Reason for Consult Reason for Consult: sacral decub ulcer Referring Physician Referring Physician: Dr. Barrios Identification/Chief Complaint Chief Complaint none Source Source: Chart review, Patient History of Present Illness Reason for Visit: 84 yo M with recent history of fall. Noted to have sacral decub ulcer without significant improvement. Pt currently without c/o and lavon diet. Past Medical History Cardiovascular: Other Pulmonary: Other CENTRAL NERVOUS SYSTEM: Seizure, Other GI: GERD Heme/Onc: Anemia NOS Psych: Addictions Renal/: Urinary Incontinence Past Surgical History Past Surgical History: Total hip replacement, Other Family History Family History: Family History Unknown Social History No ALCOHOL: none Drugs: None Lives: Prison Current Medications Current Medications Current Medications Ondansetron HCl (Zofran) 4 mg PRN Q4HRS PRN IV NAUSEA/VOMITING Last administered on 01/13/20at 00:43; Start 01/12/20 at 16:45 Zolpidem Tartrate (Ambien) 5 mg PRN QHS PRN PO INSOMNIA; Start 01/12/20 at 16:45 Acetaminophen (Tylenol) 650 mg PRN Q4HRS PRN PO TEMP OVER 100.4F OR MILD PAIN; Start 01/12/20 at 16:45; Stop 01/13/20 at 09:28; Status DC Docusate Sodium (Colace) 100 mg PRN BID PRN PO HARD STOOLS; Start 01/12/20 at 16:45 Albuterol Sulfate (Ventolin Neb Soln) 2.5 mg PRN Q4HRS PRN NEB SHORTNESS OF BREATH; Start 01/12/20 at 16:45 Guaifenesin (Robitussin) 200 mg PRN Q4HRS PRN PO COUGH; Start 01/12/20 at 16:45 Enoxaparin Sodium (Lovenox 40mg Syringe) 40 mg Q24H SQ Last administered on 01/12/20at 21:47; Start 01/12/20 at 21:00 Vancomycin HCl (Vanco Per Pharmacy) 1 each PRN DAILY PRN MC SEE COMMENTS Last administered on 01/13/20at 10:59; Start 01/12/20 at 16:45 Piperacillin Sod/ Tazobactam Sod 3.375 gm/Sodium Chloride 50 ml @ 100 mls/hr Q6HRS IV Last administered on 01/13/20at 12:38; Start 01/12/20 at 18:00 Vancomycin HCl 2 gm/Sodium Chloride 500 ml @ 250 mls/hr 1X ONCE IV Last administered on 01/12/20at 19:37; Start 01/12/20 at 17:00; Stop 01/12/20 at 18:59; Status DC Vancomycin HCl 1.25 gm/Sodium Chloride 250 ml @ 167 mls/hr Q24H IV ; Start 01/13/20 at 20:00 Vancomycin HCl (Vancomycin Trough Level) 1 each 1X ONCE MC ; Start 01/14/20 at 19:30; Stop 01/14/20 at 19:31 Acetaminophen (Tylenol) 650 mg PRN Q6HRS PRN PO MILD PAIN / TEMP > 100.3'F; Start 01/13/20 at 12:00 Ascorbic Acid (Vitamin C) 500 mg DAILY PO Last administered on 01/13/20at 12:37; Start 01/13/20 at 09:00 Tamsulosin HCl (Flomax) 0.4 mg DAILY PO Last administered on 01/13/20at 12:37; Start 01/13/20 at 09:30 Levetiracetam (Keppra) 750 mg BID PO Last administered on 01/13/20at 12:37; Start 01/13/20 at 09:30 Multivitamins (Thera M Plus) 1 tab DAILY PO Last administered on 01/13/20at 12:37; Start 01/13/20 at 09:30 Lactobacillus Rhamnosus (Culturelle) 1 cap BID PO ; Start 01/13/20 at 21:00 Active Scripts Active Reported One-A-Day Essential (Multivitamin) 1 Each Tablet 1 Tab PO DAILY 30 Days Vitamin C (Ascorbic Acid) 500 Mg Tablet 500 Mg PO DAILY Flomax (Tamsulosin Hcl) 0.4 Mg Cap.er.24h 1 Cap PO DAILY Tylenol (Acetaminophen) 325 Mg Tablet 650 Mg PO Q6HRS Keppra (Levetiracetam) 750 Mg Tablet 750 Mg PO BID Allergies Allergies: Coded Allergies: No Known Drug Allergies (Unverified , 07/30/14) ROS Review of System difficult to obtain as pt poor historian but denies significant complaint. Physical Exam General: Alert, Cooperative, No acute distress HEENT: Atraumatic Lungs: Normal air movement Extremities: Other (some superficial knee ulcer, but clean, wound pictures of sacral ulcer with fibrinous debris) Vitals VITALS Vital Signs Date Time Temp Pulse Resp B/P (MAP) Pulse Ox O2 Delivery O2 Flow Rate FiO2 01/13/20 11:00 98.0 86 18 110/62 (78) 98 Room Air 98.0 Labs Labs Laboratory Tests Test 01/12/20 20:40 White Blood Count 5.6 x10^3/uL (4.0-11.0) Red Blood Count 4.15 x10^6/uL (4.30-5.70) Hemoglobin 12.1 g/dL (13.0-17.5) Hematocrit 34.6 % (39.0-53.0) Mean Corpuscular Volume 83 fL (79-100) Mean Corpuscular Hemoglobin 29 pg (25-35) Mean Corpuscular Hemoglobin Concent 35 g/dL (31-37) Red Cell Distribution Width 15.0 % (11.5-14.5) Platelet Count 218 x10^3/uL (140-400) Neutrophils (%) (Auto) 53 % (31-73) Lymphocytes (%) (Auto) 26 % (24-48) Monocytes (%) (Auto) 16 % (0-9) Eosinophils (%) (Auto) 5 % (0-3) Basophils (%) (Auto) 1 % (0-3) Neutrophils # (Auto) 3.0 x10^3/uL (1.8-7.7) Lymphocytes # (Auto) 1.4 x10^3/uL (1.0-4.8) Monocytes # (Auto) 0.9 x10^3/uL (0.0-1.1) Eosinophils # (Auto) 0.3 x10^3/uL (0.0-0.7) Basophils # (Auto) 0.0 x10^3/uL (0.0-0.2) Prothrombin Time 13.3 SEC (11.7-14.0) Prothromb Time International Ratio 1.1 (0.8-1.1) Sodium Level 137 mmol/L (136-145) Potassium Level 4.5 mmol/L (3.5-5.1) Chloride Level 104 mmol/L (98-107) Carbon Dioxide Level 29 mmol/L (21-32) Anion Gap 4 (6-14) Blood Urea Nitrogen 24 mg/dL (8-26) Creatinine 1.0 mg/dL (0.7-1.3) Estimated GFR (Cockcroft-Gault) 85.9 BUN/Creatinine Ratio 24 (6-20) Glucose Level 109 mg/dL (70-99) Calcium Level 8.3 mg/dL (8.5-10.1) Total Bilirubin 0.2 mg/dL (0.2-1.0) Aspartate Amino Transf (AST/SGOT) 37 U/L (15-37) Alanine Aminotransferase (ALT/SGPT) 72 U/L (16-63) Alkaline Phosphatase 68 U/L (46-116) C-Reactive Protein, Quantitative 39.1 mg/L (0-3.3) Total Protein 6.6 g/dL (6.4-8.2) Albumin 2.4 g/dL (3.4-5.0) Albumin/Globulin Ratio 0.6 (1.0-1.7) Thyroid Stimulating Hormone (TSH) 3.944 uIU/mL (0.358-3.74) Laboratory Tests Test 01/12/20 20:40 White Blood Count 5.6 x10^3/uL (4.0-11.0) Red Blood Count 4.15 x10^6/uL (4.30-5.70) Hemoglobin 12.1 g/dL (13.0-17.5) Hematocrit 34.6 % (39.0-53.0) Mean Corpuscular Volume 83 fL (79-100) Mean Corpuscular Hemoglobin 29 pg (25-35) Mean Corpuscular Hemoglobin Concent 35 g/dL (31-37) Red Cell Distribution Width 15.0 % (11.5-14.5) Platelet Count 218 x10^3/uL (140-400) Neutrophils (%) (Auto) 53 % (31-73) Lymphocytes (%) (Auto) 26 % (24-48) Monocytes (%) (Auto) 16 % (0-9) Eosinophils (%) (Auto) 5 % (0-3) Basophils (%) (Auto) 1 % (0-3) Neutrophils # (Auto) 3.0 x10^3/uL (1.8-7.7) Lymphocytes # (Auto) 1.4 x10^3/uL (1.0-4.8) Monocytes # (Auto) 0.9 x10^3/uL (0.0-1.1) Eosinophils # (Auto) 0.3 x10^3/uL (0.0-0.7) Basophils # (Auto) 0.0 x10^3/uL (0.0-0.2) Prothrombin Time 13.3 SEC (11.7-14.0) Prothromb Time International Ratio 1.1 (0.8-1.1) Sodium Level 137 mmol/L (136-145) Potassium Level 4.5 mmol/L (3.5-5.1) Chloride Level 104 mmol/L (98-107) Carbon Dioxide Level 29 mmol/L (21-32) Anion Gap 4 (6-14) Blood Urea Nitrogen 24 mg/dL (8-26) Creatinine 1.0 mg/dL (0.7-1.3) Estimated GFR (Cockcroft-Gault) 85.9 BUN/Creatinine Ratio 24 (6-20) Glucose Level 109 mg/dL (70-99) Calcium Level 8.3 mg/dL (8.5-10.1) Total Bilirubin 0.2 mg/dL (0.2-1.0) Aspartate Amino Transf (AST/SGOT) 37 U/L (15-37) Alanine Aminotransferase (ALT/SGPT) 72 U/L (16-63) Alkaline Phosphatase 68 U/L (46-116) C-Reactive Protein, Quantitative 39.1 mg/L (0-3.3) Total Protein 6.6 g/dL (6.4-8.2) Albumin 2.4 g/dL (3.4-5.0) Albumin/Globulin Ratio 0.6 (1.0-1.7) Thyroid Stimulating Hormone (TSH) 3.944 uIU/mL (0.358-3.74) Images Images foot xr wnl Assessment/Plan Assessment/Plan sacral ulcer agree with wound care, will d/w them more fully may benefit from operative debridement vs vac Thanks for consult! MARICARMEN ROLDAN MD Jan 13, 2020 15:08
--- NOTE | 2020-01-13 15:18 | PDOC ---
PROGRESS NOTES Date of Service: DATE: 01/13/20 TIME: 15:14 Chief Complaint Chief Complaint Assessment/Plan Unstageable sacral decubitus ulcer Left heel ulcer seems to be stage II Stage II left lateral knee wound history of seizure disorder History of GERD History of alcohol abuse History of left total hip replacement History of pacemaker Plan: Resume home medications once available for review Cardiac diet Seizure precautions Consult surgery broad-spectrum antibiotics follow recommendations from director medical surgical Pain management DVT prophylaxis with Lovenox Further recommendations based on the clinical course History of Present Illness History of Present Illness 01/12 Patient lying in bed in no acute distress, he was urinating on his tray cover since he could not fing his urinal Patient's meds are reconciled and will restart especially his Flomax patient having trouble with urinary retention seems like. NO new complaints. Vitals Vitals Vital Signs Date Time Temp Pulse Resp B/P (MAP) Pulse Ox O2 Delivery O2 Flow Rate FiO2 01/13/20 11:00 98.0 86 18 110/62 (78) 98 Room Air 98.0 Physical Exam Physical Exam Physical Exam GEN.: No apparent distress. Alert and oriented in person HEENT: Head is normocephalic, atraumatic NECK: Supple. LUNGS: Clear to auscultation. HEART: RRR, S1, S2 present. Peripheral pulses intact ABDOMEN: Soft, nontender. Positive bowel sounds. EXTREMITIES: Without any cyanosis. NEUROLOGIC: Normal speech, normal tone PSYCHIATRIC: Normal affect, normal mood. SKIN: Decubitus ulcers as described in the HPI General: Alert, Cooperative, No acute distress Lungs: Clear Extremities: Other (some superficial knee ulcer, but clean, wound pictures of sacral ulcer with fibrinous debris) Labs LABS [facility] [address] [place], [place] [id number] IMAGING REPORT Signed PATIENT: YONATHAN RIVERA ACCOUNT: [id number] : 1935 LOCATION: [facility] AGE: 84 SEX: M EXAM STATUS: ADM IN ORD. PHYSICIAN: KIERSTEN PONCE MD REASON: osteomyelitis 406 PROCEDURE: FOOT BILAT 3V Examination: FOOT BILAT 3V History: osteomyelitis Comparison/Correlation: None Findings: 3 views of right foot and 3 views of the left foot were obtained. Osteopenia noted. Degenerative narrowing of interphalangeal joints corresponding patient's age noted. Arthrodesis of the talocalcaneal articulation is noted. There is a radiopaque pin associated with the talocalcaneal articulation. Additional pain involving the calcaneus noted. Sclerotic density involving the distal left tibial diametaphyseal region which probably represents osteochondroma or old infarct noted. Small left calcaneal spur is present. No acute fracture or bone destruction. Impression: No acute processes. Consider further evaluation if osteomyelitis is a persistent concern. Laboratory Tests Test 01/12/20 20:40 White Blood Count 5.6 x10^3/uL (4.0-11.0) Red Blood Count 4.15 x10^6/uL (4.30-5.70) Hemoglobin 12.1 g/dL (13.0-17.5) Hematocrit 34.6 % (39.0-53.0) Mean Corpuscular Volume 83 fL (79-100) Mean Corpuscular Hemoglobin 29 pg (25-35) Mean Corpuscular Hemoglobin Concent 35 g/dL (31-37) Red Cell Distribution Width 15.0 % (11.5-14.5) Platelet Count 218 x10^3/uL (140-400) Neutrophils (%) (Auto) 53 % (31-73) Lymphocytes (%) (Auto) 26 % (24-48) Monocytes (%) (Auto) 16 % (0-9) Eosinophils (%) (Auto) 5 % (0-3) Basophils (%) (Auto) 1 % (0-3) Neutrophils # (Auto) 3.0 x10^3/uL (1.8-7.7) Lymphocytes # (Auto) 1.4 x10^3/uL (1.0-4.8) Monocytes # (Auto) 0.9 x10^3/uL (0.0-1.1) Eosinophils # (Auto) 0.3 x10^3/uL (0.0-0.7) Basophils # (Auto) 0.0 x10^3/uL (0.0-0.2) Prothrombin Time 13.3 SEC (11.7-14.0) Prothromb Time International Ratio 1.1 (0.8-1.1) Sodium Level 137 mmol/L (136-145) Potassium Level 4.5 mmol/L (3.5-5.1) Chloride Level 104 mmol/L (98-107) Carbon Dioxide Level 29 mmol/L (21-32) Anion Gap 4 (6-14) Blood Urea Nitrogen 24 mg/dL (8-26) Creatinine 1.0 mg/dL (0.7-1.3) Estimated GFR (Cockcroft-Gault) 85.9 BUN/Creatinine Ratio 24 (6-20) Glucose Level 109 mg/dL (70-99) Calcium Level 8.3 mg/dL (8.5-10.1) Total Bilirubin 0.2 mg/dL (0.2-1.0) Aspartate Amino Transf (AST/SGOT) 37 U/L (15-37) Alanine Aminotransferase (ALT/SGPT) 72 U/L (16-63) Alkaline Phosphatase 68 U/L (46-116) C-Reactive Protein, Quantitative 39.1 mg/L (0-3.3) Total Protein 6.6 g/dL (6.4-8.2) Albumin 2.4 g/dL (3.4-5.0) Albumin/Globulin Ratio 0.6 (1.0-1.7) Thyroid Stimulating Hormone (TSH) 3.944 uIU/mL (0.358-3.74) Comment Review of Relevant I have reviewed the following items adwoa (where applicable) has been applied. Labs Laboratory Tests Test 01/12/20 20:40 White Blood Count 5.6 x10^3/uL (4.0-11.0) Red Blood Count 4.15 x10^6/uL (4.30-5.70) Hemoglobin 12.1 g/dL (13.0-17.5) Hematocrit 34.6 % (39.0-53.0) Mean Corpuscular Volume 83 fL (79-100) Mean Corpuscular Hemoglobin 29 pg (25-35) Mean Corpuscular Hemoglobin Concent 35 g/dL (31-37) Red Cell Distribution Width 15.0 % (11.5-14.5) Platelet Count 218 x10^3/uL (140-400) Neutrophils (%) (Auto) 53 % (31-73) Lymphocytes (%) (Auto) 26 % (24-48) Monocytes (%) (Auto) 16 % (0-9) Eosinophils (%) (Auto) 5 % (0-3) Basophils (%) (Auto) 1 % (0-3) Neutrophils # (Auto) 3.0 x10^3/uL (1.8-7.7) Lymphocytes # (Auto) 1.4 x10^3/uL (1.0-4.8) Monocytes # (Auto) 0.9 x10^3/uL (0.0-1.1) Eosinophils # (Auto) 0.3 x10^3/uL (0.0-0.7) Basophils # (Auto) 0.0 x10^3/uL (0.0-0.2) Prothrombin Time 13.3 SEC (11.7-14.0) Prothromb Time International Ratio 1.1 (0.8-1.1) Sodium Level 137 mmol/L (136-145) Potassium Level 4.5 mmol/L (3.5-5.1) Chloride Level 104 mmol/L (98-107) Carbon Dioxide Level 29 mmol/L (21-32) Anion Gap 4 (6-14) Blood Urea Nitrogen 24 mg/dL (8-26) Creatinine 1.0 mg/dL (0.7-1.3) Estimated GFR (Cockcroft-Gault) 85.9 BUN/Creatinine Ratio 24 (6-20) Glucose Level 109 mg/dL (70-99) Calcium Level 8.3 mg/dL (8.5-10.1) Total Bilirubin 0.2 mg/dL (0.2-1.0) Aspartate Amino Transf (AST/SGOT) 37 U/L (15-37) Alanine Aminotransferase (ALT/SGPT) 72 U/L (16-63) Alkaline Phosphatase 68 U/L (46-116) C-Reactive Protein, Quantitative 39.1 mg/L (0-3.3) Total Protein 6.6 g/dL (6.4-8.2) Albumin 2.4 g/dL (3.4-5.0) Albumin/Globulin Ratio 0.6 (1.0-1.7) Thyroid Stimulating Hormone (TSH) 3.944 uIU/mL (0.358-3.74) Laboratory Tests Test 01/12/20 20:40 White Blood Count 5.6 x10^3/uL (4.0-11.0) Red Blood Count 4.15 x10^6/uL (4.30-5.70) Hemoglobin 12.1 g/dL (13.0-17.5) Hematocrit 34.6 % (39.0-53.0) Mean Corpuscular Volume 83 fL (79-100) Mean Corpuscular Hemoglobin 29 pg (25-35) Mean Corpuscular Hemoglobin Concent 35 g/dL (31-37) Red Cell Distribution Width 15.0 % (11.5-14.5) Platelet Count 218 x10^3/uL (140-400) Neutrophils (%) (Auto) 53 % (31-73) Lymphocytes (%) (Auto) 26 % (24-48) Monocytes (%) (Auto) 16 % (0-9) Eosinophils (%) (Auto) 5 % (0-3) Basophils (%) (Auto) 1 % (0-3) Neutrophils # (Auto) 3.0 x10^3/uL (1.8-7.7) Lymphocytes # (Auto) 1.4 x10^3/uL (1.0-4.8) Monocytes # (Auto) 0.9 x10^3/uL (0.0-1.1) Eosinophils # (Auto) 0.3 x10^3/uL (0.0-0.7) Basophils # (Auto) 0.0 x10^3/uL (0.0-0.2) Prothrombin Time 13.3 SEC (11.7-14.0) Prothromb Time International Ratio 1.1 (0.8-1.1) Sodium Level 137 mmol/L (136-145) Potassium Level 4.5 mmol/L (3.5-5.1) Chloride Level 104 mmol/L (98-107) Carbon Dioxide Level 29 mmol/L (21-32) Anion Gap 4 (6-14) Blood Urea Nitrogen 24 mg/dL (8-26) Creatinine 1.0 mg/dL (0.7-1.3) Estimated GFR (Cockcroft-Gault) 85.9 BUN/Creatinine Ratio 24 (6-20) Glucose Level 109 mg/dL (70-99) Calcium Level 8.3 mg/dL (8.5-10.1) Total Bilirubin 0.2 mg/dL (0.2-1.0) Aspartate Amino Transf (AST/SGOT) 37 U/L (15-37) Alanine Aminotransferase (ALT/SGPT) 72 U/L (16-63) Alkaline Phosphatase 68 U/L (46-116) C-Reactive Protein, Quantitative 39.1 mg/L (0-3.3) Total Protein 6.6 g/dL (6.4-8.2) Albumin 2.4 g/dL (3.4-5.0) Albumin/Globulin Ratio 0.6 (1.0-1.7) Thyroid Stimulating Hormone (TSH) 3.944 uIU/mL (0.358-3.74) Medications Current Medications Ondansetron HCl (Zofran) 4 mg PRN Q4HRS PRN IV NAUSEA/VOMITING Last administered on 01/13/20at 00:43; Start 01/12/20 at 16:45 Zolpidem Tartrate (Ambien) 5 mg PRN QHS PRN PO INSOMNIA; Start 01/12/20 at 16:45 Acetaminophen (Tylenol) 650 mg PRN Q4HRS PRN PO TEMP OVER 100.4F OR MILD PAIN; Start 01/12/20 at 16:45; Stop 01/13/20 at 09:28; Status DC Docusate Sodium (Colace) 100 mg PRN BID PRN PO HARD STOOLS; Start 01/12/20 at 16:45 Albuterol Sulfate (Ventolin Neb Soln) 2.5 mg PRN Q4HRS PRN NEB SHORTNESS OF BREATH; Start 01/12/20 at 16:45 Guaifenesin (Robitussin) 200 mg PRN Q4HRS PRN PO COUGH; Start 01/12/20 at 16:45 Enoxaparin Sodium (Lovenox 40mg Syringe) 40 mg Q24H SQ Last administered on 01/12/20at 21:47; Start 01/12/20 at 21:00 Vancomycin HCl (Vanco Per Pharmacy) 1 each PRN DAILY PRN MC SEE COMMENTS Last administered on 01/13/20at 10:59; Start 01/12/20 at 16:45 Piperacillin Sod/ Tazobactam Sod 3.375 gm/Sodium Chloride 50 ml @ 100 mls/hr Q6HRS IV Last administered on 01/13/20at 12:38; Start 01/12/20 at 18:00 Vancomycin HCl 2 gm/Sodium Chloride 500 ml @ 250 mls/hr 1X ONCE IV Last administered on 01/12/20at 19:37; Start 01/12/20 at 17:00; Stop 01/12/20 at 18:59; Status DC Vancomycin HCl 1.25 gm/Sodium Chloride 250 ml @ 167 mls/hr Q24H IV ; Start 01/13/20 at 20:00 Vancomycin HCl (Vancomycin Trough Level) 1 each 1X ONCE MC ; Start 01/14/20 at 19:30; Stop 01/14/20 at 19:31 Acetaminophen (Tylenol) 650 mg PRN Q6HRS PRN PO MILD PAIN / TEMP > 100.3'F; Start 01/13/20 at 12:00 Ascorbic Acid (Vitamin C) 500 mg DAILY PO Last administered on 01/13/20at 12:37; Start 01/13/20 at 09:00 Tamsulosin HCl (Flomax) 0.4 mg DAILY PO Last administered on 01/13/20at 12:37; Start 01/13/20 at 09:30 Levetiracetam (Keppra) 750 mg BID PO Last administered on 01/13/20at 12:37; Start 01/13/20 at 09:30 Multivitamins (Thera M Plus) 1 tab DAILY PO Last administered on 01/13/20at 12:37; Start 01/13/20 at 09:30 Lactobacillus Rhamnosus (Culturelle) 1 cap BID PO ; Start 01/13/20 at 21:00 Active Scripts Active Reported One-A-Day Essential (Multivitamin) 1 Each Tablet 1 Tab PO DAILY 30 Days Vitamin C (Ascorbic Acid) 500 Mg Tablet 500 Mg PO DAILY Flomax (Tamsulosin Hcl) 0.4 Mg Cap.er.24h 1 Cap PO DAILY Tylenol (Acetaminophen) 325 Mg Tablet 650 Mg PO Q6HRS Keppra (Levetiracetam) 750 Mg Tablet 750 Mg PO BID Vitals/I & O Vital Sign - Last 24 Hours 01/12/20 01/12/20 01/12/20 01/13/20 19:00 20:19 23:00 03:00 Temp 98.7 98.2 98.7 98.7 98.2 98.7 Pulse 84 86 89 Resp 16 16 16 B/P (MAP) 117/64 (81) 99/54 (69) 106/46 (66) Pulse Ox 97 98 95 92 O2 Delivery Room Air Room Air Room Air Room Air 01/13/20 01/13/20 01/13/20 07:00 08:46 11:00 Temp 97.7 98.0 97.7 98.0 Pulse 84 86 Resp 18 18 B/P (MAP) 108/59 (75) 110/62 (78) Pulse Ox 98 98 O2 Delivery Room Air Room Air Room Air Intake and Output0 01/12/20 01/12/20 01/13/20 15:00 23:00 07:00 Output Total 925 ml Balance -925 ml Justicifation of Admission Dx: Justifications for Admission: Justification of Admission Dx: Yes Acute Renal Failure: 75% Reduction in GFR Altered Mental Status: Altered Mental Status KIERSTEN PONCE MD Jan 13, 2020 15:18
[2020-01-13 19:00] VITALS: BP 122/65
[2020-01-13] MEDS ORDERED: VANCOMYCIN 1.25 GM in IV NORMAL SALINE 250ML 250 ML IV SCH (20:00)
[2020-01-13] MEDS: LACTOBACILLUS RHAMNOSUS GG 1 CAPSULE. PO SCH (21:32)
[2020-01-13] MEDS: ENOXAPARIN 40 MG/0.4 ML SYRINGE. SQ SCH (21:33)
[2020-01-13 23:00] VITALS: BP 124/64
[2020-01-14] MEDS: PIPERACILLIN/TAZOBACTAM 3.375 GM in IV NORMAL SALINE 50ML 50 ML IV SCH ×4 (00:08→18:12)
[2020-01-14 03:00] VITALS: BP 122/64
[2020-01-14 07:00] VITALS: BP 109/68
[2020-01-14 07:22] LABS: CREATININE 1.1 mg/dL (0.7-1.3)
[2020-01-14 11:00] VITALS: BP 110/72
[2020-01-14] MEDS: TAMSULOSIN 0.4 MG CAP.ER.24H. PO SCH (11:53)
[2020-01-14] MEDS: ASCORBIC ACID 500 MG TABLET PO SCH (11:53)
[2020-01-14] MEDS: MULTIVITAMIN with MINERAL TABLET. PO SCH (11:53)
[2020-01-14] MEDS: LACTOBACILLUS RHAMNOSUS GG 1 CAPSULE. PO SCH ×2 (11:53→21:05)
[2020-01-14] MEDS: levETIRAcetam 250 MG TABLET PO SCH ×2 (11:53→21:05)
--- NOTE | 2020-01-14 12:03 | PDOC ---
PROGRESS NOTES Date of Service: DATE: 01/14/20 TIME: 12:02 Chief Complaint Chief Complaint Assessment/Plan Unstageable sacral decubitus ulcer Left heel ulcer seems to be stage II Stage II left lateral knee wound history of seizure disorder History of GERD History of alcohol abuse History of left total hip replacement History of pacemaker Plan: Cardiac diet Seizure precautions Follow surgical appliances salesperson recommendations broad-spectrum antibiotics Pain management DVT prophylaxis with Lovenox Further recommendations based on the clinical course History of Present Illness History of Present Illness 01/12 Patient lying in bed in no acute distress, he was urinating on his tray cover since he could not fing his urinal Patient's meds are reconciled and will restart especially his Flomax patient having trouble with urinary retention seems like. NO new complaints. 01/13 No acute events reported overnight, case discussed with nursing staff patient in no acute distress no complaints during my visit, awaiting for surgical appliances salesperson recommendations Vitals Vitals Vital Signs Date Time Temp Pulse Resp B/P (MAP) Pulse Ox O2 Delivery O2 Flow Rate FiO2 01/14/20 11:00 98.0 81 19 110/72 (85) 97 Room Air 98.0 Physical Exam Physical Exam Physical Exam GEN.: No apparent distress. Alert and oriented in person HEENT: Head is normocephalic, atraumatic NECK: Supple. LUNGS: Clear to auscultation. HEART: RRR, S1, S2 present. Peripheral pulses intact ABDOMEN: Soft, nontender. Positive bowel sounds. EXTREMITIES: Without any cyanosis. NEUROLOGIC: Normal speech, normal tone PSYCHIATRIC: Normal affect, normal mood. SKIN: Decubitus ulcers as described in the HPI General: Alert, Cooperative, No acute distress Lungs: Clear Extremities: Other (some superficial knee ulcer, but clean, wound pictures of sacral ulcer with fibrinous debris) Labs LABS Laboratory Tests Test 01/14/20 05:50 Creatinine 1.1 mg/dL (0.7-1.3) Estimated GFR (Cockcroft-Gault) 77.0 Comment Review of Relevant I have reviewed the following items adwoa (where applicable) has been applied. Labs Laboratory Tests Test 01/12/20 20:40 01/14/20 05:50 White Blood Count 5.6 x10^3/uL (4.0-11.0) Red Blood Count 4.15 x10^6/uL (4.30-5.70) Hemoglobin 12.1 g/dL (13.0-17.5) Hematocrit 34.6 % (39.0-53.0) Mean Corpuscular Volume 83 fL (79-100) Mean Corpuscular Hemoglobin 29 pg (25-35) Mean Corpuscular Hemoglobin Concent 35 g/dL (31-37) Red Cell Distribution Width 15.0 % (11.5-14.5) Platelet Count 218 x10^3/uL (140-400) Neutrophils (%) (Auto) 53 % (31-73) Lymphocytes (%) (Auto) 26 % (24-48) Monocytes (%) (Auto) 16 % (0-9) Eosinophils (%) (Auto) 5 % (0-3) Basophils (%) (Auto) 1 % (0-3) Neutrophils # (Auto) 3.0 x10^3/uL (1.8-7.7) Lymphocytes # (Auto) 1.4 x10^3/uL (1.0-4.8) Monocytes # (Auto) 0.9 x10^3/uL (0.0-1.1) Eosinophils # (Auto) 0.3 x10^3/uL (0.0-0.7) Basophils # (Auto) 0.0 x10^3/uL (0.0-0.2) Prothrombin Time 13.3 SEC (11.7-14.0) Prothromb Time International Ratio 1.1 (0.8-1.1) Sodium Level 137 mmol/L (136-145) Potassium Level 4.5 mmol/L (3.5-5.1) Chloride Level 104 mmol/L (98-107) Carbon Dioxide Level 29 mmol/L (21-32) Anion Gap 4 (6-14) Blood Urea Nitrogen 24 mg/dL (8-26) Creatinine 1.0 mg/dL (0.7-1.3) 1.1 mg/dL (0.7-1.3) Estimated GFR (Cockcroft-Gault) 85.9 77.0 BUN/Creatinine Ratio 24 (6-20) Glucose Level 109 mg/dL (70-99) Calcium Level 8.3 mg/dL (8.5-10.1) Total Bilirubin 0.2 mg/dL (0.2-1.0) Aspartate Amino Transf (AST/SGOT) 37 U/L (15-37) Alanine Aminotransferase (ALT/SGPT) 72 U/L (16-63) Alkaline Phosphatase 68 U/L (46-116) C-Reactive Protein, Quantitative 39.1 mg/L (0-3.3) Total Protein 6.6 g/dL (6.4-8.2) Albumin 2.4 g/dL (3.4-5.0) Albumin/Globulin Ratio 0.6 (1.0-1.7) Thyroid Stimulating Hormone (TSH) 3.944 uIU/mL (0.358-3.74) Laboratory Tests Test 01/14/20 05:50 Creatinine 1.1 mg/dL (0.7-1.3) Estimated GFR (Cockcroft-Gault) 77.0 Microbiology 01/12/20 Blood Culture - Preliminary, Resulted NO GROWTH AFTER 1 DAY Medications Current Medications Ondansetron HCl (Zofran) 4 mg PRN Q4HRS PRN IV NAUSEA/VOMITING Last administered on 01/13/20at 00:43; Start 01/12/20 at 16:45 Zolpidem Tartrate (Ambien) 5 mg PRN QHS PRN PO INSOMNIA; Start 01/12/20 at 16:45 Acetaminophen (Tylenol) 650 mg PRN Q4HRS PRN PO TEMP OVER 100.4F OR MILD PAIN; Start 01/12/20 at 16:45; Stop 01/13/20 at 09:28; Status DC Docusate Sodium (Colace) 100 mg PRN BID PRN PO HARD STOOLS; Start 01/12/20 at 16:45 Albuterol Sulfate (Ventolin Neb Soln) 2.5 mg PRN Q4HRS PRN NEB SHORTNESS OF BREATH; Start 01/12/20 at 16:45 Guaifenesin (Robitussin) 200 mg PRN Q4HRS PRN PO COUGH; Start 01/12/20 at 16:45 Enoxaparin Sodium (Lovenox 40mg Syringe) 40 mg Q24H SQ Last administered on 01/13/20at 21:33; Start 01/12/20 at 21:00 Vancomycin HCl (Vanco Per Pharmacy) 1 each PRN DAILY PRN MC SEE COMMENTS Last administered on 01/13/20at 10:59; Start 01/12/20 at 16:45 Piperacillin Sod/ Tazobactam Sod 3.375 gm/Sodium Chloride 50 ml @ 100 mls/hr Q6HRS IV Last administered on 01/14/20at 06:13; Start 01/12/20 at 18:00 Vancomycin HCl 2 gm/Sodium Chloride 500 ml @ 250 mls/hr 1X ONCE IV Last administered on 01/12/20at 19:37; Start 01/12/20 at 17:00; Stop 01/12/20 at 18:59; Status DC Vancomycin HCl 1.25 gm/Sodium Chloride 250 ml @ 167 mls/hr Q24H IV Last administered on 01/13/20at 21:33; Start 01/13/20 at 20:00 Vancomycin HCl (Vancomycin Trough Level) 1 each 1X ONCE MC ; Start 01/14/20 at 19:30; Stop 01/14/20 at 19:31 Acetaminophen (Tylenol) 650 mg PRN Q6HRS PRN PO MILD PAIN / TEMP > 100.3'F; Start 01/13/20 at 12:00 Ascorbic Acid (Vitamin C) 500 mg DAILY PO Last administered on 01/14/20at 11:53; Start 01/13/20 at 09:00 Tamsulosin HCl (Flomax) 0.4 mg DAILY PO Last administered on 01/14/20at 11:53; Start 01/13/20 at 09:30 Levetiracetam (Keppra) 750 mg BID PO Last administered on 01/14/20at 11:53; Start 01/13/20 at 09:30 Multivitamins (Thera M Plus) 1 tab DAILY PO Last administered on 01/14/20at 11:53; Start 01/13/20 at 09:30 Lactobacillus Rhamnosus (Culturelle) 1 cap BID PO Last administered on 01/14/20at 11:53; Start 01/13/20 at 21:00 Active Scripts Active Reported One-A-Day Essential (Multivitamin) 1 Each Tablet 1 Tab PO DAILY 30 Days Vitamin C (Ascorbic Acid) 500 Mg Tablet 500 Mg PO DAILY Flomax (Tamsulosin Hcl) 0.4 Mg Cap.er.24h 1 Cap PO DAILY Tylenol (Acetaminophen) 325 Mg Tablet 650 Mg PO Q6HRS Keppra (Levetiracetam) 750 Mg Tablet 750 Mg PO BID Vitals/I & O Vital Sign - Last 24 Hours 01/13/20 01/13/20 01/13/20 01/13/20 15:00 19:00 20:00 23:00 Temp 97.9 98.6 98.2 97.9 98.6 98.2 Pulse 84 78 80 Resp 18 18 18 B/P (MAP) 106/72 (83) 122/65 (84) 124/64 (84) Pulse Ox 98 95 96 O2 Delivery Room Air Room Air Room Air Room Air 01/14/20 01/14/20 01/14/20 03:00 07:00 11:00 Temp 98.4 98.0 98.0 98.4 98.0 98.0 Pulse 84 81 81 Resp 18 18 19 B/P (MAP) 122/64 (83) 109/68 (82) 110/72 (85) Pulse Ox 97 97 97 O2 Delivery Room Air Room Air Room Air Intake and Output 01/13/20 01/13/20 01/14/20 15:00 23:00 07:00 Intake Total 0 ml Output Total 500 ml Balance 0 ml -500 ml Justicifation of Admission Dx: Justifications for Admission: Justification of Admission Dx: Yes Acute Renal Failure: 75% Reduction in GFR Altered Mental Status: Altered Mental Status KIERSTEN PONCE MD Jan 14, 2020 12:03
--- NOTE | 2020-01-14 14:34 | PDOC ---
SURGICAL PROGRESS NOTE DATE: 01/14/20 TIME: 14:33 Subjective Pt without c/o, lavon diet Vital Signs Vital Signs Date Time Temp Pulse Resp B/P (MAP) Pulse Ox O2 Delivery O2 Flow Rate FiO2 01/14/20 11:00 98.0 81 19 110/72 (85) 97 Room Air 98.0 I&O Intake and Output 01/14/20 07:00 Intake Total 0 ml Output Total 500 ml Balance -500 ml Intake Oral 0 ml Output Urine Total 500 ml # Bowel Movements 1 General: Alert, No acute distress Abdomen: Soft Labs Laboratory Tests Test 01/12/20 20:40 01/14/20 05:50 White Blood Count 5.6 x10^3/uL (4.0-11.0) Red Blood Count 4.15 x10^6/uL (4.30-5.70) Hemoglobin 12.1 g/dL (13.0-17.5) Hematocrit 34.6 % (39.0-53.0) Mean Corpuscular Volume 83 fL (79-100) Mean Corpuscular Hemoglobin 29 pg (25-35) Mean Corpuscular Hemoglobin Concent 35 g/dL (31-37) Red Cell Distribution Width 15.0 % (11.5-14.5) Platelet Count 218 x10^3/uL (140-400) Neutrophils (%) (Auto) 53 % (31-73) Lymphocytes (%) (Auto) 26 % (24-48) Monocytes (%) (Auto) 16 % (0-9) Eosinophils (%) (Auto) 5 % (0-3) Basophils (%) (Auto) 1 % (0-3) Neutrophils # (Auto) 3.0 x10^3/uL (1.8-7.7) Lymphocytes # (Auto) 1.4 x10^3/uL (1.0-4.8) Monocytes # (Auto) 0.9 x10^3/uL (0.0-1.1) Eosinophils # (Auto) 0.3 x10^3/uL (0.0-0.7) Basophils # (Auto) 0.0 x10^3/uL (0.0-0.2) Prothrombin Time 13.3 SEC (11.7-14.0) Prothromb Time International Ratio 1.1 (0.8-1.1) Sodium Level 137 mmol/L (136-145) Potassium Level 4.5 mmol/L (3.5-5.1) Chloride Level 104 mmol/L (98-107) Carbon Dioxide Level 29 mmol/L (21-32) Anion Gap 4 (6-14) Blood Urea Nitrogen 24 mg/dL (8-26) Creatinine 1.0 mg/dL (0.7-1.3) 1.1 mg/dL (0.7-1.3) Estimated GFR (Cockcroft-Gault) 85.9 77.0 BUN/Creatinine Ratio 24 (6-20) Glucose Level 109 mg/dL (70-99) Calcium Level 8.3 mg/dL (8.5-10.1) Total Bilirubin 0.2 mg/dL (0.2-1.0) Aspartate Amino Transf (AST/SGOT) 37 U/L (15-37) Alanine Aminotransferase (ALT/SGPT) 72 U/L (16-63) Alkaline Phosphatase 68 U/L (46-116) C-Reactive Protein, Quantitative 39.1 mg/L (0-3.3) Total Protein 6.6 g/dL (6.4-8.2) Albumin 2.4 g/dL (3.4-5.0) Albumin/Globulin Ratio 0.6 (1.0-1.7) Thyroid Stimulating Hormone (TSH) 3.944 uIU/mL (0.358-3.74) Laboratory Tests Test 01/14/20 05:50 Creatinine 1.1 mg/dL (0.7-1.3) Estimated GFR (Cockcroft-Gault) 77.0 Problem List decub ulcer will ask wound care to comment in AM and will d/w them intervention options. Justicifation of Admission Dx: Justifications for Admission: Justification of Admission Dx: Yes Acute Renal Failure: 75% Reduction in GFR Altered Mental Status: Altered Mental Status MARICARMEN ROLDAN MD Jan 14, 2020 14:34
[2020-01-14 15:00] VITALS: BP 118/62
[2020-01-14 19:00] VITALS: BP 128/53
[2020-01-14 19:07] LABS: VANC TR 9.6 mcg/mL (10.0-20.0)
[2020-01-14] MEDS: VANCOMYCIN PER PHARMACY MC PRN (19:19)
--- NOTE | 2020-01-14 19:20 | NUR ---
Pharmacy Vancomycin Dosing Note S: Consulted to monitor and dose vancomycin started 01/12/20. O: YONATHAN RIVERA is a 84 year old M with DECUB ULCERS. Other Antibiotics: ZOSYN LABS: Last BUN: 24 Last Creatinine: 1.1 Creatinine Clearance: 60 mL/min Last WBC: 5.6 Last Procalcitonin: -- Tmax (past 24 hours): 98 Microbiology: 01/11: blood cx pending I/O: -- Drug Levels: Last Trough level: 9.6 on 01/14/20 at 1845 Last dose given 01/13/20 at 2133 Vancomycin Dosing: Dosing Weight: Adjusted Target Trough: 10-20 A: Based on: trough level adjusted for timing P: 1. Increase to Vancomycin 1250 mg IV q18h 2. Follow up Trough level on 01/14/20 at 1930 3. Pharmacy will continue to monitor, follow and adjust therapy as needed. MAULIK BOWEN RPH, 01/14/20 1920
[2020-01-14] MEDS: ENOXAPARIN 40 MG/0.4 ML SYRINGE. SQ SCH (21:05)
[2020-01-14] MEDS: VANCOMYCIN 1.25 GM in IV NORMAL SALINE 250ML 250 ML IV SCH (21:07)
[2020-01-14 23:00] VITALS: BP 123/53
[2020-01-15] MEDS: PIPERACILLIN/TAZOBACTAM 3.375 GM in IV NORMAL SALINE 50ML 50 ML IV SCH ×4 (00:27→18:09)
[2020-01-15 03:00] VITALS: BP 108/61
[2020-01-15 07:00] VITALS: BP 125/58
[2020-01-15] MEDS: levETIRAcetam 250 MG TABLET PO SCH ×2 (08:02→20:07)
[2020-01-15] MEDS: MULTIVITAMIN with MINERAL TABLET. PO SCH (08:02)
[2020-01-15] MEDS: TAMSULOSIN 0.4 MG CAP.ER.24H. PO SCH (08:02)
[2020-01-15] MEDS: ASCORBIC ACID 500 MG TABLET PO SCH (08:02)
[2020-01-15] MEDS: LACTOBACILLUS RHAMNOSUS GG 1 CAPSULE. PO SCH ×2 (08:03→20:07)
--- NOTE | 2020-01-15 09:12 | PDOC ---
SURGICAL PROGRESS NOTE DATE: 01/15/20 TIME: 09:10 Subjective resting no complaints Vital Signs Vital Signs Date Time Temp Pulse Resp B/P (MAP) Pulse Ox O2 Delivery O2 Flow Rate FiO2 01/15/20 07:00 98.0 78 18 125/58 (80) 96 Room Air 98.0 I&O Intake and Output 01/15/20 07:00 Intake Total 560 ml Output Total 200 ml Balance 360 ml Intake Oral 560 ml Output Urine Total 200 ml # Voids 8 # Bowel Movements 1 General: Cooperative Abdomen: Soft Labs Laboratory Tests Test 01/14/20 05:50 01/14/20 18:45 Creatinine 1.1 mg/dL (0.7-1.3) Estimated GFR (Cockcroft-Gault) 77.0 Vancomycin Level Trough 9.6 mcg/mL (10.0-20.0) Vancomycin Last Dose Date 01/13/20 Vancomycin Last Dose Time 1999 Laboratory Tests Test 01/14/20 18:45 Vancomycin Level Trough 9.6 mcg/mL (10.0-20.0) Vancomycin Last Dose Date 01/13/20 Vancomycin Last Dose Time 1999 Problem List await wound care eval--d/w them on options for treatment Justicifation of Admission Dx: Justifications for Admission: Justification of Admission Dx: Yes Acute Renal Failure: 75% Reduction in GFR Altered Mental Status: Altered Mental Status [employer] Jan 15, 2020 09:12
--- NOTE | 2020-01-15 09:41 | NUR ---
SW following. Discussed with RN. SW verified pt came from [facility], pt can return when medically stable. PT/OT still recommending SNU. Pt will need a COVID test prior to return to [facility]. RN notified. SW will continue to follow.
[2020-01-15] MEDS: VANCOMYCIN PER PHARMACY MC PRN (10:30)
[2020-01-15 11:00] VITALS: BP 132/66
--- NOTE | 2020-01-15 11:50 | PDOC ---
[employer] PROGRESS NOTE Date of Service DOS: DATE: 01/15/20 TIME: 11:43 Chief Complaint Chief Complaint Unstageable sacral decubitus ulcer History of Present Illness History of Present Illness 01/15/2020 Pt was seen and evaluated. WILFREDO RN WILFREDO case management. 01/12 Patient lying in bed in no acute distress, he was urinating on his tray cover since he could not fing his urinal Patient's meds are reconciled and will restart especially his Flomax patient having trouble with urinary retention seems like. NO new complaints. 01/13 No acute events reported overnight, case discussed with nursing staff patient in no acute distress no complaints during my visit, awaiting for sales consultant recommendations Vitals/I&O Vitals/I&O: Vital Signs Date Time Temp Pulse Resp B/P (MAP) Pulse Ox O2 Delivery O2 Flow Rate FiO2 01/15/20 11:00 98.0 80 18 132/66 (88) 96 Room Air 98.0 I & O 01/14/20 01/14/20 01/15/20 15:00 23:00 07:00 Intake Total 320 ml 240 ml Output Total 200 ml Balance 320 ml 240 ml -200 ml Physical Exam General: No acute distress, Other (Resting, no apparent distress. ) Heart: Normal S1, Normal S2 Lungs: Clear Abdomen: Soft Extremities: No edema, Other (some superficial knee ulcer, but clean, wound pictures of sacral ulcer with fibrinous debris) Skin: No rashes, Other (Decubitus ulcers as described in the HPI) Labs Labs: Laboratory Tests Test 01/14/20 18:45 Vancomycin Level Trough 9.6 mcg/mL (10.0-20.0) Vancomycin Last Dose Date 01/13/20 Vancomycin Last Dose Time 1999 Review of Systems Review of Systems: pt was resting, unable to complete ROS. Assessment and Plan Assessmemt and Plan Assessment: Unstageable sacral decubitus ulcer Left heel ulcer seems to be stage II Stage II left lateral knee wound history of seizure disorder History of GERD History of alcohol abuse History of left total hip replacement History of pacemaker Plan: Cardiac diet Seizure precautions Follow sales consultant recommendations Pain management Further recommendations based on the clinical course IV antibiotics Wound care PTOT DVT Prophylaxis Home meds. Comment Review of Relevant I have reviewed the following items adwoa (where applicable) has been applied. Medications: Current Medications Medications (Trade) Dose Ordered Sig/Sriram Route PRN Reason Start Time Stop Time Status Last Admin Dose Admin Vancomycin HCl (Vancomycin Trough Level) 1 each 1X ONCE MC 01/14/20 19:30 01/14/20 19:31 DC 01/14/20 19:30 Vancomycin HCl 1.25 gm/Sodium Chloride 250 ml @ 167 mls/hr Q18H IV 01/14/20 20:00 01/14/20 21:07 Justifications for Admission Other Justification TREVOR ISABEL III DO Jan 15, 2020 11:50
--- NOTE | 2020-01-15 12:01 | PDOC2 ---
Chief Complaint: Chief Complaint: Sacral wound Vital Signs: Vital Signs: Vital Signs Date Time Temp Pulse Resp B/P (MAP) Pulse Ox O2 Delivery O2 Flow Rate FiO2 01/14/20 07:00 98.0 81 18 109/68 (82) 97 Room Air 98.0 Vital Signs Date Time Temp Pulse Resp B/P (MAP) Pulse Ox O2 Delivery O2 Flow Rate FiO2 01/15/20 11:00 98.0 80 18 132/66 (88) 96 Room Air 98.0 Allergies: Allergies: Allergies Coded Allergies Type Severity Reaction Last Updated Verified No Known Drug Allergies 07/30/14 No Medications: Home Meds Reported Medications Multivitamin (ONE-A-DAY ESSENTIAL) 1 Each Tablet, 1 TAB PO DAILY for supplement for 30 Days, #30 TAB 0 Refills 01/12/20 Ascorbic Acid (VITAMIN C) 500 Mg Tablet, 500 MG PO DAILY for supplement , TAB 01/12/20 Tamsulosin Hcl (FLOMAX) 0.4 Mg Cap.er.24h, 1 CAP PO DAILY for BPH, #30 CAP 11 Refills 01/12/20 Acetaminophen (TYLENOL) 325 Mg Tablet, 650 MG PO Q6HRS, TAB 06/07/17 Levetiracetam (KEPPRA) 750 Mg Tablet, 750 MG PO BID, TAB 06/07/17 PCP: PCP: Dr Barrios Pain: Scale (pain): 0 (Pt denies pain at this time) Date of Onset Pt admitted to [facility] following a fall and extending time down at home. Pt treated, evaluated by neuro and discharged to [facility]. DTI of sacral region, DTI of left heel and stage 2 of left inner knee identified at [facility] prior to discharge. Stage 2 to left knee healed without complications. DTI of left heel stabalized without bogginess or further breakdown. DTI of sacrum broke down, revealing 100% slough with foul odor . PCP initiated Doxy 100mg bid on 01/09. This SIGN BOARD ERECTOR evaluated pt at [facility] on 01/12/20, attempted bedside debridement. Due to depth, unable to reach viable tissue. Notified Dr Ruano of need for surgical debridement. Pt admitted to [facility], awaiting surgical evaluation. PMH Total hip replacement PSH Pt lived at home independently prior to admission. Pt states he does not have family, however has neighbors and friends who check on him regularly. Pt with hx of alcohol abuse, denies tobacco use or elicit drug use. General: No: Chills, Fatigue, Malaise, Appetite (good appetite without n/v) Respiratory: No: Cough, Orthopnea Cardiovascular: No Chest Pain, No Orthopnea Gastrointestinal: No Nausea, No Vomiting, No Diarrhea Genitourinary: YES Incontinence (Intermittent. Pt uses urinal.); No Frequency Skin: No Dry Skin, No Eczema Neurological: No Confusion Psychological: No: Anxiety, Depression, Irritablity Physical Exam Pt awake and alert, 84 yo male in NAD. Pt pleasant in conversation and is a good historian. VSS. Afebrile. Respirations even and unlabored. Pt on RA, not requiring supplemental O2. Abdomen soft, nondistended and nontender. Skin WDP. LE without pitting edema. Sacral region presents with a 5x5.7cm open ulcerations. Wound bed 100% slough. Edges with epiboly. No surrounding erythema or edema. No odor following cleansing. The left heel reveals 5.2x3.2cm hardened blood blister. No surrounding erythema or edema. No active drainage. The left inner knee reveals a hypopigmented scar from previously healed ulceration. A/P 1) Unstageable sacral wound - Attempted bedside debridement at [facility] on 01/11, discontinued d/t depth. Spoke with surgical team and pt admitted to [facility] for surgical evaluation. - While awaiting surgical intervention: Cleanse and pat dry. Apply skin prep to surrounding tissue. Cover with Aquacell Ag and cover with foam adhesive. Change every 3 days or prn if dressing loose or saturated. - Pt on alternating pressure mattress with foam wedge. - Recommend dietary consult to ensure pt with adequate protein intake for optimal wound healing. 2) DTI to left heel - Pressure not applied to affected area with ambulation, therefore pt may work with PT/OT for strength and reconditioning. - apply skin prep bid and LOTA - Float heel while in bed ARIELLE FINLEY PARKING GARAGE MANAGER Jan 15, 2020 12:01
[2020-01-15] MEDS: VANCOMYCIN 1.25 GM in IV NORMAL SALINE 250ML 250 ML IV SCH (14:54)
[2020-01-15 15:00] VITALS: BP 120/62
[2020-01-15 19:00] VITALS: BP 109/51
[2020-01-15] MEDS: ENOXAPARIN 40 MG/0.4 ML SYRINGE. SQ SCH (20:07)
[2020-01-15 23:00] VITALS: BP 117/62
[2020-01-16] VITALS (11 sets, daily range): BP systolic 99–121; BP diastolic 55–70
[2020-01-16] MEDS: PIPERACILLIN/TAZOBACTAM 3.375 GM in IV NORMAL SALINE 50ML 50 ML IV SCH ×5 (00:35→23:20)
[2020-01-16 05:43] LABS: CREATININE 1.3 mg/dL (0.7-1.3); GFR 63.5
[2020-01-16] MEDS ORDERED: ONDANSETRON PF 4 MG/2 ML VIAL. IV PRN (07:00)
[2020-01-16] MEDS ORDERED: fentaNYL PF VIAL 100 MCG/2 ML VIAL IV PRN ×2 (07:00)
[2020-01-16] MEDS ORDERED: IV RINGERS,LACTATED 1000ML 1,000 ML IV SCH (07:00)
[2020-01-16] MEDS ORDERED: HYDROmorphone 2 MG/ML VIAL IV PRN (07:00)
[2020-01-16] MEDS ORDERED: LIDOCAINE 1% PF 2 ML VIAL. ID PRN (07:00)
[2020-01-16] MEDS ORDERED: PROCHLORPERAZINE 10 MG/2 ML VIAL. IV PRN (07:00)
[2020-01-16] MEDS ORDERED: MORPHINE SULFATE 2 MG/ML VIAL. IV PRN (07:00)
[2020-01-16] MEDS: levETIRAcetam 250 MG TABLET PO SCH ×2 (08:16→20:49)
[2020-01-16] MEDS: VANCOMYCIN 1.25 GM in IV NORMAL SALINE 250ML 250 ML IV SCH (08:16)
[2020-01-16] MEDS: TAMSULOSIN 0.4 MG CAP.ER.24H. PO SCH (08:23)
[2020-01-16] MEDS: LACTOBACILLUS RHAMNOSUS GG 1 CAPSULE. PO SCH ×2 (08:23→20:47)
[2020-01-16] MEDS: MULTIVITAMIN with MINERAL TABLET. PO SCH (08:23)
[2020-01-16] MEDS: ASCORBIC ACID 500 MG TABLET PO SCH (08:23)
[2020-01-16] MEDS: VANCOMYCIN PER PHARMACY MC PRN (09:29)
--- NOTE | 2020-01-16 09:35 | NUR ---
SW following. Discussed with RN, pt is COVID-19 negative. Pt having a debridement at noon today. SW will continue to follow.
[2020-01-16] MEDS ORDERED: PROPOFOL 10 MG/ML (20ML) VIAL. IV ONE ×2 (10:57→13:53)
[2020-01-16] MEDS ORDERED: ROCURONIUM 50 MG/5 ML VIAL. ONE (10:57)
[2020-01-16] MEDS ORDERED: PHENYLEPHRINE in 0.9% NACL PF 1 MG/10 ML SYRINGE. IV ONE (10:57)
[2020-01-16] MEDS ORDERED: ePHEDrine PF IN SALINE 50 MG/10 ML SYRINGE. IV ONE (10:57)
[2020-01-16] MEDS ORDERED: LIDOCAINE 2% PF 5 ML VIAL. ONE (10:57)
[2020-01-16] MEDS ORDERED: fentaNYL PF VIAL 100 MCG/2 ML VIAL ONE (11:00)
[2020-01-16] MEDS ORDERED: SUCCINYLCHOLINE 200 MG/10 ML VIAL. ONE (11:00)
--- NOTE | 2020-01-16 11:59 | PDOC ---
[employer] PROGRESS NOTE Date of Service DOS: DATE: 01/16/20 TIME: 11:54 Chief Complaint Chief Complaint Unstageable sacral decubitus ulcer History of Present Illness History of Present Illness 01/16/2020 Pt was seen and evaluate. WILFREDO RN. WILFREDO case management. 01/15/2020 Pt was seen and evaluated. WILFREDO RN WILFREDO case management. 01/12 Patient lying in bed in no acute distress, he was urinating on his tray cover since he could not fing his urinal Patient's meds are reconciled and will restart especially his Flomax patient having trouble with urinary retention seems like. NO new complaints. 01/13 No acute events reported overnight, case discussed with nursing staff patient in no acute distress no complaints during my visit, awaiting for director surgical recommendations Vitals/I&O Vitals/I&O: Vital Signs Date Time Temp Pulse Resp B/P (MAP) Pulse Ox O2 Delivery O2 Flow Rate FiO2 01/16/20 11:00 98.3 71 18 115/62 (79) 96 Room Air 98.3 I & O 01/15/20 01/15/20 01/16/20 15:00 23:00 07:00 Intake Total 220 ml 200 ml 0 ml Output Total 350 ml Balance 220 ml 200 ml -350 ml Physical Exam General: Alert, Oriented X3, Cooperative, No acute distress, Other (Resting, no apparent distress. ) Heart: Normal S1, Normal S2 Lungs: Clear Abdomen: Soft Extremities: No edema, Other (some superficial knee ulcer, but clean, wound pictures of sacral ulcer with fibrinous debris) Skin: No rashes, Other (Decubitus ulcer) Labs Labs: Laboratory Tests Test 01/16/20 04:30 Creatinine 1.3 mg/dL (0.7-1.3) Estimated GFR (Cockcroft-Gault) 63.5 Review of Systems Review of Systems: No shortness of breath. No weakness. Assessment and Plan Assessmemt and Plan Assessment: Unstageable sacral ulcer. DTI left heel Stage 2 ulcer left inner knee. Plan: Awaiting surgical debridement. Wound Care. IV antibiotics. PTOT. DVT prophylaxis. Seizure precautions. Home Meds. Appreciate subspeciality input. Comment Review of Relevant I have reviewed the following items adwoa (where applicable) has been applied. Justifications for Admission Other Justification TREVOR ISABEL III DO Jan 16, 2020 11:59
--- NOTE | 2020-01-16 13:21 | PDOC ---
SURGICAL PROGRESS NOTE DATE: 01/16/20 TIME: 13:21 Subjective Pre-Op Note 84 yo M with decub sacral ulcer TO OR for debridement. Pt without c/o. Vital Signs Vital Signs Date Time Temp Pulse Resp B/P (MAP) Pulse Ox O2 Delivery O2 Flow Rate FiO2 01/16/20 12:02 97.1 71 21 122/65 99 Room Air 97.1 I&O Intake and Output 01/16/20 07:00 Intake Total 420 ml Output Total 350 ml Balance 70 ml Intake Oral 420 ml Output Urine Total 350 ml # Voids 4 Labs Laboratory Tests Test 01/14/20 18:45 01/15/20 11:50 01/16/20 04:30 Vancomycin Level Trough 9.6 mcg/mL (10.0-20.0) Vancomycin Last Dose Date 01/13/20 Vancomycin Last Dose Time 1999 SARS-CoV-2 Antigen (Rapid) Negative (NEGATIVE) Creatinine 1.3 mg/dL (0.7-1.3) Estimated GFR (Cockcroft-Gault) 63.5 Laboratory Tests Test 01/16/20 04:30 Creatinine 1.3 mg/dL (0.7-1.3) Estimated GFR (Cockcroft-Gault) 63.5 Justicifation of Admission Dx: Justifications for Admission: Justification of Admission Dx: Yes Acute Renal Failure: 75% Reduction in GFR Altered Mental Status: Altered Mental Status MARICARMEN ROLDAN MD Jan 16, 2020 13:21
[2020-01-16] MEDS ORDERED: SEVOFLURANE 31 TO 60 MINUTES. IH ONE (13:54)
[2020-01-16] MEDS ORDERED: ONDANSETRON PF 4 MG/2 ML VIAL. ONE (13:54)
--- NOTE | 2020-01-16 17:07 | NUR ---
Pt escorted out to main entrance by wheelchair with family by Jen MARINO. IV discontinued, all belongings with patient. Addendum: 01/16/20 at 1711 by ELEONORA MCFADDEN RN RN Wrong patient. Disregard this note
[2020-01-16] MEDS: ENOXAPARIN 40 MG/0.4 ML SYRINGE. SQ SCH (20:49)
--- NOTE | 2020-01-16 21:51 | PDOC4 ---
OPERATIVE NOTE Date: Date: Jan 16, 2020 Pre-Op Diagnosis: Sacral decubitus ulcer Post-Op Diagnosis: same Procedure Performed: Excisional debridement of sacral decub ulcer of skin subcutaneous tissue Surgeon: Joe Roldan Anesthesia Type: GETA plus local Blood Loss: 50 Specimans Obtained: ulcer Findings: 4 cm x 4 cm x 2 cm decub ulcer involving skin and subcutaneous tissue, no obvious bony involvement. Complications: none Operative Note: After obtaining informed consent, patient was taken to OR, induced under GETA and prepped in the usual fashion in a left side down decubitus position. Ulcer identified overlying sacrum and noted as above. Cautery was used to divide skin outside wound edge. All necrotic and overtly infected tissue excised. Specimen sent to pathology for evaluation. Copious irrigation. Hemostasis obtained with cautery and 0 vicryl. Wound packed with iodoform gauze and dressing placed. Patient tolerated procedure well and sent to PACU in stable condition. All counts correct. Wound class is 4. MARICARMEN ROLDAN MD Jan 16, 2020 21:51
[2020-01-17] MEDS: VANCOMYCIN 1.25 GM in IV NORMAL SALINE 250ML 250 ML IV SCH ×2 (01:35→22:03)
[2020-01-17 03:03] VITALS: BP 121/68
[2020-01-17] MEDS: PIPERACILLIN/TAZOBACTAM 3.375 GM in IV NORMAL SALINE 50ML 50 ML IV SCH ×3 (05:09→17:03)
[2020-01-17 05:44] LABS: BASO % 1 % (0-3); EOS # 0.2 x10^3/uL (0.0-0.7); EOS % 5 % (0-3); HEMATOCRIT 38.2 % (39.0-53.0); LYMPH # 1.5 x10^3/uL (1.0-4.8); LYMPH % 29 % (24-48); MEAN CORPUSCULAR HEMOGLOBIN 29 pg (25-35); MEAN CORPUSCULAR HGB CONC 34 g/dL (31-37); MEAN CORPUSCULAR VOLUME 86 fL (79-100); MONO # 0.7 x10^3/uL (0.0-1.1); MONO % 13 % (0-9); NEUT # 2.7 x10^3/uL (1.8-7.7); NEUT % 53 % (31-73); PLATELET COUNT 219 x10^3/uL (140-400); RED BLOOD COUNT 4.45 x10^6/uL (4.30-5.70); RED CELL DISTRIBUTION WIDTH 15.2 % (11.5-14.5); WHITE BLOOD COUNT 5.1 x10^3/uL (4.0-11.0)
[2020-01-17 06:19] LABS: CALCIUM 8.2 mg/dL (8.5-10.1); CREATININE 0.9 mg/dL (0.7-1.3); POTASSIUM 4.5 mmol/L (3.5-5.1)
[2020-01-17 07:00] VITALS: BP 110/53
[2020-01-17] MEDS: LACTOBACILLUS RHAMNOSUS GG 1 CAPSULE. PO SCH ×2 (07:58→22:06)
[2020-01-17] MEDS: MULTIVITAMIN with MINERAL TABLET. PO SCH (07:58)
[2020-01-17] MEDS: ASCORBIC ACID 500 MG TABLET PO SCH (07:58)
[2020-01-17] MEDS: TAMSULOSIN 0.4 MG CAP.ER.24H. PO SCH (07:58)
--- NOTE | 2020-01-17 08:57 | PDOC ---
SURGICAL PROGRESS NOTE DATE: 01/17/20 TIME: 08:56 Subjective resting Vital Signs Vital Signs Date Time Temp Pulse Resp B/P (MAP) Pulse Ox O2 Delivery O2 Flow Rate FiO2 01/17/20 08:00 Room Air 01/17/20 07:00 98.3 75 16 110/53 (72) 100 98.3 01/16/20 14:13 6 I&O Intake and Output 01/17/20 07:00 Intake Total 490 ml Output Total 250 ml Balance 240 ml Intake Oral 340 ml IV Total 150 ml Output Urine Total 200 ml Estimated Blood Loss 50 ml # Voids 1 General: Cooperative, No acute distress Skin: Other (dressing in place) Labs Laboratory Tests Test 01/15/20 11:50 01/16/20 04:30 01/17/20 03:25 Coronavirus (PCR) Not detected (Not Detected) SARS-CoV-2 Antigen (Rapid) Negative (NEGATIVE) Creatinine 1.3 mg/dL (0.7-1.3) 0.9 mg/dL (0.7-1.3) Estimated GFR (Cockcroft-Gault) 63.5 97.0 White Blood Count 5.1 x10^3/uL (4.0-11.0) Red Blood Count 4.45 x10^6/uL (4.30-5.70) Hemoglobin 13.0 g/dL (13.0-17.5) Hematocrit 38.2 % (39.0-53.0) Mean Corpuscular Volume 86 fL (79-100) Mean Corpuscular Hemoglobin 29 pg (25-35) Mean Corpuscular Hemoglobin Concent 34 g/dL (31-37) Red Cell Distribution Width 15.2 % (11.5-14.5) Platelet Count 219 x10^3/uL (140-400) Neutrophils (%) (Auto) 53 % (31-73) Lymphocytes (%) (Auto) 29 % (24-48) Monocytes (%) (Auto) 13 % (0-9) Eosinophils (%) (Auto) 5 % (0-3) Basophils (%) (Auto) 1 % (0-3) Neutrophils # (Auto) 2.7 x10^3/uL (1.8-7.7) Lymphocytes # (Auto) 1.5 x10^3/uL (1.0-4.8) Monocytes # (Auto) 0.7 x10^3/uL (0.0-1.1) Eosinophils # (Auto) 0.2 x10^3/uL (0.0-0.7) Basophils # (Auto) 0.0 x10^3/uL (0.0-0.2) Sodium Level 139 mmol/L (136-145) Potassium Level 4.5 mmol/L (3.5-5.1) Chloride Level 105 mmol/L (98-107) Carbon Dioxide Level 24 mmol/L (21-32) Anion Gap 10 (6-14) Blood Urea Nitrogen 15 mg/dL (8-26) Glucose Level 64 mg/dL (70-99) Calcium Level 8.2 mg/dL (8.5-10.1) Laboratory Tests Test 01/17/20 03:25 White Blood Count 5.1 x10^3/uL (4.0-11.0) Red Blood Count 4.45 x10^6/uL (4.30-5.70) Hemoglobin 13.0 g/dL (13.0-17.5) Hematocrit 38.2 % (39.0-53.0) Mean Corpuscular Volume 86 fL (79-100) Mean Corpuscular Hemoglobin 29 pg (25-35) Mean Corpuscular Hemoglobin Concent 34 g/dL (31-37) Red Cell Distribution Width 15.2 % (11.5-14.5) Platelet Count 219 x10^3/uL (140-400) Neutrophils (%) (Auto) 53 % (31-73) Lymphocytes (%) (Auto) 29 % (24-48) Monocytes (%) (Auto) 13 % (0-9) Eosinophils (%) (Auto) 5 % (0-3) Basophils (%) (Auto) 1 % (0-3) Neutrophils # (Auto) 2.7 x10^3/uL (1.8-7.7) Lymphocytes # (Auto) 1.5 x10^3/uL (1.0-4.8) Monocytes # (Auto) 0.7 x10^3/uL (0.0-1.1) Eosinophils # (Auto) 0.2 x10^3/uL (0.0-0.7) Basophils # (Auto) 0.0 x10^3/uL (0.0-0.2) Sodium Level 139 mmol/L (136-145) Potassium Level 4.5 mmol/L (3.5-5.1) Chloride Level 105 mmol/L (98-107) Carbon Dioxide Level 24 mmol/L (21-32) Anion Gap 10 (6-14) Blood Urea Nitrogen 15 mg/dL (8-26) Creatinine 0.9 mg/dL (0.7-1.3) Estimated GFR (Cockcroft-Gault) 97.0 Glucose Level 64 mg/dL (70-99) Calcium Level 8.2 mg/dL (8.5-10.1) Problem List s/p debridement wound care to see Justicifation of Admission Dx: Justifications for Admission: Justification of Admission Dx: Yes Acute Renal Failure: 75% Reduction in GFR Altered Mental Status: Altered Mental Status HEENA LIVE AUDIO ENGINEER Jan 17, 2020 08:57
[2020-01-17] MEDS: VANCOMYCIN PER PHARMACY MC PRN (09:50)
[2020-01-17] MEDS: levETIRAcetam 250 MG TABLET PO SCH ×2 (10:02→22:07)
--- NOTE | 2020-01-17 10:19 | NUR ---
SW following. Discussed with RN, pt may be ready to discharge back to [facility] today - RN trying to determine if IV abx are needed, if yes, pt will need a PICC line placed. SW met with pt, pt is wanting to return to [facility] SNU. SW awaiting confirmation of discharge. SW will continue to follow.
[2020-01-17 11:00] VITALS: BP 105/60
--- NOTE | 2020-01-17 11:36 | PDOC ---
[employer] PROGRESS NOTE Date of Service DOS: DATE: 01/17/20 TIME: 11:34 Chief Complaint Chief Complaint Unstageable sacral decubitus ulcer History of Present Illness History of Present Illness 01/17/2020 Pt was seen and examined. WILFREDO RN and CECY. Debridement w/o complications. 01/16/2020 Pt was seen and evaluate. WILFREDO RN. WILFREDO case management. 01/15/2020 Pt was seen and evaluated. WILFREDO RN WILFREDO case management. 01/12 Patient lying in bed in no acute distress, he was urinating on his tray cover since he could not fing his urinal Patient's meds are reconciled and will restart especially his Flomax patient having trouble with urinary retention seems like. NO new complaints. 01/13 No acute events reported overnight, case discussed with nursing staff patient in no acute distress no complaints during my visit, awaiting for surgical manager recommendations Vitals/I&O Vitals/I&O: Vital Signs Date Time Temp Pulse Resp B/P (MAP) Pulse Ox O2 Delivery O2 Flow Rate FiO2 01/17/20 11:00 98.8 82 16 105/60 (75) 97 Room Air 98.8 01/16/20 14:13 6 I & O 01/16/20 01/16/20 01/17/20 15:00 23:00 07:00 Intake Total 150 ml 240 ml 100 ml Output Total 250 ml Balance -100 ml 240 ml 100 ml Physical Exam General: Alert, Oriented X3, Cooperative, No acute distress Heart: Normal S1, Normal S2 Lungs: Clear Abdomen: Soft Extremities: No edema, Other (some superficial knee ulcer, but clean, wound pictures of sacral ulcer with fibrinous debris) Skin: No rashes, Other (dressing in place) Labs Labs: Laboratory Tests Test 01/17/20 03:25 White Blood Count 5.1 x10^3/uL (4.0-11.0) Red Blood Count 4.45 x10^6/uL (4.30-5.70) Hemoglobin 13.0 g/dL (13.0-17.5) Hematocrit 38.2 % (39.0-53.0) Mean Corpuscular Volume 86 fL (79-100) Mean Corpuscular Hemoglobin 29 pg (25-35) Mean Corpuscular Hemoglobin Concent 34 g/dL (31-37) Red Cell Distribution Width 15.2 % (11.5-14.5) Platelet Count 219 x10^3/uL (140-400) Neutrophils (%) (Auto) 53 % (31-73) Lymphocytes (%) (Auto) 29 % (24-48) Monocytes (%) (Auto) 13 % (0-9) Eosinophils (%) (Auto) 5 % (0-3) Basophils (%) (Auto) 1 % (0-3) Neutrophils # (Auto) 2.7 x10^3/uL (1.8-7.7) Lymphocytes # (Auto) 1.5 x10^3/uL (1.0-4.8) Monocytes # (Auto) 0.7 x10^3/uL (0.0-1.1) Eosinophils # (Auto) 0.2 x10^3/uL (0.0-0.7) Basophils # (Auto) 0.0 x10^3/uL (0.0-0.2) Sodium Level 139 mmol/L (136-145) Potassium Level 4.5 mmol/L (3.5-5.1) Chloride Level 105 mmol/L (98-107) Carbon Dioxide Level 24 mmol/L (21-32) Anion Gap 10 (6-14) Blood Urea Nitrogen 15 mg/dL (8-26) Creatinine 0.9 mg/dL (0.7-1.3) Estimated GFR (Cockcroft-Gault) 97.0 Glucose Level 64 mg/dL (70-99) Calcium Level 8.2 mg/dL (8.5-10.1) Assessment and Plan Assessmemt and Plan Assessment: Unstageable sacral ulcer. Stage 2 ulcer left inner knee. DTI left heel Plan: Wound Care. IV antibiotics. DC to [facility]. Continue home meds. PT OT. Comment Review of Relevant I have reviewed the following items adwoa (where applicable) has been applied. Justifications for Admission Other Justification TREVOR ISABEL III DO Jan 17, 2020 11:36
--- NOTE | 2020-01-17 11:50 | SNU/HH DC ---
DISCHARGE ORDERS DISCHARGE INFORMATION: CONDITION ON DISCHARGE: Stable CODE STATUS: Code Status: Full PRISON: SNF STAY <30 DAYS: Yes HOSPICE: HOSPICE: No HOSPICE EVAL & TREAT: No LTAC: ADMIT TO LTAC: No POST DISCHARGE ORDERS: ACTIVITY ORDERS: Activity as tolerated WEIGHT BEARING STATUS: Other, see below DIET AFTER DISCHARGE: Cardiac WOUND/INCISION CARE: No wound care needed CHECKS AFTER DISCHARGE: CHECKS AFTER DISCHARGE: Check blood press - daily TREATMENT/EQUIPMENT ORDERS: ADAPTIVE EQUIPMENT NEEDED: None Physical Therapy For: Evalulation/Treatment Occupational Therapy For: Evaluation/Treatment Speech Language Pathology For: Evaluation/Treatment DISCHARGE MEDICATIONS: Home Meds Reported Medications Multivitamin (ONE-A-DAY ESSENTIAL) 1 Each Tablet, 1 TAB PO DAILY for supplement for 30 Days, #30 TAB 0 Refills 01/12/20 Ascorbic Acid (VITAMIN C) 500 Mg Tablet, 500 MG PO DAILY for supplement , TAB 01/12/20 Tamsulosin Hcl (FLOMAX) 0.4 Mg Cap.er.24h, 1 CAP PO DAILY for BPH, #30 CAP 11 Refills 01/12/20 Acetaminophen (TYLENOL) 325 Mg Tablet, 650 MG PO Q6HRS, TAB 06/07/17 Levetiracetam (KEPPRA) 750 Mg Tablet, 750 MG PO BID, TAB 06/07/17 TREVOR ISABEL III DO Jan 17, 2020 11:50
[2020-01-17] MEDS ORDERED: LIDOCAINE WITH 8.4% SOD BICARB 3 ML DISP.SYRIN. ONE (14:05)
[2020-01-17] MEDS ORDERED: LIDOCAINE WITH 8.4% SOD BICARB 3 ML DISP.SYRIN. INJ ONE (14:30)
--- NOTE | 2020-01-17 14:52 | RAD ---
Exam: Fluoroscopic and ultrasound guided right percutaneous inserted central venous catheter placement 01/17/2020 12:48 PM .Indication: intermediate project manager antibiotic WOUND COCCYX Technique: Informed oral and written consent were obtained. The right upper extremity was prepped and draped using sterile barrier technique. All elements of maximal sterile barrier technique including the use of a cap, mask, sterile gown, sterile gloves, large sterile sheet, appropriate hand hygiene, and 2% chlorhexidine for cutaneous antisepsis (or acceptable alternative antiseptic per current guidelines) were followed for this procedure.. Real-time ultrasound demonstrated a patent right cephalic vein which was prepped and draped in usual sterile fashion. 1% lidocaine used for local anesthesia. Using real-time ultrasound guidance the access needle percutaneously punctured the selected right cephalic vein. Reference ultrasound images were saved to the medical record. A guidewire was advanced through the needle to the cavoatrial junction, and a peel-away sheath placed. The catheter was cut to length and inserted through the peel-away sheath such that its tip is at the cavoatrial junction. The wire and sheath were removed, and the catheter secured in place, and a sterile dressing was applied. Catheter was found to flush and aspirate normally. No immediate complications are identified. FLUORO TIME: 0.5 minutes DOSE AREA PRODUCT: 0.5 Gycm2 Impression: Ultrasound and fluoroscopically guided placement of a right upper extremity PICC line.
[2020-01-17 15:00] VITALS: BP 93/48
--- NOTE | 2020-01-17 15:23 | NUR ---
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 Pt of Kriss Christianson at [facility] Treatment Recommendations/Plan: Place wound vac, verafdemi CONTEH , 125 mmHg pressure. Education provided: PU prevention, WC protocol Offloading surface/device: P500 bed, TQ2 Recommended Referrals/Tests: none Discharge Recommendations for dressings: discharge with wound vac Addendum: 01/17/20 at 1529 by ESTEFANI AMBROSIO RN 14ml NS for 5 min every 4 hours
--- NOTE | 2020-01-17 15:34 | PDOC ---
Progress Note-Wound Care SUBJECTIVE Unstageable sacral wound, status post debridement in OR today per Dr. Baez. Patient states that he is feeling well. Patient denies pain at this time. Patient states that he has a good appetite without nausea, vomiting or diarrhea. Patient denies cough or shortness of breath. OBJECTIVE Vital Signs Vital Signs Date Time Temp Pulse Resp B/P (MAP) Pulse Ox O2 Delivery O2 Flow Rate FiO2 01/16/20 07:00 97.9 78 16 119/64 (82) 97 Room Air 97.9 01/16/20 14:13 6 Vital Signs Date Time Temp Pulse Resp B/P (MAP) Pulse Ox O2 Delivery O2 Flow Rate FiO2 01/17/20 11:00 98.8 82 16 105/60 (75) 97 Room Air 98.8 01/16/20 14:13 6 Physical Exam: Patient awake and alert 84-year-old -[place] male in no apparent distress. Patient pleasant in conversation and is a good historian. Vital signs are stable. Patient is afebrile. Respirations are even and unlabored. Patient is on room air not requiring supplemental oxygen at this time. Abdomen is soft, nondistended and nontender to palpation. Skin is warm, dry and pink. The left heel presents with a dry intact eschar that is beginning to pill at the edges. There is no surrounding erythema or edema present. The left lateral knee has a healed pressure wound that now presents with hypopigmented scarring. There is no surrounding erythema or edema present. The sacral wound was debrided in the OR today per Dr. Ruano, surgeon. Open ulceration measures 5.6 x 6.0 x 3.8 cm. Wound bed is 40% then slough and 60% granulation. Bone is not palpable or visible at this time. There is moderate serosanguineous drainage. No odor following cleansing. Periwound is without erythema or edema. Edges are attached and non-rolling. PLAN 1) Unstageable sacral pressure wound, status post surgical debridement per Dr. Baez today -Initiate vera flow at -125 mmHg continuous with saline rinses every 6 hours -Ensure areas offloaded at all times -Patient is on low air loss mattress -Foam wedge in room to encourage side to side lying positions -Dietary consult to ensure patient with adequate protein intake for optimal wound healing -Patient was placed on vancomycin with PICC line placement per PCP 2) Unstageable pressure wound to the left heel, presents as dry hardened eschar -Skin-Prep twice daily and leave open to air -Ensure heel is offloaded at all times -Recommend heel medics boots for offloading ARIELLE FINLEY APRN Jan 17, 2020 15:34
[2020-01-17 19:00] VITALS: BP 117/61
[2020-01-17] MEDS: ENOXAPARIN 40 MG/0.4 ML SYRINGE. SQ SCH (22:08)
[2020-01-17 23:00] VITALS: BP 130/71
[2020-01-18] MEDS: PIPERACILLIN/TAZOBACTAM 3.375 GM in IV NORMAL SALINE 50ML 50 ML IV SCH ×2 (02:09→06:19)
[2020-01-18 03:00] VITALS: BP 99/51
[2020-01-18 06:29] LABS: BASO # 0.1 x10^3/uL (0.0-0.2); BASO % 1 % (0-3); EOS # 0.3 x10^3/uL (0.0-0.7); EOS % 5 % (0-3); HEMATOCRIT 35.3 % (39.0-53.0); HEMOGLOBIN 12.2 g/dL (13.0-17.5); LYMPH # 1.5 x10^3/uL (1.0-4.8); LYMPH % 27 % (24-48); MEAN CORPUSCULAR HEMOGLOBIN 29 pg (25-35); MEAN CORPUSCULAR HGB CONC 34 g/dL (31-37); MEAN CORPUSCULAR VOLUME 84 fL (79-100); MONO # 0.7 x10^3/uL (0.0-1.1); MONO % 13 % (0-9); NEUT # 2.9 x10^3/uL (1.8-7.7); NEUT % 54 % (31-73); PLATELET COUNT 220 x10^3/uL (140-400); RED BLOOD COUNT 4.19 x10^6/uL (4.30-5.70); RED CELL DISTRIBUTION WIDTH 14.8 % (11.5-14.5); WHITE BLOOD COUNT 5.5 x10^3/uL (4.0-11.0)
[2020-01-18 06:45] LABS: CALCIUM 8.4 mg/dL (8.5-10.1); GFR 85.9; POTASSIUM 4.1 mmol/L (3.5-5.1)
[2020-01-18 07:00] VITALS: BP 122/72
[2020-01-18] MEDS: MULTIVITAMIN with MINERAL TABLET. PO SCH (08:34)
[2020-01-18] MEDS: levETIRAcetam 250 MG TABLET PO SCH (08:34)
[2020-01-18] MEDS: TAMSULOSIN 0.4 MG CAP.ER.24H. PO SCH (08:34)
[2020-01-18] MEDS: ASCORBIC ACID 500 MG TABLET PO SCH (08:34)
[2020-01-18] MEDS: LACTOBACILLUS RHAMNOSUS GG 1 CAPSULE. PO SCH (08:34)
--- NOTE | 2020-01-18 09:42 | PDOC ---
Infectious Disease Note Vital Sign Vital Signs Vital Signs Date Time Temp Pulse Resp B/P (MAP) Pulse Ox O2 Delivery O2 Flow Rate FiO2 01/18/20 07:00 98.0 74 18 122/72 (89) 96 Room Air 98.0 Labs Lab Laboratory Tests Test 01/18/20 06:10 White Blood Count 5.5 x10^3/uL (4.0-11.0) Red Blood Count 4.19 x10^6/uL (4.30-5.70) Hemoglobin 12.2 g/dL (13.0-17.5) Hematocrit 35.3 % (39.0-53.0) Mean Corpuscular Volume 84 fL (79-100) Mean Corpuscular Hemoglobin 29 pg (25-35) Mean Corpuscular Hemoglobin Concent 34 g/dL (31-37) Red Cell Distribution Width 14.8 % (11.5-14.5) Platelet Count 220 x10^3/uL (140-400) Neutrophils (%) (Auto) 54 % (31-73) Lymphocytes (%) (Auto) 27 % (24-48) Monocytes (%) (Auto) 13 % (0-9) Eosinophils (%) (Auto) 5 % (0-3) Basophils (%) (Auto) 1 % (0-3) Neutrophils # (Auto) 2.9 x10^3/uL (1.8-7.7) Lymphocytes # (Auto) 1.5 x10^3/uL (1.0-4.8) Monocytes # (Auto) 0.7 x10^3/uL (0.0-1.1) Eosinophils # (Auto) 0.3 x10^3/uL (0.0-0.7) Basophils # (Auto) 0.1 x10^3/uL (0.0-0.2) Sodium Level 138 mmol/L (136-145) Potassium Level 4.1 mmol/L (3.5-5.1) Chloride Level 105 mmol/L (98-107) Carbon Dioxide Level 27 mmol/L (21-32) Anion Gap 6 (6-14) Blood Urea Nitrogen 13 mg/dL (8-26) Creatinine 1.0 mg/dL (0.7-1.3) Estimated GFR (Cockcroft-Gault) 85.9 Glucose Level 97 mg/dL (70-99) Calcium Level 8.4 mg/dL (8.5-10.1) Micro Microbiology 01/12/20 Blood Culture - Final, Complete NO GROWTH AFTER 5 DAYS Objective Assessment pt seen, consult dictated Plan Plan of Care / ANDREIA METZGER MD Jan 18, 2020 09:42
--- NOTE | 2020-01-18 09:57 | PDOC ---
SURGICAL PROGRESS NOTE DATE: 01/18/20 TIME: 09:56 Subjective no complaints d/w ID Vital Signs Vital Signs Date Time Temp Pulse Resp B/P (MAP) Pulse Ox O2 Delivery O2 Flow Rate FiO2 01/18/20 07:00 98.0 74 18 122/72 (89) 96 Room Air 98.0 I&O Intake and Output 01/18/20 07:00 Output Total 800 ml Balance -800 ml Output Urine Total 800 ml Stool Total 0 ml # Bowel Movements 1 General: Cooperative Skin: Other (wound clean, vac currently off) Labs Laboratory Tests Test 01/17/20 03:25 01/18/20 06:10 White Blood Count 5.1 x10^3/uL (4.0-11.0) 5.5 x10^3/uL (4.0-11.0) Red Blood Count 4.45 x10^6/uL (4.30-5.70) 4.19 x10^6/uL (4.30-5.70) Hemoglobin 13.0 g/dL (13.0-17.5) 12.2 g/dL (13.0-17.5) Hematocrit 38.2 % (39.0-53.0) 35.3 % (39.0-53.0) Mean Corpuscular Volume 86 fL (79-100) 84 fL (79-100) Mean Corpuscular Hemoglobin 29 pg (25-35) 29 pg (25-35) Mean Corpuscular Hemoglobin Concent 34 g/dL (31-37) 34 g/dL (31-37) Red Cell Distribution Width 15.2 % (11.5-14.5) 14.8 % (11.5-14.5) Platelet Count 219 x10^3/uL (140-400) 220 x10^3/uL (140-400) Neutrophils (%) (Auto) 53 % (31-73) 54 % (31-73) Lymphocytes (%) (Auto) 29 % (24-48) 27 % (24-48) Monocytes (%) (Auto) 13 % (0-9) 13 % (0-9) Eosinophils (%) (Auto) 5 % (0-3) 5 % (0-3) Basophils (%) (Auto) 1 % (0-3) 1 % (0-3) Neutrophils # (Auto) 2.7 x10^3/uL (1.8-7.7) 2.9 x10^3/uL (1.8-7.7) Lymphocytes # (Auto) 1.5 x10^3/uL (1.0-4.8) 1.5 x10^3/uL (1.0-4.8) Monocytes # (Auto) 0.7 x10^3/uL (0.0-1.1) 0.7 x10^3/uL (0.0-1.1) Eosinophils # (Auto) 0.2 x10^3/uL (0.0-0.7) 0.3 x10^3/uL (0.0-0.7) Basophils # (Auto) 0.0 x10^3/uL (0.0-0.2) 0.1 x10^3/uL (0.0-0.2) Sodium Level 139 mmol/L (136-145) 138 mmol/L (136-145) Potassium Level 4.5 mmol/L (3.5-5.1) 4.1 mmol/L (3.5-5.1) Chloride Level 105 mmol/L (98-107) 105 mmol/L (98-107) Carbon Dioxide Level 24 mmol/L (21-32) 27 mmol/L (21-32) Anion Gap 10 (6-14) 6 (6-14) Blood Urea Nitrogen 15 mg/dL (8-26) 13 mg/dL (8-26) Creatinine 0.9 mg/dL (0.7-1.3) 1.0 mg/dL (0.7-1.3) Estimated GFR (Cockcroft-Gault) 97.0 85.9 Glucose Level 64 mg/dL (70-99) 97 mg/dL (70-99) Calcium Level 8.2 mg/dL (8.5-10.1) 8.4 mg/dL (8.5-10.1) Laboratory Tests Test 01/18/20 06:10 White Blood Count 5.5 x10^3/uL (4.0-11.0) Red Blood Count 4.19 x10^6/uL (4.30-5.70) Hemoglobin 12.2 g/dL (13.0-17.5) Hematocrit 35.3 % (39.0-53.0) Mean Corpuscular Volume 84 fL (79-100) Mean Corpuscular Hemoglobin 29 pg (25-35) Mean Corpuscular Hemoglobin Concent 34 g/dL (31-37) Red Cell Distribution Width 14.8 % (11.5-14.5) Platelet Count 220 x10^3/uL (140-400) Neutrophils (%) (Auto) 54 % (31-73) Lymphocytes (%) (Auto) 27 % (24-48) Monocytes (%) (Auto) 13 % (0-9) Eosinophils (%) (Auto) 5 % (0-3) Basophils (%) (Auto) 1 % (0-3) Neutrophils # (Auto) 2.9 x10^3/uL (1.8-7.7) Lymphocytes # (Auto) 1.5 x10^3/uL (1.0-4.8) Monocytes # (Auto) 0.7 x10^3/uL (0.0-1.1) Eosinophils # (Auto) 0.3 x10^3/uL (0.0-0.7) Basophils # (Auto) 0.1 x10^3/uL (0.0-0.2) Sodium Level 138 mmol/L (136-145) Potassium Level 4.1 mmol/L (3.5-5.1) Chloride Level 105 mmol/L (98-107) Carbon Dioxide Level 27 mmol/L (21-32) Anion Gap 6 (6-14) Blood Urea Nitrogen 13 mg/dL (8-26) Creatinine 1.0 mg/dL (0.7-1.3) Estimated GFR (Cockcroft-Gault) 85.9 Glucose Level 97 mg/dL (70-99) Calcium Level 8.4 mg/dL (8.5-10.1) Assessment/Plan continue wound care, vac abx per ID Justicifation of Admission Dx: Justifications for Admission: Justification of Admission Dx: Yes Acute Renal Failure: 75% Reduction in GFR Altered Mental Status: Altered Mental Status HEENA LIVE [employer]ER Jan 18, 2020 09:57
--- NOTE | 2020-01-18 10:10 | NUR ---
ARMANI following. Discussed with RN, pt ready to discharge to [facility] today. Will need PICC line removed as pt only needing oral abx. [facility] has a wound vac ready for pt. ARMANI will continue to follow. Addendum: 01/18/20 at 1223 by NILDA LOMELI Discharge orders faxed to [facility]. Transportation arranged with [facility] transportation at 1430. RN notified.
[2020-01-18 11:00] VITALS: BP 120/70
--- NOTE | 2020-01-18 11:02 | CONS ---
DATE OF CONSULTATION: 01/18/2020 REQUESTING PHYSICIAN: Dr. Boland. REASON FOR CONSULTATION: Antibiotic management. HISTORY OF PRESENT ILLNESS: This is an 84-year-old -[place] gentleman who came in from nursing facility with a pressure wound on the sacral region into the left knee and left heel. The patient eventually underwent surgery on 01/16/2020 with excisional debridement of the sacral decubitus ulcer of skin and subcutaneous tissue and no obvious bone involvement. The patient has been receiving IV Zosyn and vancomycin and consult has been requested to further decide on antibiotics. The patient is alert, awake. Denies any nausea, vomiting, diarrhea. Denies any chest pain, shortness of breath, abdominal pain. The patient is very weak and debilitated, although apparently, he is able to walk with some support of a walker. His white count has been normal. There are no cultures done. Creatinine has been normal. 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 SOCIAL HISTORY: Negative for smoking, alcohol or illicit drug use. ALLERGIES: No known drug allergies. CURRENT MEDICATIONS: Reviewed. REVIEW OF SYSTEMS: As per HPI, all other systems reviewed and are negative. PHYSICAL EXAMINATION: GENERAL: Alert, oriented gentleman who is able to communicate simple questions and answers, not in distress. VITAL SIGNS: Stable, afebrile. HEENT: Both pupils are round and reacting. No conjunctival lesion, no lesion in the mouth. NECK: Supple, no JVP, no lymphadenopathy. LUNGS: Clear. HEART: S1, S2 regular. ABDOMEN: Soft, nontender, no organomegaly. EXTREMITIES: No edema, cyanosis. SKIN: Unremarkable except sacrococcygeal wound visualized. It is a clean wound, deep, not to the bone. There is no tunneling and the left knee wound is very superficial and there is a left calcaneal area that has a black eschar. Rest of skin exam is unremarkable. NEUROLOGIC: The patient does move all the extremities and able to communicate, although memory is poor. LABORATORY DATA: White count is normal. BUN and creatinine is normal. His albumin is 2.4. CRP is 39.1. Blood culture on 01/12/2020 was negative. X-ray reviewed. MRI was ordered, but has not been done. IMPRESSION: 1. Sacrococcygeal decubitus. It is clean and not to the bone at least clinically and surgically. 2. Left calcaneal eschar depth cannot be judged. 3. Seizure disorder. 4. Cerebrovascular accident. 5. Debility with a self-care problem. 6. Pacemaker in place. 7. Gastroesophageal reflux disease. RECOMMEND: With the way it looks, the patient does not need long-term IV antibiotics. The patient can be switched over to p.o. Augmentin for discharge, now, if MRI is done and if it shows involvement of the bone, then he may need IV antibiotics, but clinically, he does not appear to have osteomyelitis. Thank you very much Offload is very important, which I do not know how much he is able to or facility is able to do Thank you very much, Dr. Boland, for giving me the opportunity to participate in this patient's care. ANDREIA METZGER MD DR: RAMÓN/hawa JOB#: [id number] / [id number]
[2020-01-18] MEDS: VANCOMYCIN PER PHARMACY MC PRN (11:07)
[2020-01-18] MEDS ORDERED: LACT1CAP6 PO (11:09)
[2020-01-18] MEDS ORDERED: ALBU2.5V5 NEB (11:09)
[2020-01-18] MEDS ORDERED: GUAI-108 PO (11:10)
[2020-01-18] MEDS ORDERED: DOCU240C13 PO (11:11)
[2020-01-18] MEDS ORDERED: ONDA4TAB12 PO ×2 (11:21→11:22)
[2020-01-18] MEDS ORDERED: ZOLP3.5T2 SL (11:21)
[2020-01-18] MEDS ORDERED: AMOX1TAB11 PO (11:24)
[2020-01-18] MEDS ORDERED: DOXY100T PO (11:24)
--- NOTE | 2020-01-18 11:26 | SNU/HH DC ---
DISCHARGE ORDERS DISCHARGE INFORMATION: CONDITION ON DISCHARGE: Stable CODE STATUS: Code Status: Full USP: SNF STAY <30 DAYS: Yes HOSPICE: HOSPICE: No HOSPICE EVAL & TREAT: No POST DISCHARGE ORDERS: ACTIVITY ORDERS: Activity as tolerated WEIGHT BEARING STATUS: Other, see below DIET AFTER DISCHARGE: Cardiac WOUND/INCISION CARE: No wound care needed CHECKS AFTER DISCHARGE: CHECKS AFTER DISCHARGE: Check blood press - daily TREATMENT/EQUIPMENT ORDERS: ADAPTIVE EQUIPMENT NEEDED: None Physical Therapy For: Evalulation/Treatment Occupational Therapy For: Evaluation/Treatment Speech Language Pathology For: Evaluation/Treatment DISCHARGE MEDICATIONS: Home Meds Active Scripts Doxycycline Hyclate (DOXYCYCLINE HYCLATE) 100 Mg Tablet, 100 MG PO BID for infection for 10 Days, #20 TAB Prov:CASTLE,NIAL K III DO 01/18/20 Amoxicillin/Potassium Clav (AMOX TR-K CLV 875-125 MG TAB) 1 Each Tablet, 1 TAB PO BID for infection for 7 Days, #14 TAB Prov:CASTLE,NIAL K III DO 01/18/20 Reported Medications Ondansetron (ONDANSETRON ODT) 4 Mg Tab.rapdis, 0.5 TAB PO PRN Q6-8HRS for N/ V, #8 TAB 01/18/20 Ondansetron (ONDANSETRON ODT) 4 Mg Tab.rapdis, 1 TAB PO PRN Q6-8HRS for NV, #16 TAB 01/18/20 Zolpidem Tartrate (Zolpidem Tartrate) 3.5 Mg Tab.subl, 1 TAB SL PRN QHS PRN for sleep MDD 1 Tablet(s) for 30 Days, #30 TAB 0 Refills 01/18/20 Docusate Calcium (DOCUSATE CALCIUM) 240 Mg Capsule, 1 CAP PO BID for hard stools for 30 Days, #62 CAP 0 Refills 01/18/20 Guaifenesin/Dextromethorphan (MUCINEX DM ER 600-30 MG TABLET) 1 Each Tab.er.12h, 1 TAB PO PRN BID PRN for cough and congestion for 10 Days, #20 TAB 0 Refills 01/18/20 Albuterol Sulfate (ALBUTEROL SULFATE NEB SOLN) 2.5 Mg/3 Ml Vial.neb, 1 VIAL NEB PRN Q4HRS for SOA, #50 VIAL 01/18/20 Lactobacillus Acidophilus (PROBIOTIC) 1 Each Capsule, 1 CAP PO BID for probiotic for 10 Days, #20 CAP 0 Refills 01/18/20 Multivitamin (ONE-A-DAY ESSENTIAL) 1 Each Tablet, 1 TAB PO DAILY for supplement for 30 Days, #30 TAB 0 Refills 01/12/20 Ascorbic Acid (VITAMIN C) 500 Mg Tablet, 500 MG PO DAILY for supplement , TAB 01/12/20 Tamsulosin Hcl (FLOMAX) 0.4 Mg Cap.er.24h, 1 CAP PO DAILY for BPH, #30 CAP 11 Refills 01/12/20 Acetaminophen (TYLENOL) 325 Mg Tablet, 650 MG PO Q6HRS, TAB 06/07/17 Levetiracetam (KEPPRA) 750 Mg Tablet, 750 MG PO BID, TAB 06/07/17 TREVOR ISABEL III DO Jan 18, 2020 11:26
--- NOTE | 2020-01-18 12:54 | PDOC ---
[facility] PROGRESS NOTE Date of Service DOS: DATE: 01/18/20 TIME: 12:50 Chief Complaint Chief Complaint Unstageable sacral decubitus ulcer History of Present Illness History of Present Illness 01/18/2020 Pt seen and examined. WILFREDO RN and CECY. Double lumen PICC noted to right arm. 01/17/2020 Pt was seen and examined. WILFREDO RN and CECY. Debridement w/o complications. 01/16/2020 Pt was seen and evaluate. WILFREDO RN. WILFREDO case management. 01/15/2020 Pt was seen and evaluated. WILFREDO RN WILFREDO case management. 01/12 Patient lying in bed in no acute distress, he was urinating on his tray cover since he could not fing his urinal Patient's meds are reconciled and will restart especially his Flomax patient having trouble with urinary retention seems like. NO new complaints. 01/13 No acute events reported overnight, case discussed with nursing staff patient in no acute distress no complaints during my visit, awaiting for surgical device sales representative recommendations Vitals/I&O Vitals/I&O: Vital Signs Date Time Temp Pulse Resp B/P (MAP) Pulse Ox O2 Delivery O2 Flow Rate FiO2 01/18/20 11:00 98.2 76 18 120/70 (87) 98 Room Air 98.2 I & O 01/17/20 01/17/20 01/18/20 15:00 23:00 07:00 Output Total 200 ml 600 ml Balance -200 ml -600 ml Physical Exam General: Alert, Oriented X3, Cooperative Heart: Normal S1, Normal S2 Lungs: Clear Abdomen: Soft Extremities: No edema, Other (Left inner superficial knee ulcer, but clean, wound pictures of sacral ulcer with fibrinous debris.) Skin: Other (wound clean, vac currently off) Labs Labs: Laboratory Tests Test 01/18/20 06:10 White Blood Count 5.5 x10^3/uL (4.0-11.0) Red Blood Count 4.19 x10^6/uL (4.30-5.70) Hemoglobin 12.2 g/dL (13.0-17.5) Hematocrit 35.3 % (39.0-53.0) Mean Corpuscular Volume 84 fL (79-100) Mean Corpuscular Hemoglobin 29 pg (25-35) Mean Corpuscular Hemoglobin Concent 34 g/dL (31-37) Red Cell Distribution Width 14.8 % (11.5-14.5) Platelet Count 220 x10^3/uL (140-400) Neutrophils (%) (Auto) 54 % (31-73) Lymphocytes (%) (Auto) 27 % (24-48) Monocytes (%) (Auto) 13 % (0-9) Eosinophils (%) (Auto) 5 % (0-3) Basophils (%) (Auto) 1 % (0-3) Neutrophils # (Auto) 2.9 x10^3/uL (1.8-7.7) Lymphocytes # (Auto) 1.5 x10^3/uL (1.0-4.8) Monocytes # (Auto) 0.7 x10^3/uL (0.0-1.1) Eosinophils # (Auto) 0.3 x10^3/uL (0.0-0.7) Basophils # (Auto) 0.1 x10^3/uL (0.0-0.2) Sodium Level 138 mmol/L (136-145) Potassium Level 4.1 mmol/L (3.5-5.1) Chloride Level 105 mmol/L (98-107) Carbon Dioxide Level 27 mmol/L (21-32) Anion Gap 6 (6-14) Blood Urea Nitrogen 13 mg/dL (8-26) Creatinine 1.0 mg/dL (0.7-1.3) Estimated GFR (Cockcroft-Gault) 85.9 Glucose Level 97 mg/dL (70-99) Calcium Level 8.4 mg/dL (8.5-10.1) Review of Systems Review of Systems: No pain. No fever or cough. Assessment and Plan Assessmemt and Plan Assessment: Unstageable sacral ulcer. Stage 2 ulcer left inner knee. DTI left heel HX CVA. Hx. epilepsy. Plan: Abx per ID. May not require IV antibiotics, ID recommends MRI for further information. Wound care. DC to [facility]. PT OT. DVT prophylaxis. Cardiac diet. Seizure precautions. Continue Home meds. Appreciate subspecialty input. Comment Review of Relevant I have reviewed the following items adwoa (where applicable) has been applied. Medications: Current Medications Medications (Trade) Dose Ordered Sig/Sriram Route PRN Reason Start Time Stop Time Status Last Admin Dose Admin Lidocaine HCl (Buffered Lidocaine 1%) 3 ml 1X ONCE INJ 01/17/20 14:30 01/17/20 14:44 DC 01/17/20 14:30 Justifications for Admission Other Justification TREVOR ISABEL III DO Jan 18, 2020 12:54
--- NOTE | 2020-01-18 16:47 | NUR ---
Transportation took patient to [facility], gave report Edmundo HERNANDEZ at 135. PICC line Discontinued by this RN and Jose Armando MARINO. Pt tolerated well. PT worked with patient to ambulate with walker.
--- NOTE | 2020-01-18 17:07 | PATHOLOGY ---
[facility] Accession Number: [id number] . 01 Material submitted: . sacrum - SACRAL ULCER . 01 Clinical history: . SACRAL COCCYX WOUND . 02 Diagnosis: Skin and subcutaneous tissue, sacral ulcer debridement: - Ulcer with extensive coagulative necrosis and acute inflammation. 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 02 Electronically signed: . Nitin Briones MD, Pathologist NPI- [id number] . 01 Gross description: . The specimen is received in formalin, labeled "Rezelee Brown, sacral ulcer". Received is an irregular segment of dominguez-madrigal to necrotic-appearing skin with attached underlying soft tissue measuring 4.9 x 4.5 x 2.3 cm in greatest dimensions. The specimen is submitted representatively in cassette A1. ([facility]; 01/17/2020) [facility] 01/17/2020 1701 Local . 02 Pathologist provided ICD-10: I96, L08.9, L98.499 . 02 CPT . 672506 Specimen Comment: A courtesy copy of this report has been sent to [phone], [phone] Specimen Comment: [phone] Specimen Comment: Report sent to ,DR AVILEZ / DR ISABEL Performed at: 01 [facility] [address], [place] [id number] MD Jimbo Paz MD Phone: [phone] Performed at: 02 [facility] [address], [place] [id number] MD Nitin Briones MD Phone: [phone]
[2020-01-18] MEDS ORDERED: AMOXICILLIN/K CLAV 875/125MG TABLET. PO SCH (21:00)
[2020-01-18] MEDS ORDERED: DOXYCYCLINE HYCLATE 100 MG TABLET PO SCH (21:00)
--- NOTE | 2020-01-21 13:49 | DS ---
DATE OF DISCHARGE: 01/18/2020 ADMISSION DIAGNOSIS: Sacrococcyx wound. DISCHARGE DIAGNOSES: 1. Resolving sacrococcyx wound with debridement. 2. Debility. HOSPITAL COURSE: The patient is a pleasant 84-year-old male who presented with sacrococcyx wound. He is also debilitated. He was admitted. We did wound care. We debrided, gave him IV antibiotics, did some physical therapy and occupational therapy. Over the next few days, he returned to his baseline. We discharged to [facility]. DISPOSITION: [facility]. ACTIVITY: As tolerated. DIET: Low sodium. MEDICATIONS: Please see the MRAD. TOTAL TIME: 32 minutes. TREVOR ISABEL DO DR: MARCOS/hawa JOB#: [id number] / [id number]
== END 2020-01-18 14:55 | DRG 570 ==
LOC: 4 NORTH 14:02
PROVIDERS: ADMIT Family Medicine; ATTEND Family Medicine
PROC: 0JB70ZZ Excision of Back Subcutaneous Tissue and Fascia, Open Approach (ICD-10-PCS; principal; 2020-01-16 12:30)
PROC: 02HV33Z Insertion of Infusion Device into Superior Vena Cava, Percutaneous Approach (ICD-10-PCS; 2020-01-17)
PROC: B548ZZA Ultrasonography of Superior Vena Cava, Guidance (ICD-10-PCS; 2020-01-17)
DX: L89.150 Pressure ulcer of sacral region, unstageable (principal); E43 Unspecified severe protein-calorie malnutrition; L89.622 Pressure ulcer of left heel, stage 2; F03.90 Unspecified dementia, unspecified severity, without behavioral disturbance, psychotic disturbance, mood disturbance, and anxiety; G40.909 Epilepsy, unspecified, not intractable, without status epilepticus; J44.9 Chronic obstructive pulmonary disease, unspecified; K21.9 Gastro-esophageal reflux disease without esophagitis; N40.0 Benign prostatic hyperplasia without lower urinary tract symptoms; Z86.73 Personal history of transient ischemic attack (TIA), and cerebral infarction without residual deficits; Z95.0 Presence of cardiac pacemaker; Z96.642 Presence of left artificial hip joint; G47.33 Obstructive sleep apnea (adult) (pediatric); F10.20 Alcohol dependence, uncomplicated; Y90.9 Presence of alcohol in blood, level not specified; L89.892 Pressure ulcer of other site, stage 2; Z68.31 Body mass index [BMI] 31.0-31.9, adult; Z20.828 Contact with and (suspected) exposure to other viral communicable diseases
CPT/HCPCS: 36415; 36573; 73630; 77001; 80048; 80053; 80202; 82565; 84443; 85025; 85610; 86140; 87040; 87426; 88304; A7015; C1751; C1892; J0330; J1650; J2370; J2405; J2543; J2704; J3010; J3370; J3490; J7040; J7050; 97110-GP; 97116-GP; 97530-GO; 97530-GP; 97535-GO; A4461; G0378; J7030; U0003-CS

== ENCOUNTER → 2020-03-06 | Outpatient (CLI) | payer MEDICARE ==
[~2020-03-06] MED LIST changes: +ALBU2.5V5 NEB; +AMOX1TAB11 PO; +ASCO500T4 PO; +DOCU240C13 PO; +DOXY100T PO; +GADOTERATE 7.5 MMOL/15ML VIAL. IVP ONE; +GUAI-108 PO; +LACT1CAP6 PO; +MULT-154 PO; +ONDA4TAB12 PO; +TAMS0.4C97 PO; +ZOLP3.5T2 SL
--- NOTE | 2020-03-06 10:08 | RAD ---
EXAM: Chest, single view. HISTORY: MRI clearance. COMPARISON: 12/23/2019 FINDINGS: A frontal view of the chest is obtained. There may be trace bilateral pleural effusions. There is no consolidation. There is no pneumothorax. The heart is stable in size. IMPRESSION: 1. Possible trace bilateral pleural effusions. 2. No consolidated infiltrate. 3. No foreign body to preclude MRI. Electronically signed by: Martha Quintanilla MD (03/06/2020 10:05 AM) [id number]
--- NOTE | 2020-03-06 13:44 | RAD ---
EXAM: MRI posterior pelvis/sacrum with and without IV contrast CLINICAL HISTORY: Low Back Pain COMPARISON: None TECHNIQUE: Multiplanar, multisequence MRI imaging of the posterior pelvis/SI joints was performed with and without IV contrast. FINDINGS: Diffuse soft tissue edema with associated ulceration at the dorsal aspect of the proximal sacrum. Signal changes extend to ossification fascial with associated paraspinal muscular edema. Within the limitations of motion artifact, no definite T1 marrow replacement is seen to suggest osteomyelitis. No evidence for SI joint erosive change or findings for sacroiliitis. Changes of left total hip arthroplasty are seen. Postsurgical changes of the left ischial tuberosity. These findings result in susceptibility artifact limiting evaluation of the left hemipelvis/sacrum. On this marginal evaluation of the intrapelvic contents, no pelvic mass, lymphadenopathy or ascites. Bladder wall thickening may be seen with cystitis. Multilevel degenerative changes of the lower lumbar spine are partially profiled. A small synovial cyst arises from the left posterior L4-5 facet joint. IMPRESSION: 1. Decubitus ulceration overlying the posterior midline sacrum without evidence for osteomyelitis. Associated soft tissue and paraspinal muscular edema is seen Electronically signed by: Ben Carson MD (03/06/2020 1:41 PM) ANGELA
== END ==
LOC: MRI 10:39
PROVIDERS: ATTEND Nurse Practitioner Family
DX: S39.92XA Unspecified injury of lower back, initial encounter (principal); M46.28 Osteomyelitis of vertebra, sacral and sacrococcygeal region; A18.01 Tuberculosis of spine; M47.816 Spondylosis without myelopathy or radiculopathy, lumbar region; M71.38 Other bursal cyst, other site; Z96.642 Presence of left artificial hip joint; X58.XXXA Exposure to other specified factors, initial encounter; Y93.89 Activity, other specified; Y92.89 Other specified places as the place of occurrence of the external cause; Y99.8 Other external cause status
CPT/HCPCS: 71045; 72197; A9575